=== PATIENT | male | born 1955 | race Caucasian/White ===

== ENCOUNTER 2021-07-16 11:02 | Outpatient (CLI) | payer OTHER, MEDICARE, SELFPAY ==
--- NOTE | 2021-10-12 08:50 | ONC FU_ITS ---
Dr. Canseco follow up note Patient: Junior Gloria Unit #: [id number]: 1955 Dicatated By: Soren Canseco M.D.Date of Visit:Jul 16, 2021 Onc Med Follow-up/Prog Note History of Present Illness: Mr. 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, renal sinus vessels, perinephric adipose tissue, Gerota's fascia, and a single perinephric lymph node replaced by tumor and pathology stage was pT4, pN1, subsequently patient underwent follow-up and during follow-up CT scan of abdomen pelvis done on January 24, 2020 showed multiple enhancing soft tissue nodule on the left, adjacent to the spleen, left para-aortic., and abutting the hemidiaphragm and posterior abdominal wall., Patient underwent CT-guided biopsy of intra-abdominal lesion which confirmed recurrence of disease and systemic therapy with Opdivo/Yervoy was recommended and given every 3 weeks x 4 starting February 2020, completed on April 27, 2020,, follow-up CT scan of abdomen showed slight increase in size of several nodules but was considered and confirmed all possible pseudoprogression by immunotherapy subsequently started on biweekly Opdivo On May 18, 2020, Tolerating well except off and on hypokalemia treated with supplements.Patient received all those treatment at midnight [facility] in [place], [place] Patient denies any history of wheezing, denies any history of skin rash, denies any history of jaundice or uncontrolled diarrhea. Denies any intolerance to cold or warm weather. Patient denies any hemoptysis or hematemesis denies any hematuria denies any abdominal pain denies any jaundice denies any lower extremity edema denies any shortness of breath or palpitation denies any weight loss Medications: Ezetimibe 1 Tablet (of 10 mg) Oral daily, Losartan Potassium 1 Tablet (of 50 mg) Oral daily, Potassium 1 Tablet (of 99 mg) Oral daily, Sertraline HCl 1 Tablet (of 50 mg) Oral daily Allergies: No Known Allergies. Review of Systems: Review of Systems is not available for this patient. Vital Signs: Performed on Jul 16, 2021 13:14 Height - 69 in Weight - 238.8 lbs (HIGH) BSA - 2.23 sq.m BMI - 35.26 (HIGH) Temperature - 99.0 F (HIGH) Pulse - 50 /min (LOW) Respiration - 18 /min BP - 174/94 mm(hg) (HIGH) O2 Sat - 96 % Pain - 0 Fatigue - 0 Performance Status: 0 - Fully active, able to carry on all predisease activities without restrictions. (ECOG) Physical Examination: ENMT - No mouth sores, no thrush, no jaundice, Respiratory - Lungs are clear to auscultation, Cardiovascular - Regular rate and rhythm of heart, Abdomen - Soft, bowel sounds present, Extremities - No visible edema. Lab/Imaging: Most recent lab results are not available for this patient. 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 And soft tissue metastasis abutting spleen. Largest implant on the left hemidiaphragm previously measured 2.5 x 2 cm now 3.7 x 2.5 cm. There is an adjacent implant that has increased in size. And implant slightly more lateral to the spleen however is slightly less bulky. Left adrenal metastasis is also slightly smaller. Overall small left periaortic node at the level of adrenal gland has increased from 8 mm to 12 mm. Right kidney normal appearance. Plan: Discussed with patient regarding his disease status and treatment options, patient has no new signs symptom suggestive of disease progression, at this point, will consider baseline CBC, CMP, TSH and cortisol level. And also resume biweekly Opdivo 240 mg intravenously. All the side effect possible benefits were discussed again, patient is aware of long-term and short-term side effects with immunotherapy, as per patient he was alerted about hypokalemia associated with immunotherapy. [place] he is ready to resume his single agent Opdivo here in [place]. We will obtain approval from his insurance and restart him on Opdivo 240 mg intravenously every 2 weeks. And will consider follow-up CT scan of chest abdomen pelvis in a month. Once we have approval from his insurance, patient will return to clinic for his Opdivo infusion and return to clinic 2 weeks after his Opdivo infusion, with CBC CMP. Signed By: Soren Canseco M.D. <<Signature on File>>
== END 2021-07-16 11:03 | disposition home or self-care (01) ==
PROVIDERS: Visit Provider Internal Medicine Hematology & Oncology
DX: C64.2 Malignant neoplasm of left kidney, except renal pelvis (principal); C77.8 Secondary and unspecified malignant neoplasm of lymph nodes of multiple regions; C78.89 Secondary malignant neoplasm of other digestive organs; C79.72 Secondary malignant neoplasm of left adrenal gland; I10 Essential (primary) hypertension; E78.5 Hyperlipidemia, unspecified; F32.9 Major depressive disorder, single episode, unspecified; Z79.899 Other long term (current) drug therapy; Z92.25 Personal history of immunosuppression therapy; Z90.5 Acquired absence of kidney
CPT/HCPCS: 99205

== ENCOUNTER 2021-08-13 10:58 | Outpatient (CLI) | payer OTHER, MEDICARE, SELFPAY ==
[2021-08-13 11:37] LABS: Basophils % 0.7 %; Eosinophils # 0.1 10^3/uL (0.0-0.8); Eosinophils % 2.2 %; Hematocrit 46.7 % (42.0-52.0); Hemoglobin 15.3 g/dL (11.7-16.6); Lymphocytes # 1.9 10^3/uL (0.8-4.8); Lymphocytes % 33.4 %; Mean Corpuscular HGB Conc 32.8 g/dL (30.0-36.0); Mean Corpuscular Hemoglobin 29.1 pg (28.0-34.0); Mean Corpuscular Volume 88.8 fl (80-94); Mean Platelet Volume 9.8 fL (7.4-10.4); Monocytes # 0.7 10^3/uL (0.2-0.9); Monocytes % 11.5 %; Neutrophils # 3.02 10^3/uL (1.8-7.7); Nucleated Red Blood Cells % 0 %; Platelet Count 225 10^3/cmm (130-400); Red Blood Count 5.26 10^6/uL (4.1-5.3); Red Cell Distribution Width 12.2 % (12.1-15.1); White Blood Count 5.8 10^3/uL (4.0-10.0)
[2021-08-13 12:17] LABS: Alanine Aminotransferase 19 U/L (0-41); Albumin Level 4.1 g/dL (3.5-5.2); Alkaline Phosphatase 74 IU/L (40-130); Anion Gap 16.7 (5-19); Aspartate Amino Transferase 17 U/L (0-40); Blood Urea Nitrogen 18 mg/dL (8-23); Calcium 9.4 mg/dL (8.5-10.5); Carbon Dioxide 27 mmol/L (22-29); Chloride 101 mmol/L (98-107); Globulin 2.9 g/dL (1.3-4.6); Glucose 94 mg/dL (65-115); Osmolality Calculated 292 mOsm/kg (285-295); Potassium 4.7 mmol/L (3.5-5.1); Sodium 140 mmol/L (136-145); Thyroid Stimulating Hormone 1.37 uIU/mL (0.27-4.20); Total Bilirubin 0.6 mg/dL (0.15-1.2)
[2021-08-13 12:25] LABS: Cortisol Random 9.06 ug/dL (2.47-19.5)
== END 2021-08-13 10:59 | disposition home or self-care (01) ==
LOC: ONCMED 11:00
PROVIDERS: Visit Provider Internal Medicine Hematology & Oncology
DX: C64.2 Malignant neoplasm of left kidney, except renal pelvis (principal)
CPT/HCPCS: 36415; 80053; 82533; 84443; 85025

== ENCOUNTER 2021-08-22 09:55 | Outpatient (CLI) | payer MEDICARE, OTHER, SELFPAY ==
--- NOTE | 2021-08-22 10:07 | CT_ITS ---
WS: [id number] CT CHEST, ABDOMEN AND PELVIS WITH CONTRAST. HISTORY: MALIGNANT NEOPLASM OF LEFT KIDNEY TECHNIQUE: Contiguous 5 mm axial imaging performed through the chest, abdomen and pelvis with IV cont rast, oral contrast has been provided. Coronal and sagittal reformats chest. Coronal and sagittal ref ormats through the abdomen and pelvis. All CT scans at [facility] use at least one of these d ose optimization techniques: automated exposure control; mA and/or kV adjustment per patient size (in cludes targeted exams where dose is matched to clinical indication); or iterative reconstruction. CONTRAST: Omnipaque 300; 95 mL IV. DLP: 2520.43 mGycm COMPARISON: None available. Chest CT: No pulmonary nodule or mass. Area of irregular opacification at the medial LEFT lower lobe may be an area of atelectasis. No pleural effusion. No mediastinal or hilar adenopathy. Mild enlargem ent the LEFT heart chambers. No pericardial effusion. Normal variant LEFT vertebral artery arises fro m the aorta. Pulmonary artery is enlarged at 3.7 cm in diameter. Small hiatal hernia. Abdomen CT: Mild hepatic steatosis. 2. Small to characterize hypodense area measures 2 mm in the RIGHT lobe. Normal portal vein. Normal g allbladder. Normal pancreas. 11 mm nodule adjacent to the tail of the pancreas enhances similar to th e spleen. This is probably a splenule. Size of the spleen is normal. RIGHT kidney is normally enhanci ng. Normal RIGHT adrenal gland. Mild atherosclerosis aorta. Status post LEFT nephrectomy as per history. Abnormal appearance of the LEFT renal bed. There are mul tiple lobulated soft tissue masses beginning posterior to the spleen and along the LEFT diaphragmatic crura. Suspect this soft tissue implant is extending into the spleen. There is thickening of the LEF T diaphragmatic crura with multiple small nodules invading the crura extending posterior to the splee n and along the diaphragmatic surface. Soft tissue nodules and fatty infiltration extending into the LEFT para-aortic region. There is thickening of the LEFT psoas muscle at the level of the renal bed. Diaphragmatic crura largest mass measures 3.1 x 2.4 cm and has a necrotic appearing center. There are several soft tissue nodular densities which extend toward the expected location of the LEFT adrenal gland. Largest LEFT retroperitoneal nodule measures 3.1 x 3.1 cm. Additional cluster of soft tissue i mplants just lateral to the LEFT splenic flexure measures 3.7 x 2.5 cm. Multiple omental implants ant eriorly within the LEFT abdomen with the largest measuring 2.0 x [address]: No free fluid in the pelvis. No adenopathy. Slightly prominent heterogeneous prostate glan d with mild wall thickening of the urinary bladder. No osteoblastic or osteolytic bone disease. Subchondral lytic area involving the RIGHT femoral head. CT/CT chest abd pel w con* IMPRESSION: 1. Status post LEFT nephrectomy. 2. Findings consistent with recurrent LEFT renal metastatic disease. Numerous soft tissue implants are noted within the LEFT renal bed which extend into the diaphragmatic crura and LEFT psoas muscle. There are additional metastatic impl ants invading the posterior spleen and the adrenal gland. Omental implants clau g the anterior and LEFT lateral abdomen/omentum. Small implant versus splenule at the pancreatic tail. 3. Nonspecific lytic lesion in the RIGHT femoral head. Cannot exclude early me tastatic bone disease. 4. Irregular opacification medial LEFT lower lobe may be an area of atelectasi s. No pulmonary nodule or mass. 5. Mild pulmonary hypertension.
[2021-08-22] MEDS: iohexol 300 mg/mL 100 mL Btl IV (11:51)
== END 2021-08-22 09:56 | disposition home or self-care (01) ==
PROVIDERS: Visit Provider Internal Medicine Hematology & Oncology
DX: C64.2 Malignant neoplasm of left kidney, except renal pelvis (principal); Z90.5 Acquired absence of kidney; I27.20 Pulmonary hypertension, unspecified
CPT/HCPCS: 71260; 74177; Q9967

== ENCOUNTER 2021-08-27 13:30 | Outpatient (CLI) | payer MEDICARE, OTHER, SELFPAY ==
[2021-08-27 14:32] LABS: Basophils % 0.5 %; Eosinophils # 0.2 10^3/uL (0.0-0.8); Eosinophils % 2.6 %; Hematocrit 43.3 % (42.0-52.0); Hemoglobin 14.4 g/dL (11.7-16.6); Lymphocytes # 1.9 10^3/uL (0.8-4.8); Lymphocytes % 28.8 %; Mean Corpuscular HGB Conc 33.3 g/dL (30.0-36.0); Mean Corpuscular Hemoglobin 29.5 pg (28.0-34.0); Mean Corpuscular Volume 88.7 fl (80-94); Mean Platelet Volume 9.8 fL (7.4-10.4); Monocytes # 0.7 10^3/uL (0.2-0.9); Monocytes % 9.9 %; Neutrophils % 57.9 %; Nucleated Red Blood Cells % 0 %; Platelet Count 218 10^3/cmm (130-400); Red Blood Count 4.88 10^6/uL (4.1-5.3); Red Cell Distribution Width 12.4 % (12.1-15.1); White Blood Count 6.6 10^3/uL (4.0-10.0)
[2021-08-27 15:12] LABS: Albumin Level 4.1 g/dL (3.5-5.2); Alkaline Phosphatase 69 IU/L (40-130); Blood Urea Nitrogen 19 mg/dL (8-23); Calcium 8.7 mg/dL (8.5-10.5); Carbon Dioxide 29 mmol/L (22-29); Chloride 102 mmol/L (98-107); Cortisol Random 6.84 ug/dL (2.47-19.5); Globulin 2.4 g/dL (1.3-4.6); Glomerular Filtration Rate 60.6 mL/min (90-130); Glucose 119 mg/dL (65-115); Osmolality Calculated 293 mOsm/kg (285-295); Sodium 140 mmol/L (136-145); Thyroid Stimulating Hormone 1.56 uIU/mL (0.27-4.20); Total Bilirubin 0.3 mg/dL (0.15-1.2); Total Protein 6.5 g/dL (6.6-8.7)
[2021-08-27 15:15] LABS: Alanine Aminotransferase 18 U/L (0-41); Anion Gap 13.7 (5-19); Potassium 4.7 mmol/L (3.5-5.1)
[2021-08-27 15:20] LABS: Aspartate Amino Transferase 5 U/L (0-40)
== END 2021-08-27 13:31 | disposition home or self-care (01) ==
PROVIDERS: Visit Provider Internal Medicine Hematology & Oncology
DX: C64.2 Malignant neoplasm of left kidney, except renal pelvis (principal); Z79.899 Other long term (current) drug therapy
CPT/HCPCS: 36415; 80053; 82533; 84443; 85025

== ENCOUNTER 2021-09-10 08:47 | Outpatient (CLI) | payer MEDICARE, OTHER, SELFPAY ==
[2021-09-10 09:50] LABS: Basophils % 0.5 %; Eosinophils # 0.2 10^3/uL (0.0-0.8); Hematocrit 45.2 % (42.0-52.0); Hemoglobin 14.8 g/dL (11.7-16.6); Lymphocytes # 1.6 10^3/uL (0.8-4.8); Lymphocytes % 26.4 %; Mean Corpuscular HGB Conc 32.7 g/dL (30.0-36.0); Mean Corpuscular Hemoglobin 29.2 pg (28.0-34.0); Mean Corpuscular Volume 89.3 fl (80-94); Mean Platelet Volume 9.7 fL (7.4-10.4); Monocytes # 0.7 10^3/uL (0.2-0.9); Monocytes % 10.7 %; Neutrophils # 3.51 10^3/uL (1.8-7.7); Neutrophils % 58.1 %; Nucleated Red Blood Cells % 0 %; Platelet Count 224 10^3/cmm (130-400); Red Blood Count 5.06 10^6/uL (4.1-5.3); Red Cell Distribution Width 12.7 % (12.1-15.1); White Blood Count 6.1 10^3/uL (4.0-10.0)
[2021-09-10 09:59] LABS: Alanine Aminotransferase 17 U/L (0-41); Albumin Level 4.1 g/dL (3.5-5.2); Alkaline Phosphatase 73 IU/L (40-130); Blood Urea Nitrogen 18 mg/dL (8-23); Calcium 8.7 mg/dL (8.5-10.5); Carbon Dioxide 23 mmol/L (22-29); Chloride 103 mmol/L (98-107); Cortisol Random 9.22 ug/dL (2.47-19.5); Globulin 2.5 g/dL (1.3-4.6); Glomerular Filtration Rate 74.8 mL/min (90-130); Glucose 101 mg/dL (65-115); Osmolality Calculated 288 mOsm/kg (285-295); Sodium 138 mmol/L (136-145); Thyroid Stimulating Hormone 1.57 uIU/mL (0.27-4.20); Total Bilirubin 0.5 mg/dL (0.15-1.2); Total Protein 6.6 g/dL (6.6-8.7)
[2021-09-10 10:04] LABS: Anion Gap 16.7 (5-19); Aspartate Amino Transferase 19 U/L (0-40); Potassium 4.7 mmol/L (3.5-5.1)
== END 2021-09-10 08:48 | disposition home or self-care (01) ==
PROVIDERS: Visit Provider Internal Medicine Hematology & Oncology
DX: Z51.12 Encounter for antineoplastic immunotherapy (principal); C64.2 Malignant neoplasm of left kidney, except renal pelvis; K44.9 Diaphragmatic hernia without obstruction or gangrene; I70.0 Atherosclerosis of aorta; J98.11 Atelectasis; I27.20 Pulmonary hypertension, unspecified; Z79.899 Other long term (current) drug therapy
CPT/HCPCS: 80053; 82533; 84443; 85025; 99215; J7050; J9299

== ENCOUNTER 2021-09-24 14:29 | Outpatient (CLI) | payer MEDICARE, OTHER, SELFPAY ==
[2021-09-24 14:57] LABS: Basophils # 0.1 10^3/uL (0.0-0.1); Basophils % 0.7 %; Eosinophils # 0.2 10^3/uL (0.0-0.8); Eosinophils % 2.8 %; Hematocrit 45.4 % (42.0-52.0); Hemoglobin 15.1 g/dL (11.7-16.6); Lymphocytes # 2.1 10^3/uL (0.8-4.8); Lymphocytes % 30.1 %; Mean Corpuscular HGB Conc 33.3 g/dL (30.0-36.0); Mean Corpuscular Hemoglobin 29.3 pg (28.0-34.0); Mean Corpuscular Volume 88.2 fl (80-94); Mean Platelet Volume 9.8 fL (7.4-10.4); Monocytes # 0.7 10^3/uL (0.2-0.9); Neutrophils # 3.99 10^3/uL (1.8-7.7); Nucleated Red Blood Cells % 0 %; Platelet Count 230 10^3/cmm (130-400); Red Blood Count 5.15 10^6/uL (4.1-5.3); Red Cell Distribution Width 12.4 % (12.1-15.1); White Blood Count 7.1 10^3/uL (4.0-10.0)
[2021-09-24 15:29] LABS: Alanine Aminotransferase 18 U/L (0-41); Albumin Level 4.3 g/dL (3.5-5.2); Alkaline Phosphatase 80 IU/L (40-130); Anion Gap 17.3 (5-19); Aspartate Amino Transferase 17 U/L (0-40); Blood Urea Nitrogen 17 mg/dL (8-23); Calcium 8.9 mg/dL (8.5-10.5); Carbon Dioxide 24 mmol/L (22-29); Chloride 100 mmol/L (98-107); Cortisol Random 7.63 ug/dL (2.47-19.5); Glomerular Filtration Rate 74.8 mL/min (90-130); Glucose 84 mg/dL (65-115); Osmolality Calculated 285 mOsm/kg (285-295); Potassium 4.3 mmol/L (3.5-5.1); Sodium 137 mmol/L (136-145); Thyroid Stimulating Hormone 1.65 uIU/mL (0.27-4.20); Total Bilirubin 0.4 mg/dL (0.15-1.2); Total Protein 7.3 g/dL (6.6-8.7)
== END 2021-09-24 14:30 | disposition home or self-care (01) ==
LOC: ONCMED 14:36
PROVIDERS: Visit Provider Nurse Practitioner Family
DX: C64.2 Malignant neoplasm of left kidney, except renal pelvis (principal); C77.2 Secondary and unspecified malignant neoplasm of intra-abdominal lymph nodes; C78.89 Secondary malignant neoplasm of other digestive organs; C79.72 Secondary malignant neoplasm of left adrenal gland; E78.5 Hyperlipidemia, unspecified; I10 Essential (primary) hypertension; F41.0 Panic disorder [episodic paroxysmal anxiety]; Z79.899 Other long term (current) drug therapy
CPT/HCPCS: 80053; 82533; 84443; 85025; 96413; 99215; J7050; J9299

== ENCOUNTER 2021-10-08 09:10 | Outpatient (CLI) | payer MEDICARE, OTHER, SELFPAY ==
[2021-10-08 09:51] LABS: Basophils % 0.6 %; Eosinophils # 0.2 10^3/uL (0.0-0.8); Eosinophils % 2.8 %; Hematocrit 43.9 % (42.0-52.0); Hemoglobin 14.5 g/dL (11.7-16.6); Lymphocytes # 1.6 10^3/uL (0.8-4.8); Lymphocytes % 25.2 %; Mean Corpuscular Volume 87.8 fl (80-94); Mean Platelet Volume 9.9 fL (7.4-10.4); Monocytes # 0.7 10^3/uL (0.2-0.9); Monocytes % 10.2 %; Neutrophils # 3.91 10^3/uL (1.8-7.7); Nucleated Red Blood Cells % 0 %; Platelet Count 226 10^3/cmm (130-400); Red Cell Distribution Width 12.3 % (12.1-15.1); White Blood Count 6.4 10^3/uL (4.0-10.0)
[2021-10-08 10:15] LABS: Alanine Aminotransferase 19 U/L (0-41); Albumin Level 4.2 g/dL (3.5-5.2); Alkaline Phosphatase 79 IU/L (40-130); Anion Gap 15.6 (5-19); Aspartate Amino Transferase 18 U/L (0-40); Blood Urea Nitrogen 17 mg/dL (8-23); Calcium 8.6 mg/dL (8.5-10.5); Carbon Dioxide 23 mmol/L (22-29); Chloride 103 mmol/L (98-107); Globulin 2.7 g/dL (1.3-4.6); Glucose 106 mg/dL (65-115); Osmolality Calculated 286 mOsm/kg (285-295); Potassium 4.6 mmol/L (3.5-5.1); Sodium 137 mmol/L (136-145); Thyroid Stimulating Hormone 1.77 uIU/mL (0.27-4.20); Total Bilirubin 0.5 mg/dL (0.15-1.2); Total Protein 6.9 g/dL (6.6-8.7)
[2021-10-08 11:00] LABS: Cortisol Random 12.01 ug/dL (2.47-19.5)
[2021-10-08] MEDS: sodium chloride 0.9% 250 ML 500 ML IV (12:15)
--- NOTE | 2021-10-08 16:24 | ONC FU_ITS ---
Dr. Canseco follow up note Patient: Junior Garcia Unit #: [id number]: 1955 Dicatated By: Soren Canseco M.D.Date of Visit:Oct 08, 2021 Onc Med Follow-up/Prog Note History of Present Illness: Mr. 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, renal sinus vessels, perinephric adipose tissue, Gerota's fascia, and a single perinephric lymph node replaced by tumor and pathology stage was pT4, pN1, subsequently patient underwent follow-up and during follow-up CT scan of abdomen pelvis done on January 24, 2020 showed multiple enhancing soft tissue nodule on the left, adjacent to the spleen, left para-aortic., and abutting the hemidiaphragm and posterior abdominal wall., Patient underwent CT-guided biopsy of intra-abdominal lesion which confirmed recurrence of disease and systemic therapy with Opdivo/Yervoy was recommended and given every 3 weeks x 4 starting February 2020, completed on April 27, 2020,, follow-up CT scan of abdomen showed slight increase in size of several nodules but was considered and confirmed all possible pseudoprogression by immunotherapy subsequently started on biweekly Opdivo On May 18, 2020, Tolerating well except off and on hypokalemia treated with supplements.Patient received all those treatment at midnight [facility] oncology in [place], [place] Follow-up CT scan done on August 22, 2021 shows status post left nephrectomy, findings consistent with recurrent left renal metastatic disease. Numerous soft tissue implants are noted within left renal bed which extends into diaphragmatic crura and left psoas muscle. Additional metastatic implants invading the posterior spleen and adrenal gland. Omental implants along the anterior and left lateral abdominal/omental. Implant versus splenule at pancreatic tail. Nonspecific lytic lesion in the right femoral head. Irregular opacification medial left lower lobe may be an area of atelectasis. Mild pulmonary hypertension., Came for follow-up, denies any specific complaint except cough with whitish phlegm which is chronic in nature, patient denies smoking but patient moved from [place] to [facility] in the recent past. Denies any wheezing or shortness of breath, denies any fever chills denies any abdominal pain denies any diarrhea denies any jaundice, Tolerating nivolumab well otherwise Medications: Ezetimibe 1 Tablet (of 10 mg) Oral daily, Losartan Potassium 1 Tablet (of 50 mg) Oral daily, Potassium 1 Tablet (of 99 mg) Oral daily, Sertraline HCl 1 Tablet (of 50 mg) Oral daily Allergies: No Known Allergies. Review of Systems: Review of Systems is not available for this patient. Vital Signs: Performed on Oct 08, 2021 11:00 Height - 69.00 in Weight - 237.4 lbs (HIGH) BSA - 2.22 sq.m BMI - 35.06 (HIGH) Temperature - 97.6 F (LOW) Pulse - 53 /min (LOW) Respiration - 18 /min BP - 152/90 mm(hg) (HIGH) O2 Sat - 97 % Pain - 0 Fatigue - 0 Performance Status: 0 - Fully active, able to carry on all predisease activities without restrictions. (ECOG) Physical Examination: ENMT - No mouth sores, no thrush, no jaundice, Respiratory - Lungs are clear to auscultation, Cardiovascular - Regular rate and rhythm of heart, Abdomen - Soft, bowel sounds present, Extremities - No visible edema. Lab/Imaging: Test performed on Sep 24, 2021 15:59 TSH 1.65 uU/mL Cortisol (AM) 7.63 mcg/dL Glucose 84 mg/dL BUN 17 mg/dL Creatinine 1.0 mg/dL Cr Clearance (Est) 110.49 mL/min Sodium 137 mmol/L Potassium 4.3 mmol/L Chloride 100 mmol/L CO2 24 mmol/L Calcium 8.9 mg/dL Protein, Total 7.3 g/dL Albumin 4.3 g/dL Globulin 3.0 g/dL Bilirubin, Total 0.4 mg/dL Alkaline Phosphatase 80 International Units/L AST (SGOT) 17 International Units/L ALT (SGPT) 18 International Units/L WBC 7.1 10^9/L RBC 5.15 10^12/L HGB 15.1 g/dL HCT 45.4 % MCV 88.2 fl MCH 29.3 pg MCHC 33.3 g/dL RDW 12.4 % Platelet Count 230 10^9/L MPV 9.8 fL Neutrophils (Gran) 3.99 10^9/L Lymphocytes 2.1 10^9/L Monocytes 0.7 10^9/L Eosinophils 0.2 10^9/L Basophils 0.1 10^9/L Manual Lymphocytes 30.1 % Manual Monocytes 10.0 % Manual Eosinophils 2.8 % Manual Basophils 0.7 % NRBCs 0 /100 WBC Impression: 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 And soft tissue metastasis abutting spleen. Largest implant on the left hemidiaphragm previously measured 2.5 x 2 cm now 3.7 x 2.5 cm. There is an adjacent implant that has increased in size. And implant slightly more lateral to the spleen however is slightly less bulky. Left adrenal metastasis is also slightly smaller. Overall small left periaortic node at the level of adrenal gland has increased from 8 mm to 12 mm. Right kidney normal appearance. Plan: Discussed with patient regarding his labs white blood count 6.4 hemoglobin 14.5 hematocrit 43.9 platelets 226,000 CMP within normal limits TSH 1.77 Clinically, patient doing well with no new signs symptom suggestive of disease progression except chronic productive cough, which could be multifactorial including postnasal drip due to seasonal allergies as patient has moved from [place] to [facility]. Patient was advised to try [id number] Zyrtec or Claritin, steam inhalation and saline gargles., If there is no improvement, will consider chest x-ray, in the meantime, we will continue his biweekly nivolumab, will proceed with next dose today then return to clinic in 2 weeks with CBC CMP. Signed By: Soren Canseco M.D. <<Signature on File>>
== END 2021-10-08 09:11 | disposition home or self-care (01) ==
LOC: ONCMED 09:13
PROVIDERS: Visit Provider Internal Medicine Hematology & Oncology
DX: Z51.12 Encounter for antineoplastic immunotherapy (principal); C64.2 Malignant neoplasm of left kidney, except renal pelvis; C78.01 Secondary malignant neoplasm of right lung; C78.02 Secondary malignant neoplasm of left lung; C78.89 Secondary malignant neoplasm of other digestive organs; C79.72 Secondary malignant neoplasm of left adrenal gland; Z79.899 Other long term (current) drug therapy
CPT/HCPCS: 80053; 82533; 84443; 85025; 96413; 99215; J7050; J9299

== ENCOUNTER 2021-10-22 11:03 | Outpatient (CLI) | payer MEDICARE, OTHER, SELFPAY ==
[2021-10-22 11:51] LABS: Basophils % 0.7 %; Eosinophils # 0.2 10^3/uL (0.0-0.8); Eosinophils % 2.6 %; Hematocrit 44.3 % (42.0-52.0); Hemoglobin 14.6 g/dL (11.7-16.6); Lymphocytes # 1.6 10^3/uL (0.8-4.8); Lymphocytes % 25.9 %; Mean Corpuscular Hemoglobin 29.9 pg (28.0-34.0); Mean Corpuscular Volume 90.6 fl (80-94); Mean Platelet Volume 9.8 fL (7.4-10.4); Monocytes # 0.7 10^3/uL (0.2-0.9); Monocytes % 10.8 %; Neutrophils # 3.65 10^3/uL (1.8-7.7); Neutrophils % 59.7 %; Nucleated Red Blood Cells % 0 %; Platelet Count 232 10^3/cmm (130-400); Red Blood Count 4.89 10^6/uL (4.1-5.3); Red Cell Distribution Width 12.2 % (12.1-15.1); White Blood Count 6.1 10^3/uL (4.0-10.0)
[2021-10-22 12:23] LABS: Cortisol Random 9.12 ug/dL (2.47-19.5)
[2021-10-22 12:54] LABS: Anion Gap 16.9 (5-19); Blood Urea Nitrogen 19 mg/dL (8-23); Carbon Dioxide 26 mmol/L (22-29); Chloride 99 mmol/L (98-107); Glomerular Filtration Rate 74.8 mL/min (90-130); Glucose 122 mg/dL (65-115); Osmolality Calculated 288 mOsm/kg (285-295); Potassium 4.9 mmol/L (3.5-5.1); Sodium 137 mmol/L (136-145)
[2021-10-22 12:55] LABS: Alanine Aminotransferase 20 U/L (0-41); Albumin Level 4.2 g/dL (3.5-5.2); Alkaline Phosphatase 78 IU/L (40-130); Aspartate Amino Transferase 17 U/L (0-40); Globulin 2.5 g/dL (1.3-4.6); Thyroid Stimulating Hormone 1.83 uIU/mL (0.27-4.20); Total Bilirubin 0.3 mg/dL (0.15-1.2); Total Protein 6.7 g/dL (6.6-8.7)
== END 2021-10-22 11:04 | disposition home or self-care (01) ==
LOC: ONCMED 11:12
PROVIDERS: PCP Internal Medicine; Visit Provider Nurse Practitioner Family
DX: Z51.12 Encounter for antineoplastic immunotherapy (principal); C64.2 Malignant neoplasm of left kidney, except renal pelvis; C79.89 Secondary malignant neoplasm of other specified sites; E78.5 Hyperlipidemia, unspecified; I10 Essential (primary) hypertension
CPT/HCPCS: 80053; 82533; 84443; 85025; 96413; 99215; J7050; J9299

== ENCOUNTER 2021-11-05 13:02 | Outpatient (CLI) | payer MEDICARE, OTHER, SELFPAY ==
[2021-11-05 13:50] LABS: Basophils % 0.5 %; Eosinophils # 0.2 10^3/uL (0.0-0.8); Eosinophils % 2.3 %; Hematocrit 46.1 % (42.0-52.0); Lymphocytes % 27.6 %; Mean Corpuscular HGB Conc 32.5 g/dL (30.0-36.0); Mean Corpuscular Hemoglobin 29.3 pg (28.0-34.0); Mean Platelet Volume 9.9 fL (7.4-10.4); Monocytes # 0.7 10^3/uL (0.2-0.9); Monocytes % 9.3 %; Neutrophils # 4.36 10^3/uL (1.8-7.7); Neutrophils % 59.8 %; Nucleated Red Blood Cells % 0 %; Platelet Count 247 10^3/cmm (130-400); Red Blood Count 5.12 10^6/uL (4.1-5.3); Red Cell Distribution Width 12.5 % (12.1-15.1); White Blood Count 7.3 10^3/uL (4.0-10.0)
[2021-11-05] MEDS: sodium chloride 0.9% 250 ML 300 ML IV (14:23)
[2021-11-05 14:27] LABS: Alanine Aminotransferase 19 U/L (0-41); Albumin Level 4.3 g/dL (3.5-5.2); Alkaline Phosphatase 84 IU/L (40-130); Anion Gap 16.4 (5-19); Aspartate Amino Transferase 20 U/L (0-40); Blood Urea Nitrogen 16 mg/dL (8-23); Calcium 9.9 mg/dL (8.5-10.5); Carbon Dioxide 22 mmol/L (22-29); Chloride 103 mmol/L (98-107); Cortisol Random 9.95 ug/dL (2.47-19.5); Globulin 2.9 g/dL (1.3-4.6); Glucose 90 mg/dL (65-115); Osmolality Calculated 285 mOsm/kg (285-295); Potassium 4.4 mmol/L (3.5-5.1); Sodium 137 mmol/L (136-145); Thyroid Stimulating Hormone 1.25 uIU/mL (0.27-4.20); Total Bilirubin 0.4 mg/dL (0.15-1.2); Total Protein 7.2 g/dL (6.6-8.7)
== END 2021-11-05 13:03 | disposition home or self-care (01) ==
LOC: ONCMED 13:07
PROVIDERS: PCP Internal Medicine; Visit Provider Internal Medicine Hematology & Oncology
DX: Z51.12 Encounter for antineoplastic immunotherapy (principal); C64.2 Malignant neoplasm of left kidney, except renal pelvis; C78.01 Secondary malignant neoplasm of right lung; C78.02 Secondary malignant neoplasm of left lung; C78.89 Secondary malignant neoplasm of other digestive organs; C79.72 Secondary malignant neoplasm of left adrenal gland; E03.9 Hypothyroidism, unspecified; Z79.899 Other long term (current) drug therapy
CPT/HCPCS: 80053; 82533; 84443; 85025; 96413; J7050; J9299

== ENCOUNTER 2021-11-26 07:58 | Outpatient (CLI) | payer MEDICARE, OTHER, SELFPAY ==
[2021-11-26 08:47] LABS: Basophils # 0.1 10^3/uL (0.0-0.1); Basophils % 0.6 %; Eosinophils # 0.2 10^3/uL (0.0-0.8); Eosinophils % 2.3 %; Hemoglobin 14.6 g/dL (11.7-16.6); Lymphocytes # 1.8 10^3/uL (0.8-4.8); Lymphocytes % 23.4 %; Mean Corpuscular HGB Conc 32.4 g/dL (30.0-36.0); Mean Corpuscular Hemoglobin 28.8 pg (28.0-34.0); Mean Corpuscular Volume 88.8 fl (80-94); Monocytes # 0.9 10^3/uL (0.2-0.9); Monocytes % 11.8 %; Neutrophils % 61.5 %; Nucleated Red Blood Cells % 0 %; Platelet Count 297 10^3/cmm (130-400); Red Blood Count 5.07 10^6/uL (4.1-5.3); Red Cell Distribution Width 12.8 % (12.1-15.1); White Blood Count 7.8 10^3/uL (4.0-10.0)
[2021-11-26 10:10] LABS: Alanine Aminotransferase 20 U/L (0-41); Albumin Level 4.3 g/dL (3.5-5.2); Alkaline Phosphatase 94 IU/L (40-130); Anion Gap 14.5 (5-19); Aspartate Amino Transferase 19 U/L (0-40); Blood Urea Nitrogen 17 mg/dL (8-23); Calcium 9.4 mg/dL (8.5-10.5); Carbon Dioxide 26 mmol/L (22-29); Chloride 103 mmol/L (98-107); Globulin 3.3 g/dL (1.3-4.6); Glomerular Filtration Rate 84.4 mL/min (90-130); Glucose 117 mg/dL (65-115); Osmolality Calculated 289 mOsm/kg (285-295); Potassium 5.5 mmol/L (3.5-5.1); Sodium 138 mmol/L (136-145); Total Bilirubin 0.6 mg/dL (0.15-1.2); Total Protein 7.6 g/dL (6.6-8.7)
[2021-11-26 10:20] LABS: Cortisol Random 8.99 ug/dL (2.47-19.5)
[2021-11-26 10:59] LABS: Thyroid Stimulating Hormone 1.32 uIU/mL (0.27-4.20)
--- NOTE | 2021-11-28 15:21 | ONC FU_ITS ---
Denae Lema Progress Note Patient: Junior Garcia Unit #: [id number]: 1955 Dicatated By: Denae Lema N.P.Date of Visit:Nov 26, 2021 Onc MED Follow-up/Prog Note Chief Complaint: Metastatic renal cell carcinoma History of Present Illness: Mr. 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, renal sinus vessels, perinephric adipose tissue, Gerota's fascia, and a single perinephric lymph node replaced by tumor and pathology stage was pT4, pN1, subsequently patient underwent follow-up and during follow-up CT scan of abdomen pelvis done on January 24, 2020 showed multiple enhancing soft tissue nodule on the left, adjacent to the spleen, left para-aortic., and abutting the hemidiaphragm and posterior abdominal wall., Patient underwent CT-guided biopsy of intra-abdominal lesion which confirmed recurrence of disease and systemic therapy with Opdivo/Yervoy was recommended and given every 3 weeks x 4 starting February 2020, completed on April 27, 2020,, follow-up CT scan of abdomen showed slight increase in size of several nodules but was considered and confirmed all possible pseudoprogression by immunotherapy subsequently started on biweekly Opdivo On May 18, 2020, Tolerating well except off and on hypokalemia treated with supplements.Patient received all those treatment at midnight [facility] in [place], [place] Follow-up CT scan done on August 22, 2021 shows status post left nephrectomy, findings consistent with recurrent left renal metastatic disease. Numerous soft tissue implants are noted within left renal bed which extends into diaphragmatic crura and left psoas muscle. Additional metastatic implants invading the posterior spleen and adrenal gland. Omental implants along the anterior and left lateral abdominal/omental. Implant versus splenule at pancreatic tail. Nonspecific lytic lesion in the right femoral head. Irregular opacification medial left lower lobe may be an area of atelectasis. Mild pulmonary hypertension., Presents today for follow-up. Denies any problems. No shortness of breath, no chest pain, no nausea or vomiting, no diarrhea or constipation. He does have a chronic cough with clear sputum. He does not experience any abnormal fatigue. His appetite is good. Review Of Symptoms:See above Past Medical History: Hyperlipidemia Hypertension Panic disorder Covid 19 in 2020 Past Surgical History: Covid 19 vaccine-Pfizer Hernia repair Left nephrectomy Vasectomy Allergies: No Known Allergies. Medications: Ezetimibe 1 Tablet (of 10 mg) Oral daily Losartan Potassium 1 Tablet (of 100 mg) Oral daily Potassium 1 Tablet (of 99 mg) Oral daily Sertraline HCl 1 Tablet (of 50 mg) Oral daily ZyrTEC Allergy 1 Tablet (of 10 mg) Oral daily Family History: There is no documented family history. Social History: Mr. Garcia is . Mr. Garcia has never smoked. He has no history of drinking. Physical Examination: Performed on Nov 26, 2021 10:26: Height - 69.00 in, Weight - 241.4 lbs (LOW), BSA - 2.24 sq.m, BMI - 35.65 (HIGH), Temperature - 98.4 F, Pulse - 48 /min (LOW), Respiration - 16 /min, BP - 174/89 mm(hg) (HIGH), O2 Sat - 96 %, Pain - 0, and Fatigue - 0. Performance Status: 0 - Fully active, able to carry on all predisease activities without restrictions. (ECOG) Constitutional Alert, cooperative, oriented. Mood and affect appropriate. Appears close to chronological age. Well nourished. Well developed. Head Normocephalic; no scars. Eyes Conjunctivae and sclerae are clear and without icterus. Pupils are reactive and equal. Respiratory Lungs are clear to auscultation without rhonchi or wheezing. Cardiovascular Regular rate and rhythm of heart without murmurs, gallops or rubs. Abdomen Non-tender, non-distended, no masses, ascites or hepatosplenomegaly. Good bowel sounds. No guarding or rebound tenderness. Extremities No visible deformities, no cyanosis, clubbing or edema. Pulses 3+ and equal bilaterally. Musculoskeletal No tenderness or swelling, normal range of motion without obvious weakness. Psychiatric Alert and oriented times three. Coherent speech. Verbalizes understanding of our discussions today. Laboratory: Test performed on Nov 26, 2021 09:20 Sodium 138 mmol/L TSH 1.32 uIU/mL Potassium 5.5 mmol/L Chloride 103 mmol/L CO2 26 mmol/L Anion Gap 14.5 BUN 17 mg/dL Creatinine 0.9 mg/dL Cr Clearance (Est) 125.05 mL/min eGFR 84.4 mL/min Glucose 117 mg/dL Osmolality - Calculated 289 mOsm/kg Calcium 9.4 mg/dL Protein, Total 7.6 g/dL Albumin 4.3 g/dL Globulin 3.3 g/dL Bilirubin, Total 0.6 mg/dL ALT (SGPT) 20 U/L AST (SGOT) 19 U/L Alkaline Phosphatase 94 IU/L Test performed on Nov 26, 2021 08:38 WBC 7.8 10 3/uL RBC 5.07 10 6/uL HGB 14.6 g/dL HCT 45.0 % MCV 88.8 fl MCH 28.8 pg MCHC 32.4 g/dL RDW 12.8 % Platelet Count 297 10 3/cmm MPV 11.0 fL Neutrophils 4.80 10 3/uL Lymphocytes 1.8 10 3/uL Monocytes 0.9 10 3/uL Eosinophils 0.2 10 3/uL Basophils 0.1 10 3/uL Neutrophil % 61.5 % Lymphocyte % 23.4 % Monocyte % 11.8 % Eosinophil % 2.3 % Basophils % 0.6 % NRBC % 0 % Test performed on Oct 22, 2021 13:17 Cortisol 9.12 mcg/dL Test performed on Sep 24, 2021 15:59 Cortisol (AM) 7.63 mcg/dL Manual Lymphocytes 30.1 % Manual Monocytes 10.0 % Manual Eosinophils 2.8 % Manual Basophils 0.7 % NRBCs 0 /100 WBC Impression: 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 And soft tissue metastasis abutting spleen. Largest implant on the left hemidiaphragm previously measured 2.5 x 2 cm now 3.7 x 2.5 cm. There is an adjacent implant that has increased in size. And implant slightly more lateral to the spleen however is slightly less bulky. Left adrenal metastasis is also slightly smaller. Overall small left periaortic node at the level of adrenal gland has increased from 8 mm to 12 mm. Right kidney normal appearance. Plan: Labs were reviewed with patient CBC 7.8, hemoglobin 14.6, hematocrit 45.0, platelets 297,000. His potassium is slightly elevated at 5.5 we will recheck him in 2 weeks. Other labs are within normal limits. His cortisol is 8.99 and his TSH is 1.32. Clinically patient is doing well with no signs or symptoms of disease progression. We will continue his biweekly nivolumab, will proceed with next dose today then return to clinic in 2 weeks with CBC CMP. Signed By: Denae Lema N.P. <<Signature on File>>
== END 2021-11-26 07:59 | disposition home or self-care (01) ==
PROVIDERS: PCP Internal Medicine; Visit Provider Nurse Practitioner Family
DX: Z51.12 Encounter for antineoplastic immunotherapy (principal); C64.9 Malignant neoplasm of unspecified kidney, except renal pelvis; C79.89 Secondary malignant neoplasm of other specified sites; E78.5 Hyperlipidemia, unspecified; I10 Essential (primary) hypertension; Z86.16 Personal history of COVID-19
CPT/HCPCS: 80053; 82533; 84443; 85025; 96413; 99215; J7050; J9299

== ENCOUNTER 2021-12-10 10:56 | Outpatient (CLI) | payer MEDICARE, OTHER, SELFPAY ==
--- NOTE | 2021-12-10 13:54 | ONC FU_ITS ---
Denae Lema Progress Note Patient: Junior Garcia Unit #: [id number]: 1955 Dicatated By: Denae Lema N.P.Date of Visit:Dec 10, 2021 Onc MED Follow-up/Prog Note Chief Complaint: Metastatic renal cell carcinoma History of Present Illness: Mr. 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, renal sinus vessels, perinephric adipose tissue, Gerota's fascia, and a single perinephric lymph node replaced by tumor and pathology stage was pT4, pN1, subsequently patient underwent follow-up and during follow-up CT scan of abdomen pelvis done on January 24, 2020 showed multiple enhancing soft tissue nodule on the left, adjacent to the spleen, left para-aortic., and abutting the hemidiaphragm and posterior abdominal wall., Patient underwent CT-guided biopsy of intra-abdominal lesion which confirmed recurrence of disease and systemic therapy with Opdivo/Yervoy was recommended and given every 3 weeks x 4 starting February 2020, completed on April 27, 2020,, follow-up CT scan of abdomen showed slight increase in size of several nodules but was considered and confirmed all possible pseudoprogression by immunotherapy subsequently started on biweekly Opdivo On May 18, 2020, Tolerating well except off and on hypokalemia treated with supplements.Patient received all those treatment at midnight [facility] oncology in [place], [place] Follow-up CT scan done on August 22, 2021 shows status post left nephrectomy, findings consistent with recurrent left renal metastatic disease. Numerous soft tissue implants are noted within left renal bed which extends into diaphragmatic crura and left psoas muscle. Additional metastatic implants invading the posterior spleen and adrenal gland. Omental implants along the anterior and left lateral abdominal/omental. Implant versus splenule at pancreatic tail. Nonspecific lytic lesion in the right femoral head. Irregular opacification medial left lower lobe may be an area of atelectasis. Mild pulmonary hypertension., Patient presents today for follow-up. He states he has been feeling well with no fatigue. No fever, chills, night sweats. His appetite has been good. No problems with GI or . No headaches or dizziness. He denies joint pain or muscle pain. He is continuing to have the chronic cough that started when he started Opdivo. It does seem to be getting worse and it is productive with a clear mucus. At times he loses his breath due to coughing. He thought it may have to do with his allergies but allergy medication does not seem to make a difference. Review Of Symptoms: See above. Past Medical History: Hyperlipidemia Hypertension Panic disorder Covid 19 in 2020 Past Surgical History: Covid 19 vaccine-Pfizer Hernia repair Left nephrectomy Vasectomy Allergies: No Known Allergies. Medications: Ezetimibe 1 Tablet (of 10 mg) Oral daily Losartan Potassium 1 Tablet (of 100 mg) Oral daily Potassium 1 Tablet (of 99 mg) Oral daily Sertraline HCl 1 Tablet (of 50 mg) Oral daily ZyrTEC Allergy 1 Tablet (of 10 mg) Oral daily Family History: There is no documented family history. Social History: Mr. Garcia is . Mr. Garcia has never smoked. He has no history of drinking. Physical Examination: Performed on Dec 10, 2021 11:26: Height - 69.00 in, BP - 165/69 mm(hg) (HIGH), Performed on Dec 10, 2021 11:25: Height - 69.00 in, Weight - 250.0 lbs (HIGH), BSA - 2.27 sq.m, BMI - 36.92 (HIGH), Temperature - 98.0 F (LOW), Pulse - 58 /min (LOW), Respiration - 20 /min, BP - 173/94 mm(hg) (HIGH), O2 Sat - 97 %, Pain - 0, and Fatigue - 8. Performance Status: 0 - Fully active, able to carry on all predisease activities without restrictions. (ECOG) Constitutional Alert, cooperative, oriented. Mood and affect appropriate. Appears close to chronological age. Well nourished. Well developed. Head Normocephalic; no scars. Eyes Conjunctivae and sclerae are clear and without icterus. Pupils are reactive and equal. Hematologic/Lymphatic No petechiae or purpura. No tender or palpable lymph nodes in the cervical, supraclavicular, axillary or inguinal area. Respiratory Lungs are clear to auscultation without rhonchi or wheezing. Cardiovascular Regular rate and rhythm of heart without murmurs, gallops or rubs. Abdomen Non-tender, non-distended, no masses, ascites or hepatosplenomegaly. Good bowel sounds. No guarding or rebound tenderness. Musculoskeletal No tenderness or swelling, normal range of motion without obvious weakness. Psychiatric Alert and oriented times three. Coherent speech. Verbalizes understanding of our discussions today. Laboratory: Test performed on Nov 26, 2021 09:20 Sodium 138 mmol/L TSH 1.32 uIU/mL Potassium 5.5 mmol/L Chloride 103 mmol/L CO2 26 mmol/L Anion Gap 14.5 BUN 17 mg/dL Creatinine 0.9 mg/dL Cr Clearance (Est) 125.05 mL/min eGFR 84.4 mL/min Glucose 117 mg/dL Osmolality - Calculated 289 mOsm/kg Calcium 9.4 mg/dL Protein, Total 7.6 g/dL Albumin 4.3 g/dL Globulin 3.3 g/dL Bilirubin, Total 0.6 mg/dL ALT (SGPT) 20 U/L AST (SGOT) 19 U/L Alkaline Phosphatase 94 IU/L Test performed on Nov 26, 2021 08:38 WBC 7.8 10 3/uL RBC 5.07 10 6/uL HGB 14.6 g/dL HCT 45.0 % MCV 88.8 fl MCH 28.8 pg MCHC 32.4 g/dL RDW 12.8 % Platelet Count 297 10 3/cmm MPV 11.0 fL Neutrophils 4.80 10 3/uL Lymphocytes 1.8 10 3/uL Monocytes 0.9 10 3/uL Eosinophils 0.2 10 3/uL Basophils 0.1 10 3/uL Neutrophil % 61.5 % Lymphocyte % 23.4 % Monocyte % 11.8 % Eosinophil % 2.3 % Basophils % 0.6 % NRBC % 0 % Test performed on Oct 22, 2021 13:17 Cortisol 9.12 mcg/dL Test performed on Sep 24, 2021 15:59 Cortisol (AM) 7.63 mcg/dL Manual Lymphocytes 30.1 % Manual Monocytes 10.0 % Manual Eosinophils 2.8 % Manual Basophils 0.7 % NRBCs 0 /100 WBC Impression: 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 And soft tissue metastasis abutting spleen. Largest implant on the left hemidiaphragm previously measured 2.5 x 2 cm now 3.7 x 2.5 cm. There is an adjacent implant that has increased in size. And implant slightly more lateral to the spleen however is slightly less bulky. Left adrenal metastasis is also slightly smaller. Overall small left periaortic node at the level of adrenal gland has increased from 8 mm to 12 mm. Right kidney normal appearance. Plan: We discussed Opdivo and common side effects including pneumonitis which may be contributing to the cough. We will hold treatment today and refer to pulmonology for further evaluation. We will plan for follow-up in 2 weeks with CBC and CMP and possibly resume Opdivo at that time. Signed By: Denae Lema, N.P. <<Signature on File>>
== END 2021-12-10 10:57 | disposition home or self-care (01) ==
PROVIDERS: PCP Internal Medicine; Visit Provider Nurse Practitioner Family
DX: C64.2 Malignant neoplasm of left kidney, except renal pelvis (principal); C79.89 Secondary malignant neoplasm of other specified sites; C78.89 Secondary malignant neoplasm of other digestive organs; C79.72 Secondary malignant neoplasm of left adrenal gland; E78.5 Hyperlipidemia, unspecified; I10 Essential (primary) hypertension; F41.0 Panic disorder [episodic paroxysmal anxiety]; Z79.899 Other long term (current) drug therapy; Z86.16 Personal history of COVID-19
CPT/HCPCS: 99214

== ENCOUNTER 2021-12-24 09:21 | Outpatient (CLI) | payer MEDICARE, OTHER, SELFPAY ==
[2021-12-24 10:16] LABS: Basophils % 0.7 %; Eosinophils # 0.2 10^3/uL (0.0-0.8); Eosinophils % 2.5 %; Hematocrit 46.6 % (42.0-52.0); Hemoglobin 15.2 g/dL (11.7-16.6); Lymphocytes # 1.7 10^3/uL (0.8-4.8); Lymphocytes % 27.7 %; Mean Corpuscular HGB Conc 32.6 g/dL (30.0-36.0); Mean Corpuscular Volume 88.9 fl (80-94); Mean Platelet Volume 9.7 fL (7.4-10.4); Monocytes # 0.6 10^3/uL (0.2-0.9); Monocytes % 9.9 %; Neutrophils % 58.9 %; Nucleated Red Blood Cells % 0 %; Platelet Count 236 10^3/cmm (130-400); Red Blood Count 5.24 10^6/uL (4.1-5.3); Red Cell Distribution Width 12.7 % (12.1-15.1)
[2021-12-24 10:40] LABS: Alanine Aminotransferase 18 U/L (0-41); Albumin Level 4.4 g/dL (3.5-5.2); Alkaline Phosphatase 88 IU/L (40-130); Aspartate Amino Transferase 19 U/L (0-40); Blood Urea Nitrogen 20 mg/dL (8-23); Calcium 9.7 mg/dL (8.5-10.5); Carbon Dioxide 24 mmol/L (22-29); Chloride 102 mmol/L (98-107); Globulin 3.3 g/dL (1.3-4.6); Glomerular Filtration Rate 74.8 mL/min (90-130); Glucose 131 mg/dL (65-115); Osmolality Calculated 288 mOsm/kg (285-295); Sodium 137 mmol/L (136-145); Total Bilirubin 0.5 mg/dL (0.15-1.2); Total Protein 7.7 g/dL (6.6-8.7)
[2021-12-24 10:41] LABS: Anion Gap 15.4 (5-19); Potassium 4.4 mmol/L (3.5-5.1)
[2021-12-24] MEDS: sodium chloride 0.9% 250 ML 600 ML IV (11:40)
--- NOTE | 2021-12-24 11:44 | ONC FU_ITS ---
Denae Lema Progress Note Patient: Junior Garcia Unit #: [id number]: 1955 Dicatated By: Denae Lema N.P.Date of Visit:Dec 24, 2021 Onc MED Follow-up/Prog Note Chief Complaint: Metastatic renal cell carcinoma History of Present Illness: Mr. 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, renal sinus vessels, perinephric adipose tissue, Gerota's fascia, and a single perinephric lymph node replaced by tumor and pathology stage was pT4, pN1, subsequently patient underwent follow-up and during follow-up CT scan of abdomen pelvis done on January 24, 2020 showed multiple enhancing soft tissue nodule on the left, adjacent to the spleen, left para-aortic., and abutting the hemidiaphragm and posterior abdominal wall., Patient underwent CT-guided biopsy of intra-abdominal lesion which confirmed recurrence of disease and systemic therapy with Opdivo/Yervoy was recommended and given every 3 weeks x 4 starting February 2020, completed on April 27, 2020,, follow-up CT scan of abdomen showed slight increase in size of several nodules but was considered and confirmed all possible pseudoprogression by immunotherapy subsequently started on biweekly Opdivo On May 18, 2020, Tolerating well except off and on hypokalemia treated with supplements.Patient received all those treatment at midnight [facility] oncology in [place], [place] Follow-up CT scan done on August 22, 2021 shows status post left nephrectomy, findings consistent with recurrent left renal metastatic disease. Numerous soft tissue implants are noted within left renal bed which extends into diaphragmatic crura and left psoas muscle. Additional metastatic implants invading the posterior spleen and adrenal gland. Omental implants along the anterior and left lateral abdominal/omental. Implant versus splenule at pancreatic tail. Nonspecific lytic lesion in the right femoral head. Irregular opacification medial left lower lobe may be an area of atelectasis. Mild pulmonary hypertension., Patient presents today for follow-up. He states he is feeling fine. No fatigue. His appetite is good. No fever, chills, night sweats. No sinus drainage or sore throat. No shortness of breath or wheezing. He does experience a cough with clear mucus that has been going on for several years especially since starting Opdivo he does have a referral into pulmonology and we are still awaiting appointment for that. He has been taking [id number] medications which do not seem to be making a difference. We held last dose of Opdivo but he did not see any change in symptoms. He denies GI or problems. No joint pain. No headaches or dizziness. Review Of Symptoms: See above. Past Medical History: Hyperlipidemia Hypertension Panic disorder Covid 19 in 2020 Past Surgical History: Covid 19 vaccine-Pfizer Hernia repair Left nephrectomy Vasectomy Allergies: No Known Allergies. Medications: Aspirin 1 Tablet (of 81 mg) Capsule Oral daily [place] Tablet Oral daily Echinacea Tablet Oral daily Ezetimibe 1 Tablet (of 10 mg) Oral daily Glucosamine Tablet Oral daily Losartan Potassium 1 Tablet (of 100 mg) Oral daily Potassium 1 Tablet (of 99 mg) Oral daily Sertraline HCl 1 Tablet (of 50 mg) Oral daily ZyrTEC Allergy 1 Tablet (of 10 mg) Oral daily Family History: There is no documented family history. Social History: Mr. Garcia is . Mr. Garcia has never smoked. He has no history of drinking. Physical Examination: Performed on Dec 24, 2021 10:52: Height - 69.00 in, Weight - 240.4 lbs (LOW), BSA - 2.23 sq.m, BMI - 35.50 (HIGH), Temperature - 98.0 F (LOW), Pulse - 43 /min (LOW), Respiration - 16 /min, BP - 167/76 mm(hg) (HIGH), O2 Sat - 93 % (LOW), Pain - 0, and Fatigue - 2. Performance Status: Perf. Status is not available for this patient. Constitutional Alert, cooperative, oriented. Mood and affect appropriate. Appears close to chronological age. Well nourished. Well developed. Head Normocephalic; no scars. Respiratory Lungs are clear to auscultation without rhonchi or wheezing. Cardiovascular Regular rate and rhythm of heart without murmurs, gallops or rubs. Abdomen Non-tender, non-distended, no masses, ascites or hepatosplenomegaly. Good bowel sounds. No guarding or rebound tenderness. Extremities no edema Psychiatric Alert and oriented times three. Coherent speech. Verbalizes understanding of our discussions today. Laboratory: Test performed on Dec 24, 2021 09:54 Sodium 137 mmol/L Potassium 4.4 mmol/L Chloride 102 mmol/L CO2 24 mmol/L Anion Gap 15.4 BUN 20 mg/dL Creatinine 1.0 mg/dL Cr Clearance (Est) 112.07 mL/min eGFR 74.8 mL/min Glucose 131 mg/dL Osmolality - Calculated 288 mOsm/kg Calcium 9.7 mg/dL Protein, Total 7.7 g/dL Albumin 4.4 g/dL Globulin 3.3 g/dL Bilirubin, Total 0.5 mg/dL ALT (SGPT) 18 U/L AST (SGOT) 19 U/L Alkaline Phosphatase 88 IU/L WBC 6.0 10 3/uL RBC 5.24 10 6/uL HGB 15.2 g/dL HCT 46.6 % MCV 88.9 fl MCH 29.0 pg MCHC 32.6 g/dL RDW 12.7 % Platelet Count 236 10 3/cmm MPV 9.7 fL Neutrophils 3.50 10 3/uL Lymphocytes 1.7 10 3/uL Monocytes 0.6 10 3/uL Eosinophils 0.2 10 3/uL Basophils 0.0 10 3/uL Neutrophil % 58.9 % Lymphocyte % 27.7 % Monocyte % 9.9 % Eosinophil % 2.5 % Basophils % 0.7 % NRBC % 0 % Test performed on Nov 26, 2021 09:20 TSH 1.32 uIU/mL Test performed on Oct 22, 2021 13:17 Cortisol 9.12 mcg/dL Test performed on Sep 24, 2021 15:59 Cortisol (AM) 7.63 mcg/dL Manual Lymphocytes 30.1 % Manual Monocytes 10.0 % Manual Eosinophils 2.8 % Manual Basophils 0.7 % NRBCs 0 /100 WBC Impression: 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 And soft tissue metastasis abutting spleen. Largest implant on the left hemidiaphragm previously measured 2.5 x 2 cm now 3.7 x 2.5 cm. There is an adjacent implant that has increased in size. And implant slightly more lateral to the spleen however is slightly less bulky. Left adrenal metastasis is also slightly smaller. Overall small left periaortic node at the level of adrenal gland has increased from 8 mm to 12 mm. Right kidney normal appearance. Plan: Labs were discussed with patient. CBC is within normal limits other than glucose being 131 CMP is within normal limits also. Opdivo was held last week due to an ongoing cough with clear mucus production that started when treatment with Opdivo started. Patient had stated that it seem to be getting worse and allergy medications did not seem to help relieve symptoms. Patient did not see a difference in symptoms with holding Opdivo so we will continue Opdivo this week. We will keep referral for pulmonology for further evaluation. Patient will return to the clinic in 2 weeks with CBC and CMP Signed By: Denae Lema N.Hannah. <<Signature on File>>
== END 2021-12-24 09:22 | disposition home or self-care (01) ==
PROVIDERS: PCP Internal Medicine; Visit Provider Nurse Practitioner Family
DX: Z51.12 Encounter for antineoplastic immunotherapy (principal); C64.9 Malignant neoplasm of unspecified kidney, except renal pelvis; C78.89 Secondary malignant neoplasm of other digestive organs; C79.72 Secondary malignant neoplasm of left adrenal gland; I10 Essential (primary) hypertension; F41.0 Panic disorder [episodic paroxysmal anxiety]; E78.5 Hyperlipidemia, unspecified; Z79.899 Other long term (current) drug therapy
CPT/HCPCS: 80053; 85025; 96413; 99215; J7050; J9299

== ENCOUNTER 2022-01-07 09:01 | Outpatient (CLI) | payer MEDICARE, OTHER, SELFPAY ==
[2022-01-07 09:54] LABS: Basophils % 0.7 %; Eosinophils # 0.2 10^3/uL (0.0-0.8); Eosinophils % 2.6 %; Hemoglobin 14.6 g/dL (11.7-16.6); Lymphocytes # 1.5 10^3/uL (0.8-4.8); Lymphocytes % 23.9 %; Mean Corpuscular HGB Conc 31.7 g/dL (30.0-36.0); Mean Corpuscular Hemoglobin 28.6 pg (28.0-34.0); Mean Platelet Volume 9.7 fL (7.4-10.4); Monocytes # 0.6 10^3/uL (0.2-0.9); Neutrophils % 62.3 %; Nucleated Red Blood Cells % 0 %; Platelet Count 227 10^3/cmm (130-400); Red Blood Count 5.11 10^6/uL (4.1-5.3); Red Cell Distribution Width 12.6 % (12.1-15.1); White Blood Count 6.1 10^3/uL (4.0-10.0)
[2022-01-07 10:21] LABS: Alanine Aminotransferase 20 U/L (0-41); Albumin Level 4.1 g/dL (3.5-5.2); Alkaline Phosphatase 85 IU/L (40-130); Anion Gap 14.2 (5-19); Aspartate Amino Transferase 17 U/L (0-40); Blood Urea Nitrogen 20 mg/dL (8-23); Calcium 9.2 mg/dL (8.5-10.5); Carbon Dioxide 23 mmol/L (22-29); Chloride 106 mmol/L (98-107); Globulin 2.3 g/dL (1.3-4.6); Glucose 117 mg/dL (65-115); Osmolality Calculated 292 mOsm/kg (285-295); Potassium 4.2 mmol/L (3.5-5.1); Sodium 139 mmol/L (136-145); Total Bilirubin 0.5 mg/dL (0.15-1.2); Total Protein 6.4 g/dL (6.6-8.7)
--- NOTE | 2022-01-11 09:03 | ONC FU_ITS ---
Dr. Canseco follow up note Patient: Junior Garcia Unit #: [id number]: 1955 Dicatated By: Soren Canseco M.D.Date of Visit:Jan 07, 2022 Onc Med Follow-up/Prog Note History of Present Illness: Mr. 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, renal sinus vessels, perinephric adipose tissue, Gerota's fascia, and a single perinephric lymph node replaced by tumor and pathology stage was pT4, pN1, subsequently patient underwent follow-up and during follow-up CT scan of abdomen pelvis done on January 24, 2020 showed multiple enhancing soft tissue nodule on the left, adjacent to the spleen, left para-aortic., and abutting the hemidiaphragm and posterior abdominal wall., Patient underwent CT-guided biopsy of intra-abdominal lesion which confirmed recurrence of disease and systemic therapy with Opdivo/Yervoy was recommended and given every 3 weeks x 4 starting February 2020, completed on April 27, 2020,, follow-up CT scan of abdomen showed slight increase in size of several nodules but was considered and confirmed all possible pseudoprogression by immunotherapy subsequently started on biweekly Opdivo On May 18, 2020, Tolerating well except off and on hypokalemia treated with supplements.Patient received all those treatment at midnight [facility] oncology in [place], [place] Follow-up CT scan done on August 22, 2021 shows status post left nephrectomy, findings consistent with recurrent left renal metastatic disease. Numerous soft tissue implants are noted within left renal bed which extends into diaphragmatic crura and left psoas muscle. Additional metastatic implants invading the posterior spleen and adrenal gland. Omental implants along the anterior and left lateral abdominal/omental. Implant versus splenule at pancreatic tail. Nonspecific lytic lesion in the right femoral head. Irregular opacification medial left lower lobe may be an area of atelectasis. Mild pulmonary hypertension., Came for follow-up, denies any specific complaint except progressive dyspnea on exertion, as per patient he has chronic problem but recently is progressive and even mild exertion will give him shortness of breath and now scheduled see Dr. Bruno on December 23, 2021. Denies any skin rash, denies any diarrhea or hematochezia, denies any jaundice denies any chest pain or palpitation. Patient has history of anxiety and stress disorder, as per patient in the past he tried low-dose Zoloft with some help and also taking Xanax for anxiety. Patient has history of sleep apnea but not using CPAP because of claustrophobia. Otherwise tolerating nivolumab well Medications: Aspirin 1 Tablet (of 81 mg) Capsule Oral daily, [place] Tablet Oral daily, Echinacea Tablet Oral daily, Ezetimibe 1 Tablet (of 10 mg) Oral daily, Glucosamine Tablet Oral daily, Losartan Potassium 1 Tablet (of 100 mg) Oral daily, Potassium 1 Tablet (of 99 mg) Oral daily, Sertraline HCl 1 Tablet (of 50 mg) Oral daily, ZyrTEC Allergy 1 Tablet (of 10 mg) Oral daily Allergies: No Known Allergies. Review of Systems: Review of Systems is not available for this patient. Vital Signs: Performed on Jan 07, 2022 11:02 Height - 69.00 in Weight - 244.0 lbs (HIGH) BSA - 2.25 sq.m BMI - 36.03 (HIGH) Temperature - 98.6 F Pulse - 49 /min (LOW) Respiration - 15 /min BP - 144/83 mm(hg) (HIGH) O2 Sat - 95 % (LOW) Pain - 0 Fatigue - 8 Performance Status: 0 - Fully active, able to carry on all predisease activities without restrictions. (ECOG) Physical Examination: ENMT - No mouth sores, no thrush, no jaundice, Respiratory - Poor air entry otherwise clear, Cardiovascular - Regular rate and rhythm of heart, Abdomen - Soft, bowel sounds present, Extremities - No visible edema or rash. Lab/Imaging: Test performed on Dec 24, 2021 09:54 Sodium 137 mmol/L Potassium 4.4 mmol/L Chloride 102 mmol/L CO2 24 mmol/L Anion Gap 15.4 BUN 20 mg/dL Creatinine 1.0 mg/dL Cr Clearance (Est) 112.07 mL/min eGFR 74.8 mL/min Glucose 131 mg/dL Osmolality - Calculated 288 mOsm/kg Calcium 9.7 mg/dL Protein, Total 7.7 g/dL Albumin 4.4 g/dL Globulin 3.3 g/dL Bilirubin, Total 0.5 mg/dL ALT (SGPT) 18 U/L AST (SGOT) 19 U/L Alkaline Phosphatase 88 IU/L WBC 6.0 10 3/uL RBC 5.24 10 6/uL HGB 15.2 g/dL HCT 46.6 % MCV 88.9 fl MCH 29.0 pg MCHC 32.6 g/dL RDW 12.7 % Platelet Count 236 10 3/cmm MPV 9.7 fL Neutrophils 3.50 10 3/uL Lymphocytes 1.7 10 3/uL Monocytes 0.6 10 3/uL Eosinophils 0.2 10 3/uL Basophils 0.0 10 3/uL Neutrophil % 58.9 % Lymphocyte % 27.7 % Monocyte % 9.9 % Eosinophil % 2.5 % Basophils % 0.7 % NRBC % 0 % Test performed on Nov 26, 2021 09:20 TSH 1.32 uIU/mL Test performed on Oct 22, 2021 13:17 Cortisol 9.12 mcg/dL Test performed on Sep 24, 2021 15:59 Cortisol (AM) 7.63 mcg/dL Manual Lymphocytes 30.1 % Manual Monocytes 10.0 % Manual Eosinophils 2.8 % Manual Basophils 0.7 % NRBCs 0 /100 WBC Impression: 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 And soft tissue metastasis abutting spleen. Largest implant on the left hemidiaphragm previously measured 2.5 x 2 cm now 3.7 x 2.5 cm. There is an adjacent implant that has increased in size. And implant slightly more lateral to the spleen however is slightly less bulky. Left adrenal metastasis is also slightly smaller. Overall small left periaortic node at the level of adrenal gland has increased from 8 mm to 12 mm. Right kidney normal appearance. Plan: Discussed with patient regarding his labs white blood count 6.1 hemoglobin 14.6 hematocrit 46 platelets 227,000 CMP within normal limits Clinically, patient doing reasonably well with no new signs symptom except progressive dyspnea on exertion, etiology is unclear could be underlying pulmonary disorder like COPD or emphysema or other possibility could be cardiac or immunotherapy induced pneumonitis but less likely. At this point, we will hold his immunotherapy until pulmonary evaluation is done, if immunotherapy induced pneumonitis is ruled out then will resume his treatment patient will return to clinic in 3 weeks with CBC CMP, hopefully by that time he will have seen pulmonology. Signed By: Soren Canseco M.D. <<Signature on File>>
== END 2022-01-07 09:02 | disposition home or self-care (01) ==
PROVIDERS: PCP Internal Medicine; Visit Provider Internal Medicine Hematology & Oncology
DX: C64.2 Malignant neoplasm of left kidney, except renal pelvis (principal); C77.8 Secondary and unspecified malignant neoplasm of lymph nodes of multiple regions; C79.72 Secondary malignant neoplasm of left adrenal gland; C79.89 Secondary malignant neoplasm of other specified sites; R06.00 Dyspnea, unspecified; Z79.899 Other long term (current) drug therapy
CPT/HCPCS: 36415; 80053; 85025; 99215

== ENCOUNTER → 2022-01-23 12:44 | Outpatient (BNVA) | payer MEDICARE, OTHER, SELFPAY | PROVIDERS: PCP Internal Medicine; Visit Provider Internal Medicine Critical Care Medicine | DX: R05.3 Chronic cough (principal); C64.9 Malignant neoplasm of unspecified kidney, except renal pelvis; R06.02 Shortness of breath | CPT/HCPCS: 71046; 99204 ==

== ENCOUNTER 2022-01-28 08:49 | Outpatient (CLI) | payer MEDICARE, OTHER, SELFPAY ==
[2022-01-28 09:16] LABS: Basophils % 0.5 %; Eosinophils # 0.1 10^3/uL (0.0-0.8); Eosinophils % 2.1 %; Hemoglobin 14.6 g/dL (11.7-16.6); Lymphocytes # 1.4 10^3/uL (0.8-4.8); Lymphocytes % 25.2 %; Mean Corpuscular HGB Conc 31.7 g/dL (30.0-36.0); Mean Corpuscular Hemoglobin 28.5 pg (28.0-34.0); Mean Corpuscular Volume 89.8 fl (80-94); Mean Platelet Volume 9.7 fL (7.4-10.4); Monocytes # 0.5 10^3/uL (0.2-0.9); Neutrophils # 3.58 10^3/uL (1.8-7.7); Neutrophils % 63.7 %; Nucleated Red Blood Cells % 0 %; Platelet Count 217 10^3/cmm (130-400); Red Blood Count 5.12 10^6/uL (4.1-5.3); Red Cell Distribution Width 12.3 % (12.1-15.1); White Blood Count 5.6 10^3/uL (4.0-10.0)
[2022-01-28 09:38] LABS: Alanine Aminotransferase 26 U/L (0-41); Albumin Level 4.2 g/dL (3.5-5.2); Alkaline Phosphatase 88 IU/L (40-130); Blood Urea Nitrogen 18 mg/dL (8-23); Calcium 8.8 mg/dL (8.5-10.5); Carbon Dioxide 25 mmol/L (22-29); Chloride 97 mmol/L (98-107); Globulin 3.4 g/dL (1.3-4.6); Glomerular Filtration Rate 74.8 mL/min (90-130); Glucose 184 mg/dL (65-115); Osmolality Calculated 285 mOsm/kg (285-295); Sodium 134 mmol/L (136-145); Total Bilirubin 0.7 mg/dL (0.15-1.2); Total Protein 7.6 g/dL (6.6-8.7)
[2022-01-28 09:42] LABS: Anion Gap 16.8 (5-19); Aspartate Amino Transferase 25 U/L (0-40); Potassium 4.8 mmol/L (3.5-5.1)
--- NOTE | 2022-01-30 10:45 | ONC FU_ITS ---
Dr. Canseco follow up note Patient: Junior Garcia Unit #: [id number]: [id number] Dicatated By: Soren Canseco M.D.Date of Visit:Jan 28, 2022 Onc Med Follow-up/Prog Note History of Present Illness: Mr. 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, renal sinus vessels, perinephric adipose tissue, Gerota's fascia, and a single perinephric lymph node replaced by tumor and pathology stage was pT4, pN1, subsequently patient underwent follow-up and during follow-up CT scan of abdomen pelvis done on January 24, 2020 showed multiple enhancing soft tissue nodule on the left, adjacent to the spleen, left para-aortic., and abutting the hemidiaphragm and posterior abdominal wall., Patient underwent CT-guided biopsy of intra-abdominal lesion which confirmed recurrence of disease and systemic therapy with Opdivo/Yervoy was recommended and given every 3 weeks x 4 starting February 2020, completed on April 27, 2020,, follow-up CT scan of abdomen showed slight increase in size of several nodules but was considered and confirmed all possible pseudoprogression by immunotherapy subsequently started on biweekly Opdivo On May 18, 2020, Tolerating well except off and on hypokalemia treated with supplements.Patient received all those treatment at midnight [facility] oncology in [place], [place] Follow-up CT scan done on August 22, 2021 shows status post left nephrectomy, findings consistent with recurrent left renal metastatic disease. Numerous soft tissue implants are noted within left renal bed which extends into diaphragmatic crura and left psoas muscle. Additional metastatic implants invading the posterior spleen and adrenal gland. Omental implants along the anterior and left lateral abdominal/omental. Implant versus splenule at pancreatic tail. Nonspecific lytic lesion in the right femoral head. Irregular opacification medial left lower lobe may be an area of atelectasis. Mild pulmonary hypertension.,. 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 Bruno on January 31, 2022, chest x-ray was done on same date which shows lungs are fully inflated and clear heart is slightly enlarged no pleural effusion, no bony abnormality. Further work-up including PFTs and possible CT scan of chest is pending Came for follow-up, denies any specific complaints, no fever chills, no nausea or vomiting, no diarrhea or constipation, no skin rash or jaundice, no diarrhea or constipation, no hemoptysis hematemesis but dyspnea exertion which is improving, patient is pleased with pulmonology evaluation, patient said he is awaiting Flonase nasal spray arrival in the mail. And also trying to lose weight by watching diet and being more active physically. Medications: Aspirin 1 Tablet (of 81 mg) Capsule Oral daily, [place] Tablet Oral daily, Echinacea Tablet Oral daily, Ezetimibe 1 Tablet (of 10 mg) Oral daily, Glucosamine Tablet Oral daily, Losartan Potassium 1 Tablet (of 100 mg) Oral daily, Potassium 1 Tablet (of 99 mg) Oral daily, Sertraline HCl 1 Tablet (of 50 mg) Oral daily, ZyrTEC Allergy 1 Tablet (of 10 mg) Oral daily Allergies: No Known Allergies. Review of Systems: Review of Systems is not available for this patient. Vital Signs: Performed on Jan 28, 2022 11:06 Height - 69.00 in Weight - 244.8 lbs (HIGH) BSA - 2.25 sq.m BMI - 36.15 (HIGH) Temperature - 97.7 F (LOW) Pulse - 72 /min Respiration - 18 /min BP - 138/89 mm(hg) O2 Sat - 95 % (LOW) Pain - 0 Fatigue - 7 Performance Status: 0 - Fully active, able to carry on all predisease activities without restrictions. (ECOG) Physical Examination: ENMT - No mouth sores, no thrush, no jaundice, Respiratory - Poor air entry, mild wheezing, Cardiovascular - Regular rate and rhythm of heart, Abdomen - Soft, bowel sounds present, Extremities - No visible edema. Lab/Imaging: Test performed on Dec 24, 2021 09:54 Sodium 137 mmol/L Potassium 4.4 mmol/L Chloride 102 mmol/L CO2 24 mmol/L Anion Gap 15.4 BUN 20 mg/dL Creatinine 1.0 mg/dL Cr Clearance (Est) 112.07 mL/min eGFR 74.8 mL/min Glucose 131 mg/dL Osmolality - Calculated 288 mOsm/kg Calcium 9.7 mg/dL Protein, Total 7.7 g/dL Albumin 4.4 g/dL Globulin 3.3 g/dL Bilirubin, Total 0.5 mg/dL ALT (SGPT) 18 U/L AST (SGOT) 19 U/L Alkaline Phosphatase 88 IU/L WBC 6.0 10 3/uL RBC 5.24 10 6/uL HGB 15.2 g/dL HCT 46.6 % MCV 88.9 fl MCH 29.0 pg MCHC 32.6 g/dL RDW 12.7 % Platelet Count 236 10 3/cmm MPV 9.7 fL Neutrophils 3.50 10 3/uL Lymphocytes 1.7 10 3/uL Monocytes 0.6 10 3/uL Eosinophils 0.2 10 3/uL Basophils 0.0 10 3/uL Neutrophil % 58.9 % Lymphocyte % 27.7 % Monocyte % 9.9 % Eosinophil % 2.5 % Basophils % 0.7 % NRBC % 0 % Test performed on Nov 26, 2021 09:20 TSH 1.32 uIU/mL Test performed on Oct 22, 2021 13:17 Cortisol 9.12 mcg/dL Test performed on Sep 24, 2021 15:59 Cortisol (AM) 7.63 mcg/dL Manual Lymphocytes 30.1 % Manual Monocytes 10.0 % Manual Eosinophils 2.8 % Manual Basophils 0.7 % NRBCs 0 /100 WBC Impression: 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 And soft tissue metastasis abutting spleen. Largest implant on the left hemidiaphragm previously measured 2.5 x 2 cm now 3.7 x 2.5 cm. There is an adjacent implant that has increased in size. And implant slightly more lateral to the spleen however is slightly less bulky. Left adrenal metastasis is also slightly smaller. Overall small left periaortic node at the level of adrenal gland has increased from 8 mm to 12 mm. Right kidney normal appearance. Plan: Discussed with patient regarding his labs white blood count 5.6 hemoglobin of 14.6 hematocrit 46 platelets 217,000 CMP within normal limit except sodium 134 Clinically, patient doing well with no new signs symptoms suggestive of recurrence of disease, his immunotherapy is on hold since December 24, 2021 because of progressive dyspnea on exertion and chronic cough and concerned about immunotherapy related pneumonitis for which she was referred to pulmonology and he was seen on January 23, 2022, patient underwent chest x-ray same day which showed no acute pulmonary findings, case was discussed with Dr. Bruno, flight communications operator, this morning, and he said he is awaiting for PFTs and then CT scan of chest to rule out pneumonitis and also suggested to continue to hold immunotherapy until work-up for pneumonitis is completed. So we will continue to hold his immunotherapy and patient will return to 2 weeks, hopefully by that time he will have his PFT and CT scan chest done and evaluation for pneumonitis will be completed. Signed By: Soren Canseco M.D. <<Signature on File>>
== END 2022-01-28 08:50 | disposition home or self-care (01) ==
PROVIDERS: PCP Internal Medicine; Visit Provider Internal Medicine Hematology & Oncology
DX: C64.2 Malignant neoplasm of left kidney, except renal pelvis (principal); R06.09 Other forms of dyspnea; R05.3 Chronic cough
CPT/HCPCS: 36415; 80053; 85025; 99215

== ENCOUNTER 2022-02-26 08:00 | Oncology outpatient (recurring) (ONCR) | payer MEDICARE, OTHER, SELFPAY ==
[2022-02-12 11:25] LABS: Basophils % 0.6 %; Eosinophils # 0.1 10^3/uL (0.0-0.8); Eosinophils % 2.5 %; Hematocrit 48.2 % (42.0-52.0); Hemoglobin 15.4 g/dL (11.7-16.6); Lymphocytes # 1.5 10^3/uL (0.8-4.8); Lymphocytes % 29.4 %; Mean Corpuscular Hemoglobin 28.6 pg (28.0-34.0); Mean Corpuscular Volume 89.6 fl (80-94); Mean Platelet Volume 9.5 fL (7.4-10.4); Monocytes # 0.5 10^3/uL (0.2-0.9); Monocytes % 9.7 %; Neutrophils # 3.02 10^3/uL (1.8-7.7); Neutrophils % 57.6 %; Nucleated Red Blood Cells % 0 %; Platelet Count 212 10^3/cmm (130-400); Red Blood Count 5.38 10^6/uL (4.1-5.3); Red Cell Distribution Width 13.1 % (12.1-15.1); White Blood Count 5.2 10^3/uL (4.0-10.0)
[2022-02-12 15:18] VITALS: BMI 35.4
[2022-02-12] MEDS: sodium chloride 0.9% 250 ML 75 ML IV (15:52)
[2022-02-12] MEDS: nivolumab 240 MG in sodium chloride 0.9% 250 ML 548 MG IV (15:53)
[2022-02-12 16:40] VITALS: BP 136/72; PULSE 50; RESP 18; TEMP 36.4; O2SAT 99
[2022-02-26] MEDS: sodium chloride 0.9% 250 ML 75 ML IV (10:19)
[2022-02-26] MEDS: nivolumab 240 MG in sodium chloride 0.9% 250 ML 548 MG IV (10:21)
[2022-02-26 11:16] VITALS: BP 123/82; PULSE 58; TEMP 37; O2SAT 98
--- NOTE | 2022-02-26 11:19 | PC.NURSE ---
22g IV catheter placed to pts R AC
== END 2022-03-05 23:59 | disposition home or self-care (01) ==
PROVIDERS: PCP Internal Medicine; Visit Provider Internal Medicine Hematology & Oncology
DX: C64.2 Malignant neoplasm of left kidney, except renal pelvis (principal); C79.89 Secondary malignant neoplasm of other specified sites; I10 Essential (primary) hypertension; Z87.891 Personal history of nicotine dependence
CPT/HCPCS: 36415; 80053; 84443; 85025; 96413; 99214; 99999; J7050; J9299

== ENCOUNTER → 2022-03-06 09:57 | Outpatient (BNVA) | payer MEDICARE, OTHER, SELFPAY | PROVIDERS: PCP Internal Medicine; Visit Provider Internal Medicine Critical Care Medicine | DX: R05.3 Chronic cough (principal); R06.02 Shortness of breath; C64.9 Malignant neoplasm of unspecified kidney, except renal pelvis | CPT/HCPCS: 94010; 94726; 94729; 99214 ==

== ENCOUNTER 2022-03-06 10:55 | Outpatient (CLI) | payer MEDICARE, OTHER, SELFPAY ==
--- NOTE | 2022-03-06 12:39 | PFTS_ITS ---
Date of Study:03/06/22 Date of Dictation: 03/08/2022 MECHANICS: Prebronchodilator forced vital capacity (FVC) is reduced. Prebronchodilator forced expiratory volume in one second (FEV1) is reduced. FEV1/FVC is normal. There is no postbronchodilator study FLOW VOLUME LOOP: Normal LUNG VOLUMES: Total lung capacity (TLC) is mildly reduced. Residual volume (RV) is normal. DIFFUSING CAPACITY FOR CARBON MONOXIDE: Normal . INTERPRETATION: The spirometry shows restrictive pattern. Postbronchodilator study not performed. Flow volume loop is normal. Lung volumes suggestive of mild restriction. Gas transfer is normal. Clinical correlation recommended. MTDD
== END 2022-03-06 10:56 | disposition home or self-care (01) ==
LOC: RT 10:57
PROVIDERS: PCP Internal Medicine; Visit Provider Internal Medicine Critical Care Medicine
DX: R06.02 Shortness of breath (principal)
CPT/HCPCS: 94010; 94726; 94729

== ENCOUNTER 2022-03-28 08:00 | Oncology outpatient (recurring) (ONCR) | payer MEDICARE, OTHER, SELFPAY ==
--- NOTE | 2022-03-11 08:35 | CT_ITS ---
WS: [id number] CT CHEST AND ABDOMEN TECHNIQUE: Contrast-enhanced CT of the chest and abdomen with coronal and sagittal reformatted images . CLINICAL INFORMATION: MALGINANT NEOPLASM OF L KIDNEY,EXCEPT RENAL PELVIS COMPARISON: CT 03/11/2022 and 08/22/2021 DLP: 1378.[address] scans at [facility] use at least one of these dose optimization techniques: automated e xposure control; mA and/or kV adjustment per patient size (includes targeted exams where dose is matc hed to clinical indication); or iterative reconstruction. CT CHEST: Both lungs are well aerated. No focal consolidation pleural fluid. Small hazy subpleural opacities in the RIGHT lower lobe are new from previous measuring 8 mm and 7.5 mm respectively nonspecific but mariee spicious for metastatic disease. Recommend [address] follow-up. Normal caliber thoracic aorta. Proximal main pulmonary arteries are normal. No mediastinal or hilar l ymphadenopathy. No axillary lymphadenopathy. Normal GE junction. CT ABDOMEN: Prior postoperative LEFT nephrectomy. Again seen are multiple enhancing soft tissue nodules involving the LEFT renal nephrectomy bed and LEFT adrenal gland slightly progressed compared to previous with increased soft tissue prominence in this area No other evidence of progressed disease in the abdomen. Remainder of the previously described areas h ave improved. Metastatic disease along the LEFT psoas with nodularity have improved. In addition, nod ular soft tissue components involve the LEFT diaphragmatic pleura with nodular soft tissue thickening have improved. This extends laterally about the spleen with involvement of the lateral aspect of the spleen extending into the parenchyma has improved. Additional punctate metastatic nodules involving the anterior omentum and lateral splenic omentum has improved. CT/CT chest abdomen w con* IMPRESSION: 1. 2 new small hazy subpleural opacities in RIGHT lower lobe measuring 7-8 mm are new from previous. These are nonspecific and metastatic disease not exclude d. Recommend [address] follow-up. 2. Prior postoperative LEFT nephrectomy. 3. Local recurrence involving the LEFT nephrectomy bed and LEFT adrenal gland appears slightly progressed compared to previous with increased soft tissue in this area. 4. Remainder of the metastatic nodularity involving the LEFT diaphragmatic fis sure, lateral spleen, and omentum appears improved compared to previous. 5. Previously described lytic lesion in the RIGHT femoral head neck junction n ot included on this examination.
[2022-03-11] MEDS: iohexol 300 mg/mL 100 mL Btl IV (10:16)
[2022-03-12 09:36] LABS: Basophils % 0.4 %; Eosinophils # 0.1 10^3/uL (0.0-0.8); Eosinophils % 1.5 %; Hematocrit 47.7 % (42.0-52.0); Hemoglobin 15.3 g/dL (11.7-16.6); Lymphocytes # 1.9 10^3/uL (0.8-4.8); Lymphocytes % 25.9 %; Mean Corpuscular HGB Conc 32.1 g/dL (30.0-36.0); Mean Corpuscular Hemoglobin 28.8 pg (28.0-34.0); Mean Corpuscular Volume 89.8 fl (80-94); Mean Platelet Volume 9.7 fL (7.4-10.4); Monocytes # 0.8 10^3/uL (0.2-0.9); Monocytes % 11.1 %; Neutrophils # 4.33 10^3/uL (1.8-7.7); Neutrophils % 60.8 %; Nucleated Red Blood Cells % 0 %; Platelet Count 221 10^3/cmm (130-400); Red Blood Count 5.31 10^6/uL (4.1-5.3); Red Cell Distribution Width 13.2 % (12.1-15.1); White Blood Count 7.1 10^3/uL (4.0-10.0)
[2022-03-12 10:14] LABS: Alanine Aminotransferase 23 U/L (0-41); Albumin Level 4.2 g/dL (3.5-5.2); Alkaline Phosphatase 80 IU/L (40-130); Anion Gap 12.7 (5-19); Aspartate Amino Transferase 16 U/L (0-40); Blood Urea Nitrogen 18 mg/dL (8-23); Calcium 9.3 mg/dL (8.5-10.5); Carbon Dioxide 27 mmol/L (22-29); Chloride 103 mmol/L (98-107); Globulin 2.7 g/dL (1.3-4.6); Glomerular Filtration Rate 84.4 mL/min (90-130); Glucose 90 mg/dL (65-115); Osmolality Calculated 287 mOsm/kg (285-295); Potassium 4.7 mmol/L (3.5-5.1); Sodium 138 mmol/L (136-145); Thyroid Stimulating Hormone 1.49 uIU/mL (0.27-4.20); Total Bilirubin 0.4 mg/dL (0.15-1.2); Total Protein 6.9 g/dL (6.6-8.7)
[2022-03-12] MEDS: nivolumab 240 MG in sodium chloride 0.9% 250 ML 548 MG IV (11:32)
[2022-03-28 08:38] LABS: Basophils % 0.7 %; Eosinophils # 0.1 10^3/uL (0.0-0.8); Eosinophils % 2.4 %; Hematocrit 45.7 % (42.0-52.0); Lymphocytes # 1.6 10^3/uL (0.8-4.8); Lymphocytes % 26.8 %; Mean Corpuscular HGB Conc 32.8 g/dL (30.0-36.0); Mean Corpuscular Hemoglobin 28.1 pg (28.0-34.0); Mean Corpuscular Volume 85.7 fl (80-94); Monocytes # 0.5 10^3/uL (0.2-0.9); Monocytes % 9.2 %; Neutrophils # 3.57 10^3/uL (1.8-7.7); Neutrophils % 60.6 %; Nucleated Red Blood Cells % 0 %; Platelet Count 218 10^3/cmm (130-400); Red Blood Count 5.33 10^6/uL (4.1-5.3); Red Cell Distribution Width 13.1 % (12.1-15.1); White Blood Count 5.9 10^3/uL (4.0-10.0)
[2022-03-28 08:56] LABS: Alanine Aminotransferase 22 U/L (0-41); Albumin Level 4.3 g/dL (3.5-5.2); Alkaline Phosphatase 69 IU/L (40-130); Anion Gap 15.7 (5-19); Aspartate Amino Transferase 19 U/L (0-40); Blood Urea Nitrogen 14 mg/dL (8-23); Calcium 9.3 mg/dL (8.5-10.5); Carbon Dioxide 25 mmol/L (22-29); Chloride 99 mmol/L (98-107); Globulin 2.8 g/dL (1.3-4.6); Glomerular Filtration Rate 74.8 mL/min (90-130); Glucose 155 mg/dL (65-115); Osmolality Calculated 284 mOsm/kg (285-295); Potassium 4.7 mmol/L (3.5-5.1); Sodium 135 mmol/L (136-145); Total Bilirubin 0.6 mg/dL (0.15-1.2); Total Protein 7.1 g/dL (6.6-8.7)
[2022-03-28] MEDS: nivolumab 240 MG in sodium chloride 0.9% 250 ML 548 MG IV (10:19)
[2022-03-28] MEDS: sodium chloride 0.9% 250 ML 75 ML IV (10:22)
== END 2022-04-04 23:59 | disposition home or self-care (01) ==
PROVIDERS: PCP Internal Medicine; Visit Provider Internal Medicine Hematology & Oncology
DX: Z51.11 Encounter for antineoplastic chemotherapy (principal); C64.2 Malignant neoplasm of left kidney, except renal pelvis; C79.89 Secondary malignant neoplasm of other specified sites; I10 Essential (primary) hypertension; Z87.891 Personal history of nicotine dependence
CPT/HCPCS: 71260; 74160; 80053; 84443; 85025; 96413; 99214; J7050; J9299

== ENCOUNTER 2022-04-25 08:00 | Oncology outpatient (recurring) (ONCR) | payer MEDICARE, OTHER, SELFPAY ==
[2022-04-11 09:10] LABS: Basophils % 0.7 %; Eosinophils # 0.1 10^3/uL (0.0-0.8); Hematocrit 46.2 % (42.0-52.0); Hemoglobin 15.1 g/dL (11.7-16.6); Lymphocytes # 1.6 10^3/uL (0.8-4.8); Lymphocytes % 28.3 %; Mean Corpuscular HGB Conc 32.7 g/dL (30.0-36.0); Mean Corpuscular Hemoglobin 28.9 pg (28.0-34.0); Mean Corpuscular Volume 88.5 fl (80-94); Mean Platelet Volume 9.9 fL (7.4-10.4); Monocytes # 0.7 10^3/uL (0.2-0.9); Monocytes % 11.9 %; Neutrophils # 3.14 10^3/uL (1.8-7.7); Neutrophils % 56.7 %; Nucleated Red Blood Cells % 0 %; Platelet Count 202 10^3/cmm (130-400); Red Blood Count 5.22 10^6/uL (4.1-5.3); Red Cell Distribution Width 13.1 % (12.1-15.1); White Blood Count 5.5 10^3/uL (4.0-10.0)
[2022-04-11 09:28] VITALS: BMI 35.3
[2022-04-11 09:38] LABS: Alanine Aminotransferase 18 U/L (0-41); Albumin Level 4.2 g/dL (3.5-5.2); Alkaline Phosphatase 65 IU/L (40-130); Anion Gap 15.8 (5-19); Aspartate Amino Transferase 17 U/L (0-40); Blood Urea Nitrogen 18 mg/dL (8-23); Calcium 9.3 mg/dL (8.5-10.5); Carbon Dioxide 24 mmol/L (22-29); Chloride 103 mmol/L (98-107); Globulin 2.6 g/dL (1.3-4.6); Glomerular Filtration Rate 74.8 mL/min (90-130); Glucose 128 mg/dL (65-115); Osmolality Calculated 290 mOsm/kg (285-295); Potassium 4.8 mmol/L (3.5-5.1); Sodium 138 mmol/L (136-145); Thyroid Stimulating Hormone 1.44 uIU/mL (0.27-4.20); Total Bilirubin 0.4 mg/dL (0.15-1.2); Total Protein 6.8 g/dL (6.6-8.7)
[2022-04-11 13:03] VITALS: BP 134/77; PULSE 77; RESP 18; TEMP 36.5; O2SAT 99
[2022-04-25 08:37] LABS: Basophils % 0.3 %; Eosinophils # 0.1 10^3/uL (0.0-0.8); Eosinophils % 1.9 %; Hematocrit 46.4 % (42.0-52.0); Hemoglobin 14.9 g/dL (11.7-16.6); Lymphocytes # 1.6 10^3/uL (0.8-4.8); Lymphocytes % 26.4 %; Mean Corpuscular HGB Conc 32.1 g/dL (30.0-36.0); Mean Corpuscular Hemoglobin 28.3 pg (28.0-34.0); Mean Platelet Volume 10.2 fL (7.4-10.4); Monocytes # 0.6 10^3/uL (0.2-0.9); Monocytes % 9.3 %; Neutrophils # 3.83 10^3/uL (1.8-7.7); Neutrophils % 61.8 %; Nucleated Red Blood Cells % 0 %; Platelet Count 208 10^3/cmm (130-400); Red Blood Count 5.27 10^6/uL (4.1-5.3); Red Cell Distribution Width 13.1 % (12.1-15.1); White Blood Count 6.2 10^3/uL (4.0-10.0)
[2022-04-25] MEDS: sodium chloride 0.9% 250 ML 100 ML IV (09:39)
[2022-04-25 10:54] VITALS: BP 152/93; PULSE 59; TEMP 36.8; O2SAT 97
== END 2022-05-05 23:59 | disposition home or self-care (01) ==
PROVIDERS: PCP Internal Medicine; Visit Provider Internal Medicine Hematology & Oncology
DX: Z51.12 Encounter for antineoplastic immunotherapy; C64.2 Malignant neoplasm of left kidney, except renal pelvis; C79.89 Secondary malignant neoplasm of other specified sites; Z90.5 Acquired absence of kidney; I10 Essential (primary) hypertension; Z87.891 Personal history of nicotine dependence
CPT/HCPCS: 80053; 84443; 85025; 96413; 99214; 99215; J7050; J9299

== ENCOUNTER 2022-05-23 08:30 | Oncology outpatient (recurring) (ONCR) | payer MEDICARE, OTHER, SELFPAY ==
[2022-05-09 08:32] LABS: Basophils % 0.7 %; Eosinophils # 0.1 10^3/uL (0.0-0.8); Eosinophils % 2.4 %; Hematocrit 44.9 % (42.0-52.0); Hemoglobin 14.4 g/dL (11.7-16.6); Lymphocytes # 1.6 10^3/uL (0.8-4.8); Lymphocytes % 29.9 %; Mean Corpuscular HGB Conc 32.1 g/dL (30.0-36.0); Mean Corpuscular Hemoglobin 28.6 pg (28.0-34.0); Mean Corpuscular Volume 89.3 fl (80-94); Mean Platelet Volume 10.2 fL (7.4-10.4); Monocytes # 0.5 10^3/uL (0.2-0.9); Monocytes % 9.3 %; Neutrophils # 3.09 10^3/uL (1.8-7.7); Neutrophils % 57.5 %; Nucleated Red Blood Cells % 0 %; Platelet Count 177 10^3/cmm (130-400); Red Blood Count 5.03 10^6/uL (4.1-5.3); Red Cell Distribution Width 13.2 % (12.1-15.1); White Blood Count 5.4 10^3/uL (4.0-10.0)
[2022-05-09 09:06] LABS: Alanine Aminotransferase 21 U/L (0-41); Albumin Level 3.8 g/dL (3.5-5.2); Alkaline Phosphatase 65 IU/L (40-130); Blood Urea Nitrogen 22 mg/dL (8-23); Calcium 9.1 mg/dL (8.5-10.5); Carbon Dioxide 28 mmol/L (22-29); Chloride 104 mmol/L (98-107); Globulin 2.7 g/dL (1.3-4.6); Glomerular Filtration Rate 66.8 mL/min (90-130); Glucose 114 mg/dL (65-115); Osmolality Calculated 296 mOsm/kg (285-295); Sodium 141 mmol/L (136-145); Thyroid Stimulating Hormone 1.83 uIU/mL (0.27-4.20); Total Bilirubin 0.3 mg/dL (0.15-1.2); Total Protein 6.5 g/dL (6.6-8.7)
[2022-05-09 09:12] LABS: Anion Gap 13.8 (5-19); Aspartate Amino Transferase 21 U/L (0-40); Potassium 4.8 mmol/L (3.5-5.1)
[2022-05-09] MEDS: sodium chloride 0.9% 250 ML 100 ML IV (10:49)
[2022-05-09] MEDS: nivolumab 240 MG in sodium chloride 0.9% 250 ML 548 MG IV (11:02)
[2022-05-09 11:57] VITALS: BP 148/92; PULSE 40; TEMP 36.7; O2SAT 94
[2022-05-17 12:00] VITALS: BP 112/78; PULSE 66; RESP 18; TEMP 36.3
[2022-05-23 09:02] LABS: Basophils % 0.7 %; Eosinophils # 0.1 10^3/uL (0.0-0.8); Hematocrit 47.3 % (42.0-52.0); Hemoglobin 15.2 g/dL (11.7-16.6); Lymphocytes # 1.7 10^3/uL (0.8-4.8); Lymphocytes % 28.8 %; Mean Corpuscular HGB Conc 32.1 g/dL (30.0-36.0); Mean Corpuscular Hemoglobin 28.7 pg (28.0-34.0); Mean Corpuscular Volume 89.4 fl (80-94); Mean Platelet Volume 9.7 fL (7.4-10.4); Monocytes # 0.7 10^3/uL (0.2-0.9); Monocytes % 11.2 %; Neutrophils # 3.37 10^3/uL (1.8-7.7); Neutrophils % 57.1 %; Nucleated Red Blood Cells % 0 %; Platelet Count 205 10^3/cmm (130-400); Red Blood Count 5.29 10^6/uL (4.1-5.3); Red Cell Distribution Width 13.3 % (12.1-15.1); White Blood Count 5.9 10^3/uL (4.0-10.0)
[2022-05-23 09:04] VITALS: BMI 35.3
[2022-05-23 09:57] LABS: Alanine Aminotransferase 21 U/L (0-41); Albumin Level 4.1 g/dL (3.5-5.2); Alkaline Phosphatase 70 U/L (40-130); Aspartate Amino Transferase 19 U/L (0-40); Blood Urea Nitrogen 16 mg/dL (8-23); Calcium 9.5 mg/dL (8.5-10.5); Carbon Dioxide 25 mmol/L (22-29); Chloride 104 mmol/L (98-107); Globulin 2.9 g/dL (1.3-4.6); Glomerular Filtration Rate 60.4 mL/min (90-130); Glucose 112 mg/dL (65-115); Osmolality Calculated 292 mOsm/kg (285-295); Sodium 140 mmol/L (136-145); Total Bilirubin 0.4 mg/dL (0.15-1.2)
[2022-05-23 09:58] LABS: Anion Gap 15.6 (5-19); Potassium 4.6 mmol/L (3.5-5.1)
[2022-05-23] MEDS: nivolumab 240 MG in sodium chloride 0.9% 250 ML 548 MG IV (11:11)
== END 2022-06-05 23:59 | disposition home or self-care (01) ==
PROVIDERS: Nurse Practitioner Family; PCP Internal Medicine; Visit Provider Internal Medicine Hematology & Oncology
DX: Z51.12 Encounter for antineoplastic immunotherapy (principal); C64.2 Malignant neoplasm of left kidney, except renal pelvis; C78.01 Secondary malignant neoplasm of right lung; C78.02 Secondary malignant neoplasm of left lung; C78.89 Secondary malignant neoplasm of other digestive organs; C79.72 Secondary malignant neoplasm of left adrenal gland; Z90.5 Acquired absence of kidney; I10 Essential (primary) hypertension; Z79.899 Other long term (current) drug therapy; Z87.891 Personal history of nicotine dependence
CPT/HCPCS: 80053; 84443; 85025; 96413; 99214; 99215; J7050; J9299

== ENCOUNTER 2022-06-20 11:30 | Oncology outpatient (recurring) (ONCR) | payer MEDICARE, OTHER, SELFPAY ==
[2022-06-06 08:58] LABS: Basophils % 0.4 %; Eosinophils # 0.1 10^3/uL (0.0-0.8); Eosinophils % 1.8 %; Hematocrit 46.6 % (42.0-52.0); Hemoglobin 15.5 g/dL (11.7-16.6); Lymphocytes # 1.6 10^3/uL (0.8-4.8); Lymphocytes % 28.5 %; Mean Corpuscular HGB Conc 33.3 g/dL (30.0-36.0); Mean Corpuscular Hemoglobin 29.1 pg (28.0-34.0); Mean Corpuscular Volume 87.6 fl (80-94); Monocytes # 0.5 10^3/uL (0.2-0.9); Monocytes % 9.1 %; Neutrophils % 59.8 %; Nucleated Red Blood Cells % 0 %; Platelet Count 209 10^3/cmm (130-400); Red Blood Count 5.32 10^6/uL (4.1-5.3); Red Cell Distribution Width 12.9 % (12.1-15.1); White Blood Count 5.5 10^3/uL (4.0-10.0)
[2022-06-06 09:28] LABS: Alanine Aminotransferase 21 U/L (0-41); Albumin Level 4.5 g/dL (3.5-5.2); Alkaline Phosphatase 71 U/L (40-130); Anion Gap 13.6 (5-19); Aspartate Amino Transferase 20 U/L (0-40); Blood Urea Nitrogen 19 mg/dL (8-23); Calcium 8.9 mg/dL (8.5-10.5); Carbon Dioxide 24 mmol/L (22-29); Chloride 104 mmol/L (98-107); Globulin 2.7 g/dL (1.3-4.6); Glomerular Filtration Rate 74.5 mL/min (90-130); Glucose 105 mg/dL (65-115); Osmolality Calculated 287 mOsm/kg (285-295); Potassium 4.6 mmol/L (3.5-5.1); Sodium 137 mmol/L (136-145); Thyroid Stimulating Hormone 1.53 uIU/mL (0.27-4.20); Total Bilirubin 0.7 mg/dL (0.15-1.2); Total Protein 7.2 g/dL (6.6-8.7)
[2022-06-06] MEDS: sodium chloride 0.9% 250 ML 100 ML IV (11:24)
[2022-06-06] MEDS: nivolumab 240 MG in sodium chloride 0.9% 250 ML 548 MG IV (12:10)
[2022-06-20 11:28] LABS: Basophils % 0.4 %; Eosinophils # 0.1 10^3/uL (0.0-0.8); Eosinophils % 1.8 %; Hematocrit 44.8 % (42.0-52.0); Hemoglobin 14.7 g/dL (11.7-16.6); Lymphocytes # 1.4 10^3/uL (0.8-4.8); Lymphocytes % 27.6 %; Mean Corpuscular HGB Conc 32.8 g/dL (30.0-36.0); Mean Corpuscular Hemoglobin 29.2 pg (28.0-34.0); Mean Corpuscular Volume 88.9 fl (80-94); Mean Platelet Volume 9.8 fL (7.4-10.4); Monocytes # 0.3 10^3/uL (0.2-0.9); Monocytes % 5.2 %; Neutrophils # 3.25 10^3/uL (1.8-7.7); Neutrophils % 64.6 %; Nucleated Red Blood Cells % 0 %; Platelet Count 182 10^3/cmm (130-400); Red Blood Count 5.04 10^6/uL (4.1-5.3); Red Cell Distribution Width 12.9 % (12.1-15.1)
[2022-06-20 12:13] LABS: Alanine Aminotransferase 19 U/L (0-41); Albumin Level 4.1 g/dL (3.5-5.2); Alkaline Phosphatase 65 U/L (40-130); Anion Gap 14.5 (5-19); Aspartate Amino Transferase 17 U/L (0-40); Blood Urea Nitrogen 17 mg/dL (8-23); Calcium 9.3 mg/dL (8.5-10.5); Carbon Dioxide 26 mmol/L (22-29); Chloride 102 mmol/L (98-107); Globulin 2.6 g/dL (1.3-4.6); Glomerular Filtration Rate 60.4 mL/min (90-130); Glucose 168 mg/dL (65-115); Osmolality Calculated 291 mOsm/kg (285-295); Potassium 4.5 mmol/L (3.5-5.1); Sodium 138 mmol/L (136-145); Thyroid Stimulating Hormone 1.65 uIU/mL (0.27-4.20); Total Bilirubin 0.5 mg/dL (0.15-1.2); Total Protein 6.7 g/dL (6.6-8.7)
[2022-06-20] MEDS: sodium chloride 0.9% 250 ML 75 ML IV (14:24)
[2022-06-20] MEDS: nivolumab 240 MG in sodium chloride 0.9% 250 ML 548 MG IV (14:28)
[2022-06-20 15:13] VITALS: BP 139/83; PULSE 54; RESP 18; TEMP 36.2; O2SAT 99
== END 2022-06-21 08:30 | disposition home or self-care (01) ==
PROVIDERS: Nurse Practitioner Family; PCP Internal Medicine; Visit Provider Internal Medicine Hematology & Oncology
DX: Z51.12 Encounter for antineoplastic immunotherapy (principal); C64.2 Malignant neoplasm of left kidney, except renal pelvis; C78.89 Secondary malignant neoplasm of other digestive organs; C78.6 Secondary malignant neoplasm of retroperitoneum and peritoneum; C79.72 Secondary malignant neoplasm of left adrenal gland; Z87.891 Personal history of nicotine dependence; Z90.5 Acquired absence of kidney; I10 Essential (primary) hypertension; Z79.899 Other long term (current) drug therapy
CPT/HCPCS: 80053; 84443; 85025; 96413; 99024; 99214; 99215; J7050; J9299

== ENCOUNTER → 2022-07-10 10:56 | Outpatient (BNVA) | payer MEDICARE, OTHER, SELFPAY | PROVIDERS: PCP Internal Medicine; Visit Provider Internal Medicine Critical Care Medicine | DX: R06.02 Shortness of breath (principal); C64.9 Malignant neoplasm of unspecified kidney, except renal pelvis; R05.3 Chronic cough; Z87.891 Personal history of nicotine dependence; E66.9 Obesity, unspecified; Z68.36 Body mass index [BMI] 36.0-36.9, adult | CPT/HCPCS: 99213 ==

== ENCOUNTER 2022-07-25 10:00 | Oncology outpatient (recurring) (ONCR) | payer MEDICARE, OTHER, SELFPAY ==
[2022-07-11 10:42] LABS: Basophils % 0.7 %; Eosinophils # 0.1 10^3/uL (0.0-0.8); Eosinophils % 2.4 %; Hematocrit 43.3 % (42.0-52.0); Lymphocytes # 1.4 10^3/uL (0.8-4.8); Lymphocytes % 25.7 %; Mean Corpuscular HGB Conc 32.3 g/dL (30.0-36.0); Mean Corpuscular Hemoglobin 29.4 pg (28.0-34.0); Mean Corpuscular Volume 90.8 fl (80-94); Mean Platelet Volume 9.9 fL (7.4-10.4); Monocytes # 0.5 10^3/uL (0.2-0.9); Monocytes % 9.1 %; Neutrophils # 3.31 10^3/uL (1.8-7.7); Neutrophils % 61.7 %; Nucleated Red Blood Cells % 0 %; Platelet Count 195 10^3/cmm (130-400); Red Blood Count 4.77 10^6/uL (4.1-5.3); Red Cell Distribution Width 13.2 % (12.1-15.1); White Blood Count 5.4 10^3/uL (4.0-10.0)
[2022-07-11 10:58] LABS: Alanine Aminotransferase 31 U/L (0-41); Albumin Level 3.8 g/dL (3.5-5.2); Alkaline Phosphatase 59 U/L (40-130); Blood Urea Nitrogen 19 mg/dL (8-23); Calcium 9.1 mg/dL (8.5-10.5); Carbon Dioxide 26 mmol/L (22-29); Chloride 102 mmol/L (98-107); Globulin 2.6 g/dL (1.3-4.6); Glomerular Filtration Rate 74.5 mL/min (90-130); Glucose 109 mg/dL (65-115); Osmolality Calculated 289 mOsm/kg (285-295); Sodium 138 mmol/L (136-145); Thyroid Stimulating Hormone 1.27 uIU/mL (0.27-4.20); Total Bilirubin 0.5 mg/dL (0.15-1.2); Total Protein 6.4 g/dL (6.6-8.7)
[2022-07-11 10:59] LABS: Anion Gap 14.9 (5-19); Aspartate Amino Transferase 24 U/L (0-40); Potassium 4.9 mmol/L (3.5-5.1)
[2022-07-11] MEDS: nivolumab 240 MG in sodium chloride 0.9% 250 ML 548 MG IV (12:42)
[2022-07-11 13:31] VITALS: PULSE 56; RESP 16; TEMP 36.9; O2SAT 99
[2022-07-25 10:00] LABS: Basophils % 0.5 %; Eosinophils # 0.1 10^3/uL (0.0-0.8); Eosinophils % 2.4 %; Hematocrit 46.5 % (42.0-52.0); Lymphocytes # 1.6 10^3/uL (0.8-4.8); Lymphocytes % 27.1 %; Mean Corpuscular HGB Conc 32.3 g/dL (30.0-36.0); Mean Corpuscular Hemoglobin 29.3 pg (28.0-34.0); Mean Corpuscular Volume 90.8 fl (80-94); Mean Platelet Volume 9.8 fL (7.4-10.4); Monocytes # 0.6 10^3/uL (0.2-0.9); Monocytes % 9.7 %; Neutrophils # 3.55 10^3/uL (1.8-7.7); Neutrophils % 60.1 %; Nucleated Red Blood Cells % 0 %; Platelet Count 193 10^3/cmm (130-400); Red Blood Count 5.12 10^6/uL (4.1-5.3); White Blood Count 5.9 10^3/uL (4.0-10.0)
[2022-07-25 10:24] LABS: Alanine Aminotransferase 22 U/L (0-41); Albumin Level 4.3 g/dL (3.5-5.2); Alkaline Phosphatase 69 U/L (40-130); Anion Gap 14.6 (5-19); Aspartate Amino Transferase 17 U/L (0-40); Blood Urea Nitrogen 14 mg/dL (8-23); Calcium 9.4 mg/dL (8.5-10.5); Carbon Dioxide 27 mmol/L (22-29); Chloride 101 mmol/L (98-107); Glomerular Filtration Rate 74.5 mL/min (90-130); Glucose 103 mg/dL (65-115); Osmolality Calculated 287 mOsm/kg (285-295); Potassium 4.6 mmol/L (3.5-5.1); Sodium 138 mmol/L (136-145); Total Bilirubin 0.6 mg/dL (0.15-1.2); Total Protein 7.3 g/dL (6.6-8.7)
[2022-07-25] MEDS: sodium chloride 0.9% 250 ML 100 ML IV (12:16)
[2022-07-25] MEDS: nivolumab 240 MG in sodium chloride 0.9% 250 ML 548 MG IV (12:34)
== END 2022-08-05 23:59 | disposition home or self-care (01) ==
PROVIDERS: PCP Internal Medicine; Visit Provider Internal Medicine Hematology & Oncology
DX: Z51.12 Encounter for antineoplastic immunotherapy (principal); C79.89 Secondary malignant neoplasm of other specified sites; C64.2 Malignant neoplasm of left kidney, except renal pelvis
CPT/HCPCS: 80053; 84443; 85025; 96413; 99214; J7050; J9299

== ENCOUNTER 2022-08-22 09:30 | Oncology outpatient (recurring) (ONCR) | payer MEDICARE, OTHER, SELFPAY ==
[2022-08-08 09:50] VITALS: BMI 35.6
[2022-08-08 09:58] LABS: Basophils % 0.5 %; Eosinophils # 0.2 10^3/uL (0.0-0.8); Eosinophils % 2.5 %; Hematocrit 46.8 % (42.0-52.0); Hemoglobin 15.2 g/dL (11.7-16.6); Lymphocytes # 1.6 10^3/uL (0.8-4.8); Lymphocytes % 26.8 %; Mean Corpuscular HGB Conc 32.5 g/dL (30.0-36.0); Mean Corpuscular Volume 89.3 fl (80-94); Mean Platelet Volume 9.7 fL (7.4-10.4); Monocytes # 0.5 10^3/uL (0.2-0.9); Monocytes % 9.2 %; Neutrophils # 3.58 10^3/uL (1.8-7.7); Neutrophils % 60.8 %; Nucleated Red Blood Cells % 0 %; Platelet Count 204 10^3/cmm (130-400); Red Blood Count 5.24 10^6/uL (4.1-5.3); Red Cell Distribution Width 12.6 % (12.1-15.1); White Blood Count 5.9 10^3/uL (4.0-10.0)
[2022-08-08 10:25] LABS: Alanine Aminotransferase 22 U/L (0-41); Albumin Level 4.5 g/dL (3.5-5.2); Alkaline Phosphatase 69 U/L (40-130); Anion Gap 13.3 (5-19); Aspartate Amino Transferase 20 U/L (0-40); Blood Urea Nitrogen 18 mg/dL (8-23); Calcium 9.6 mg/dL (8.5-10.5); Carbon Dioxide 27 mmol/L (22-29); Chloride 102 mmol/L (98-107); Globulin 2.7 g/dL (1.3-4.6); Glomerular Filtration Rate 74.5 mL/min (90-130); Glucose 121 mg/dL (65-115); Osmolality Calculated 289 mOsm/kg (285-295); Potassium 4.3 mmol/L (3.5-5.1); Sodium 138 mmol/L (136-145); Thyroid Stimulating Hormone 1.39 uIU/mL (0.27-4.20); Total Bilirubin 0.5 mg/dL (0.15-1.2); Total Protein 7.2 g/dL (6.6-8.7)
[2022-08-08] MEDS: sodium chloride 0.9% 250 ML 75 ML IV (11:51)
[2022-08-08] MEDS: nivolumab 240 MG in sodium chloride 0.9% 250 ML 548 MG IV (12:02)
[2022-08-08 12:58] VITALS: BP 154/92; PULSE 51; RESP 16; TEMP 36.8; O2SAT 96
[2022-08-22 09:30] VITALS: BMI 35.9
[2022-08-22 09:41] LABS: Basophils % 0.5 %; Eosinophils # 0.1 10^3/uL (0.0-0.8); Eosinophils % 2.4 %; Hematocrit 46.2 % (42.0-52.0); Hemoglobin 15.2 g/dL (11.7-16.6); Lymphocytes # 1.9 10^3/uL (0.8-4.8); Lymphocytes % 33.6 %; Mean Corpuscular HGB Conc 32.9 g/dL (30.0-36.0); Mean Corpuscular Hemoglobin 29.2 pg (28.0-34.0); Mean Corpuscular Volume 88.7 fl (80-94); Mean Platelet Volume 9.7 fL (7.4-10.4); Monocytes # 0.6 10^3/uL (0.2-0.9); Monocytes % 10.5 %; Neutrophils # 2.91 10^3/uL (1.8-7.7); Neutrophils % 52.8 %; Nucleated Red Blood Cells % 0 %; Platelet Count 196 10^3/cmm (130-400); Red Blood Count 5.21 10^6/uL (4.1-5.3); Red Cell Distribution Width 12.6 % (12.1-15.1); White Blood Count 5.5 10^3/uL (4.0-10.0)
[2022-08-22 10:18] LABS: Alanine Aminotransferase 23 U/L (0-41); Albumin Level 4.1 g/dL (3.5-5.2); Alkaline Phosphatase 65 U/L (40-130); Blood Urea Nitrogen 17 mg/dL (8-23); Calcium 9.3 mg/dL (8.5-10.5); Carbon Dioxide 26 mmol/L (22-29); Chloride 100 mmol/L (98-107); Globulin 2.8 g/dL (1.3-4.6); Glomerular Filtration Rate 84.2 mL/min (90-130); Glucose 130 mg/dL (65-115); Osmolality Calculated 285 mOsm/kg (285-295); Sodium 136 mmol/L (136-145); Thyroid Stimulating Hormone 0.96 uIU/mL (0.27-4.20); Total Bilirubin 0.6 mg/dL (0.15-1.2); Total Protein 6.9 g/dL (6.6-8.7)
[2022-08-22 10:20] LABS: Aspartate Amino Transferase 23 U/L (0-40)
[2022-08-22] MEDS: sodium chloride 0.9% 250 ML 100 ML IV (11:19)
[2022-08-22] MEDS: nivolumab 240 MG in sodium chloride 0.9% 250 ML 548 MG IV (11:26)
[2022-08-22 12:10] VITALS: BP 141/92; PULSE 67; RESP 16; TEMP 36.6; O2SAT 97
== END 2022-08-23 09:11 | disposition home or self-care (01) ==
PROVIDERS: PCP Internal Medicine; Visit Provider Internal Medicine Hematology & Oncology
DX: Z51.12 Encounter for antineoplastic immunotherapy (principal); C64.2 Malignant neoplasm of left kidney, except renal pelvis; C79.72 Secondary malignant neoplasm of left adrenal gland; C79.89 Secondary malignant neoplasm of other specified sites; Z90.5 Acquired absence of kidney; Z79.899 Other long term (current) drug therapy; Z87.891 Personal history of nicotine dependence
CPT/HCPCS: 80053; 84443; 85025; 96413; 99214; J7050; J9299

== ENCOUNTER 2022-10-03 08:35 | Oncology outpatient (recurring) (ONCR) | payer MEDICARE, OTHER, SELFPAY ==
[2022-09-05 10:02] LABS: Basophils % 0.7 %; Eosinophils # 0.1 10^3/uL (0.0-0.8); Eosinophils % 2.4 %; Hematocrit 45.4 % (42.0-52.0); Hemoglobin 14.9 g/dL (11.7-16.6); Lymphocytes # 1.7 10^3/uL (0.8-4.8); Lymphocytes % 31.9 %; Mean Corpuscular HGB Conc 32.8 g/dL (30.0-36.0); Mean Corpuscular Hemoglobin 29.3 pg (28.0-34.0); Mean Corpuscular Volume 89.2 fl (80-94); Mean Platelet Volume 9.7 fL (7.4-10.4); Monocytes # 0.6 10^3/uL (0.2-0.9); Monocytes % 10.9 %; Neutrophils # 2.92 10^3/uL (1.8-7.7); Neutrophils % 53.7 %; Nucleated Red Blood Cells % 0 %; Platelet Count 192 10^3/cmm (130-400); Red Blood Count 5.09 10^6/uL (4.1-5.3); Red Cell Distribution Width 12.7 % (12.1-15.1); White Blood Count 5.4 10^3/uL (4.0-10.0)
[2022-09-05 10:40] LABS: Alanine Aminotransferase 22 U/L (0-41); Albumin Level 4.1 g/dL (3.5-5.2); Alkaline Phosphatase 64 U/L (40-130); Anion Gap 12.2 (5-19); Aspartate Amino Transferase 18 U/L (0-40); Blood Urea Nitrogen 17 mg/dL (8-23); Calcium 9.5 mg/dL (8.5-10.5); Carbon Dioxide 27 mmol/L (22-29); Chloride 104 mmol/L (98-107); Globulin 2.8 g/dL (1.3-4.6); Glomerular Filtration Rate 74.5 mL/min (90-130); Glucose 103 mg/dL (65-115); Osmolality Calculated 290 mOsm/kg (285-295); Potassium 4.2 mmol/L (3.5-5.1); Sodium 139 mmol/L (136-145); Thyroid Stimulating Hormone 1.27 uIU/mL (0.27-4.20); Total Bilirubin 0.5 mg/dL (0.15-1.2); Total Protein 6.9 g/dL (6.6-8.7)
[2022-09-05] MEDS: nivolumab 240 MG in sodium chloride 0.9% 250 ML 548 MG IV (11:49)
[2022-09-05 12:45] VITALS: BP 112/74; PULSE 66; RESP 16; TEMP 36.7; O2SAT 98
[2022-09-19 08:40] VITALS: BMI 35.8
[2022-09-19 08:44] LABS: Basophils % 0.6 %; Eosinophils # 0.1 10^3/uL (0.0-0.8); Eosinophils % 2.2 %; Hematocrit 46.4 % (42.0-52.0); Hemoglobin 15.3 g/dL (11.7-16.6); Lymphocytes # 1.8 10^3/uL (0.8-4.8); Lymphocytes % 27.4 %; Mean Corpuscular Hemoglobin 29.3 pg (28.0-34.0); Mean Corpuscular Volume 88.7 fl (80-94); Mean Platelet Volume 9.3 fL (7.4-10.4); Monocytes # 0.7 10^3/uL (0.2-0.9); Monocytes % 11.3 %; Neutrophils # 3.71 10^3/uL (1.8-7.7); Neutrophils % 58.2 %; Nucleated Red Blood Cells % 0 %; Platelet Count 206 10^3/cmm (130-400); Red Blood Count 5.23 10^6/uL (4.1-5.3); Red Cell Distribution Width 12.7 % (12.1-15.1); White Blood Count 6.4 10^3/uL (4.0-10.0)
[2022-09-19 09:18] LABS: Alanine Aminotransferase 22 U/L (0-41); Albumin Level 4.3 g/dL (3.5-5.2); Alkaline Phosphatase 67 U/L (40-130); Anion Gap 13.7 (5-19); Aspartate Amino Transferase 21 U/L (0-40); Blood Urea Nitrogen 22 mg/dL (8-23); Calcium 9.5 mg/dL (8.5-10.5); Carbon Dioxide 26 mmol/L (22-29); Chloride 103 mmol/L (98-107); Globulin 2.7 g/dL (1.3-4.6); Glomerular Filtration Rate 74.5 mL/min (90-130); Glucose 111 mg/dL (65-115); Osmolality Calculated 290 mOsm/kg (285-295); Potassium 4.7 mmol/L (3.5-5.1); Sodium 138 mmol/L (136-145); Thyroid Stimulating Hormone 2.01 uIU/mL (0.27-4.20); Total Bilirubin 0.5 mg/dL (0.15-1.2)
[2022-09-19] MEDS: sodium chloride 0.9% 250 ML 75 ML IV (10:30)
[2022-09-19] MEDS: nivolumab 240 MG in sodium chloride 0.9% 250 ML 548 MG IV (10:40)
[2022-09-19 11:25] VITALS: BP 163/103; PULSE 52; RESP 16; TEMP 36.1; O2SAT 96
[2022-10-03 09:05] LABS: Basophils % 0.9 %; Eosinophils # 0.1 10^3/uL (0.0-0.8); Eosinophils % 2.8 %; Hematocrit 46.3 % (42.0-52.0); Hemoglobin 15.5 g/dL (11.7-16.6); Lymphocytes # 1.6 10^3/uL (0.8-4.8); Lymphocytes % 34.1 %; Mean Corpuscular HGB Conc 33.5 g/dL (30.0-36.0); Mean Corpuscular Hemoglobin 29.5 pg (28.0-34.0); Mean Platelet Volume 9.7 fL (7.4-10.4); Monocytes # 0.6 10^3/uL (0.2-0.9); Monocytes % 11.8 %; Neutrophils # 2.34 10^3/uL (1.8-7.7); Neutrophils % 50.2 %; Nucleated Red Blood Cells % 0 %; Platelet Count 199 10^3/cmm (130-400); Red Blood Count 5.26 10^6/uL (4.1-5.3); Red Cell Distribution Width 12.6 % (12.1-15.1); White Blood Count 4.7 10^3/uL (4.0-10.0)
[2022-10-03 09:33] LABS: Alanine Aminotransferase 21 U/L (0-41); Albumin Level 4.2 g/dL (3.5-5.2); Alkaline Phosphatase 74 U/L (40-130); Anion Gap 12.7 (5-19); Aspartate Amino Transferase 21 U/L (0-40); Blood Urea Nitrogen 15 mg/dL (8-23); Calcium 9.9 mg/dL (8.5-10.5); Carbon Dioxide 27 mmol/L (22-29); Chloride 102 mmol/L (98-107); Globulin 3.2 g/dL (1.3-4.6); Glomerular Filtration Rate 74.5 mL/min (90-130); Glucose 97 mg/dL (65-115); Osmolality Calculated 285 mOsm/kg (285-295); Potassium 4.7 mmol/L (3.5-5.1); Sodium 137 mmol/L (136-145); Thyroid Stimulating Hormone 1.49 uIU/mL (0.27-4.20); Total Bilirubin 0.5 mg/dL (0.15-1.2); Total Protein 7.4 g/dL (6.6-8.7)
[2022-10-03] MEDS: nivolumab 240 MG in sodium chloride 0.9% 250 ML 548 MG IV (11:09)
[2022-10-03 11:53] VITALS: BP 153/93; PULSE 51; TEMP 36.9; O2SAT 96
== END 2022-10-05 23:59 | disposition home or self-care (01) ==
PROVIDERS: PCP Internal Medicine; Visit Provider Internal Medicine Hematology & Oncology
DX: C64.2 Malignant neoplasm of left kidney, except renal pelvis; Z51.12 Encounter for antineoplastic immunotherapy; Z79.899 Other long term (current) drug therapy
CPT/HCPCS: 80053; 84443; 85025; 96413; 99214; J7050; J9299

== ENCOUNTER 2022-10-31 08:00 | Oncology outpatient (recurring) (ONCR) | payer MEDICARE, OTHER, SELFPAY ==
[2022-10-17 09:22] LABS: Basophils % 0.8 %; Eosinophils # 0.1 10^3/uL (0.0-0.8); Eosinophils % 2.4 %; Hematocrit 46.1 % (42.0-52.0); Lymphocytes # 1.5 10^3/uL (0.8-4.8); Mean Corpuscular HGB Conc 32.5 g/dL (30.0-36.0); Mean Corpuscular Hemoglobin 29.1 pg (28.0-34.0); Mean Corpuscular Volume 89.3 fl (80-94); Mean Platelet Volume 9.8 fL (7.4-10.4); Monocytes # 0.5 10^3/uL (0.2-0.9); Monocytes % 10.2 %; Neutrophils # 3.05 10^3/uL (1.8-7.7); Neutrophils % 57.4 %; Nucleated Red Blood Cells % 0 %; Platelet Count 199 10^3/cmm (130-400); Red Blood Count 5.16 10^6/uL (4.1-5.3); Red Cell Distribution Width 12.6 % (12.1-15.1); White Blood Count 5.3 10^3/uL (4.0-10.0)
[2022-10-17 09:51] LABS: Alanine Aminotransferase 22 U/L (0-41); Albumin Level 4.2 g/dL (3.5-5.2); Alkaline Phosphatase 64 U/L (40-130); Anion Gap 13.6 (5-19); Aspartate Amino Transferase 19 U/L (0-40); Blood Urea Nitrogen 15 mg/dL (8-23); Carbon Dioxide 26 mmol/L (22-29); Chloride 103 mmol/L (98-107); Globulin 2.7 g/dL (1.3-4.6); Glomerular Filtration Rate 84.2 mL/min (90-130); Glucose 117 mg/dL (65-115); Osmolality Calculated 288 mOsm/kg (285-295); Potassium 4.6 mmol/L (3.5-5.1); Sodium 138 mmol/L (136-145); Thyroid Stimulating Hormone 1.46 uIU/mL (0.27-4.20); Total Bilirubin 0.6 mg/dL (0.15-1.2); Total Protein 6.9 g/dL (6.6-8.7)
[2022-10-17] MEDS: nivolumab 240 MG in sodium chloride 0.9% 250 ML 548 MG IV (11:14)
[2022-10-17 11:51] VITALS: BP 165/94; PULSE 57; RESP 16; TEMP 36.4; O2SAT 97
[2022-10-31 08:20] LABS: Basophils % 0.8 %; Eosinophils # 0.2 10^3/uL (0.0-0.8); Eosinophils % 3.1 %; Hematocrit 45.9 % (42.0-52.0); Hemoglobin 15.1 g/dL (11.7-16.6); Lymphocytes # 1.5 10^3/uL (0.8-4.8); Lymphocytes % 28.4 %; Mean Corpuscular HGB Conc 32.9 g/dL (30.0-36.0); Mean Corpuscular Hemoglobin 29.3 pg (28.0-34.0); Mean Platelet Volume 9.4 fL (7.4-10.4); Monocytes # 0.6 10^3/uL (0.2-0.9); Monocytes % 11.1 %; Neutrophils # 2.96 10^3/uL (1.8-7.7); Neutrophils % 56.4 %; Nucleated Red Blood Cells % 0 %; Platelet Count 183 10^3/cmm (130-400); Red Blood Count 5.16 10^6/uL (4.1-5.3); Red Cell Distribution Width 12.6 % (12.1-15.1); White Blood Count 5.2 10^3/uL (4.0-10.0)
[2022-10-31 08:53] LABS: Alanine Aminotransferase 19 U/L (0-41); Albumin Level 4.3 g/dL (3.5-5.2); Alkaline Phosphatase 72 U/L (40-130); Anion Gap 13.6 (5-19); Aspartate Amino Transferase 18 U/L (0-40); Blood Urea Nitrogen 19 mg/dL (8-23); Calcium 9.3 mg/dL (8.5-10.5); Carbon Dioxide 26 mmol/L (22-29); Chloride 102 mmol/L (98-107); Globulin 2.8 g/dL (1.3-4.6); Glomerular Filtration Rate 84.2 mL/min (90-130); Glucose 104 mg/dL (65-115); Osmolality Calculated 287 mOsm/kg (285-295); Potassium 4.6 mmol/L (3.5-5.1); Sodium 137 mmol/L (136-145); Thyroid Stimulating Hormone 1.58 uIU/mL (0.27-4.20); Total Bilirubin 0.5 mg/dL (0.15-1.2); Total Protein 7.1 g/dL (6.6-8.7)
[2022-10-31] MEDS: sodium chloride 0.9% 250 ML 100 ML IV (09:53)
[2022-10-31 09:55] VITALS: BP 185/115; PULSE 62; TEMP 36.7; O2SAT 96
[2022-10-31] MEDS: nivolumab 240 MG in sodium chloride 0.9% 250 ML 548 MG IV (10:02)
[2022-10-31 10:10] VITALS: BP 194/94
[2022-10-31 11:09] VITALS: BP 196/104
[2022-10-31] MEDS: cloNIDine 0.1 mg Tablet PO (11:09)
[2022-10-31 12:51] VITALS: BP 174/82
--- NOTE | 2022-10-31 12:52 | PC.NURSE ---
Pt BP at start of tx was 185/115. Approved by Dr. Canseco to start tx and recheck BP in 15 minutes. Checked pt BP at 1010, BP 194/94. At end of tx at 1050, BP 194/104. Spoke with Dr. Canseco, states to give pt Clonidine 0.1mg and recheck BP in 30 minutes. At 1140, pt BP was 198/104 with automated cuff. Vince BP was 174/82. Spoke with Dr. Canseco regarding new BP, states to have pt continue checking BP at home, pt is okay to go home. Prescription sent in by Ruby VARGAS of Norvasc 5mg daily per verbal order from Dr. Canseco. Pt will filler picker prescription and continue monitoring BP. RENA
== END 2022-11-05 23:59 | disposition home or self-care (01) ==
PROVIDERS: PCP Internal Medicine; Visit Provider Internal Medicine Hematology & Oncology
DX: Z51.12 Encounter for antineoplastic immunotherapy (principal); C64.2 Malignant neoplasm of left kidney, except renal pelvis; Z79.899 Other long term (current) drug therapy; I10 Essential (primary) hypertension
CPT/HCPCS: 80053; 84443; 85025; 96413; 99214; 99215; J7050; J9299

== ENCOUNTER 2022-11-28 09:00 | Oncology outpatient (recurring) (ONCR) | payer MEDICARE, OTHER, SELFPAY ==
[2022-11-14 08:22] VITALS: BMI 35.6
[2022-11-14 08:26] LABS: Basophils # 0.1 10^3/uL (0.0-0.1); Basophils % 0.9 %; Eosinophils # 0.2 10^3/uL (0.0-0.8); Eosinophils % 3.5 %; Hematocrit 47.5 % (42.0-52.0); Hemoglobin 15.3 g/dL (11.7-16.6); Lymphocytes # 1.6 10^3/uL (0.8-4.8); Mean Corpuscular HGB Conc 32.2 g/dL (30.0-36.0); Mean Corpuscular Hemoglobin 28.9 pg (28.0-34.0); Mean Corpuscular Volume 89.6 fl (80-94); Monocytes # 0.6 10^3/uL (0.2-0.9); Monocytes % 11.8 %; Neutrophils # 2.87 10^3/uL (1.8-7.7); Neutrophils % 53.6 %; Nucleated Red Blood Cells % 0 %; Platelet Count 203 10^3/cmm (130-400); Red Cell Distribution Width 12.5 % (12.1-15.1); White Blood Count 5.4 10^3/uL (4.0-10.0)
[2022-11-14 09:00] LABS: Alanine Aminotransferase 23 U/L (0-41); Albumin Level 4.2 g/dL (3.5-5.2); Alkaline Phosphatase 81 U/L (40-130); Anion Gap 13.5 (5-19); Aspartate Amino Transferase 22 U/L (0-40); Blood Urea Nitrogen 18 mg/dL (8-23); Calcium 9.9 mg/dL (8.5-10.5); Carbon Dioxide 29 mmol/L (22-29); Chloride 101 mmol/L (98-107); Globulin 2.9 g/dL (1.3-4.6); Glomerular Filtration Rate 74.5 mL/min (90-130); Glucose 108 mg/dL (65-115); Osmolality Calculated 290 mOsm/kg (285-295); Potassium 4.5 mmol/L (3.5-5.1); Sodium 139 mmol/L (136-145); Thyroid Stimulating Hormone 1.88 uIU/mL (0.27-4.20); Total Bilirubin 0.7 mg/dL (0.15-1.2); Total Protein 7.1 g/dL (6.6-8.7)
[2022-11-14] MEDS: nivolumab 240 MG in sodium chloride 0.9% 250 ML 548 MG IV (10:05)
[2022-11-14 10:50] VITALS: BP 149/88; PULSE 50; RESP 16; TEMP 36.2; O2SAT 95
[2022-11-28 08:48] VITALS: BMI 35.9
[2022-11-28 09:22] LABS: Basophils % 0.6 %; Eosinophils # 0.2 10^3/uL (0.0-0.8); Eosinophils % 2.8 %; Hematocrit 45.3 % (42.0-52.0); Hemoglobin 14.9 g/dL (11.7-16.6); Lymphocytes # 1.5 10^3/uL (0.8-4.8); Lymphocytes % 28.7 %; Mean Corpuscular HGB Conc 32.9 g/dL (30.0-36.0); Mean Corpuscular Hemoglobin 29.4 pg (28.0-34.0); Mean Corpuscular Volume 89.3 fl (80-94); Mean Platelet Volume 9.4 fL (7.4-10.4); Monocytes # 0.6 10^3/uL (0.2-0.9); Monocytes % 10.4 %; Neutrophils # 3.06 10^3/uL (1.8-7.7); Neutrophils % 57.1 %; Nucleated Red Blood Cells % 0 %; Platelet Count 190 10^3/cmm (130-400); Red Blood Count 5.07 10^6/uL (4.1-5.3); Red Cell Distribution Width 12.7 % (12.1-15.1); White Blood Count 5.4 10^3/uL (4.0-10.0)
[2022-11-28 09:46] LABS: Alanine Aminotransferase 23 U/L (0-41); Albumin Level 4.1 g/dL (3.5-5.2); Alkaline Phosphatase 79 U/L (40-130); Anion Gap 14.4 (5-19); Aspartate Amino Transferase 21 U/L (0-40); Blood Urea Nitrogen 16 mg/dL (8-23); Calcium 9.1 mg/dL (8.5-10.5); Carbon Dioxide 27 mmol/L (22-29); Chloride 100 mmol/L (98-107); Globulin 3.1 g/dL (1.3-4.6); Glomerular Filtration Rate 66.8 mL/min (90-130); Glucose 110 mg/dL (65-115); Osmolality Calculated 286 mOsm/kg (285-295); Potassium 4.4 mmol/L (3.5-5.1); Sodium 137 mmol/L (136-145); Total Bilirubin 0.7 mg/dL (0.15-1.2); Total Protein 7.2 g/dL (6.6-8.7)
[2022-11-28] MEDS: nivolumab 240 MG in sodium chloride 0.9% 250 ML 548 MG IV (11:48)
[2022-11-28 12:33] VITALS: BP 152/91; PULSE 55; RESP 16; TEMP 36.2; O2SAT 97
== END 2022-12-03 23:59 | disposition home or self-care (01) ==
PROVIDERS: PCP Family Medicine; Visit Provider Internal Medicine Hematology & Oncology
DX: Z51.12 Encounter for antineoplastic immunotherapy (principal); C64.2 Malignant neoplasm of left kidney, except renal pelvis; Z79.899 Other long term (current) drug therapy; C79.72 Secondary malignant neoplasm of left adrenal gland; Z90.5 Acquired absence of kidney; Z87.891 Personal history of nicotine dependence
CPT/HCPCS: 80053; 84443; 85025; 96413; 99214; J7050; J9299

== ENCOUNTER 2023-01-01 11:30 | Oncology outpatient (recurring) (ONCR) | payer MEDICARE, OTHER, SELFPAY ==
[2022-12-12 10:07] LABS: Basophils % 0.5 %; Eosinophils # 0.2 10^3/uL (0.0-0.8); Hematocrit 45.1 % (42.0-52.0); Hemoglobin 14.6 g/dL (11.7-16.6); Lymphocytes # 1.7 10^3/uL (0.8-4.8); Lymphocytes % 26.1 %; Mean Corpuscular HGB Conc 32.4 g/dL (30.0-36.0); Mean Corpuscular Hemoglobin 28.9 pg (28.0-34.0); Mean Corpuscular Volume 89.3 fl (80-94); Mean Platelet Volume 9.6 fL (7.4-10.4); Monocytes # 0.6 10^3/uL (0.2-0.9); Monocytes % 8.9 %; Neutrophils # 3.91 10^3/uL (1.8-7.7); Neutrophils % 61.2 %; Nucleated Red Blood Cells % 0 %; Platelet Count 197 10^3/cmm (130-400); Red Blood Count 5.05 10^6/uL (4.1-5.3); Red Cell Distribution Width 12.5 % (12.1-15.1); White Blood Count 6.4 10^3/uL (4.0-10.0)
[2022-12-12 10:33] LABS: Alanine Aminotransferase 22 U/L (0-41); Albumin Level 4.2 g/dL (3.5-5.2); Alkaline Phosphatase 74 U/L (40-130); Anion Gap 12.5 (5-19); Aspartate Amino Transferase 21 U/L (0-40); Blood Urea Nitrogen 16 mg/dL (8-23); Calcium 9.1 mg/dL (8.5-10.5); Carbon Dioxide 28 mmol/L (22-29); Chloride 99 mmol/L (98-107); Globulin 3.1 g/dL (1.3-4.6); Glomerular Filtration Rate 84.2 mL/min (90-130); Glucose 95 mg/dL (65-115); Osmolality Calculated 281 mOsm/kg (285-295); Potassium 4.5 mmol/L (3.5-5.1); Sodium 135 mmol/L (136-145); Total Bilirubin 0.8 mg/dL (0.15-1.2); Total Protein 7.3 g/dL (6.6-8.7)
[2022-12-12] MEDS: nivolumab 240 MG in sodium chloride 0.9% 250 ML 548 MG IV (11:59)
[2022-12-12 12:37] VITALS: BP 154/95; PULSE 50; RESP 16; TEMP 36.6; O2SAT 95
[2022-12-12 19:40] LABS: Thyroid Stimulating Hormone 1.26 uIU/mL (0.27-4.20)
[2023-01-01 11:18] LABS: Basophils % 0.7 %; Eosinophils # 0.1 10^3/uL (0.0-0.8); Eosinophils % 2.1 %; Hematocrit 43.4 % (42.0-52.0); Hemoglobin 14.4 g/dL (11.7-16.6); Lymphocytes # 1.8 10^3/uL (0.8-4.8); Lymphocytes % 29.6 %; Mean Corpuscular HGB Conc 33.2 g/dL (30.0-36.0); Mean Corpuscular Hemoglobin 29.4 pg (28.0-34.0); Mean Corpuscular Volume 88.6 fl (80-94); Mean Platelet Volume 9.8 fL (7.4-10.4); Monocytes # 0.7 10^3/uL (0.2-0.9); Monocytes % 11.2 %; Neutrophils # 3.41 10^3/uL (1.8-7.7); Neutrophils % 56.1 %; Nucleated Red Blood Cells % 0 %; Platelet Count 203 10^3/cmm (130-400); Red Cell Distribution Width 12.7 % (12.1-15.1); White Blood Count 6.1 10^3/uL (4.0-10.0)
[2023-01-01 11:56] LABS: Alanine Aminotransferase 23 U/L (0-41); Albumin Level 4.3 g/dL (3.5-5.2); Alkaline Phosphatase 72 U/L (40-130); Blood Urea Nitrogen 22 mg/dL (8-23); Calcium 8.9 mg/dL (8.5-10.5); Carbon Dioxide 25 mmol/L (22-29); Chloride 99 mmol/L (98-107); Globulin 2.7 g/dL (1.3-4.6); Glomerular Filtration Rate 84.2 mL/min (90-130); Glucose 102 mg/dL (65-115); Osmolality Calculated 288 mOsm/kg (285-295); Sodium 137 mmol/L (136-145); Thyroid Stimulating Hormone 1.36 uIU/mL (0.27-4.20); Total Bilirubin 0.6 mg/dL (0.15-1.2)
[2023-01-01 11:57] LABS: Anion Gap 17.5 (5-19); Aspartate Amino Transferase 24 U/L (0-40); Potassium 4.5 mmol/L (3.5-5.1)
[2023-01-01] MEDS: nivolumab 240 MG in sodium chloride 0.9% 250 ML 548 MG IV (14:49)
[2023-01-01 15:36] VITALS: BP 134/78; PULSE 56; TEMP 36.8; O2SAT 99
== END 2023-01-03 23:59 | disposition home or self-care (01) ==
PROVIDERS: Nurse Practitioner Family; PCP Family Medicine; Visit Provider Internal Medicine Hematology & Oncology
DX: Z51.12 Encounter for antineoplastic immunotherapy (principal); C64.2 Malignant neoplasm of left kidney, except renal pelvis; C79.72 Secondary malignant neoplasm of left adrenal gland; C79.89 Secondary malignant neoplasm of other specified sites; Z79.899 Other long term (current) drug therapy
CPT/HCPCS: 80053; 84443; 85025; 96413; 99214; J7050; J9299

== ENCOUNTER 2023-01-29 09:00 | Oncology outpatient (recurring) (ONCR) | payer MEDICARE, OTHER, SELFPAY ==
[2023-01-15 09:18] VITALS: BP 146/93; PULSE 65; RESP 18; O2SAT 95
[2023-01-15 09:22] LABS: Basophils % 0.5 %; Eosinophils # 0.1 10^3/uL (0.0-0.8); Eosinophils % 2.4 %; Hematocrit 45.2 % (42.0-52.0); Hemoglobin 14.8 g/dL (11.7-16.6); Lymphocytes # 1.9 10^3/uL (0.8-4.8); Mean Corpuscular HGB Conc 32.7 g/dL (30.0-36.0); Mean Corpuscular Hemoglobin 28.6 pg (28.0-34.0); Mean Corpuscular Volume 87.3 fl (80-94); Mean Platelet Volume 9.7 fL (7.4-10.4); Monocytes # 0.5 10^3/uL (0.2-0.9); Monocytes % 9.1 %; Neutrophils # 3.24 10^3/uL (1.8-7.7); Neutrophils % 55.8 %; Nucleated Red Blood Cells % 0 %; Platelet Count 227 10^3/cmm (130-400); Red Blood Count 5.18 10^6/uL (4.1-5.3); Red Cell Distribution Width 12.7 % (12.1-15.1); White Blood Count 5.8 10^3/uL (4.0-10.0)
[2023-01-15 09:48] LABS: Alanine Aminotransferase 23 U/L (0-41); Albumin Level 4.1 g/dL (3.5-5.2); Alkaline Phosphatase 71 U/L (40-130); Aspartate Amino Transferase 21 U/L (0-40); Blood Urea Nitrogen 20 mg/dL (8-23); Calcium 9.4 mg/dL (8.5-10.5); Carbon Dioxide 25 mmol/L (22-29); Chloride 103 mmol/L (98-107); Globulin 3.1 g/dL (1.3-4.6); Glomerular Filtration Rate 74.5 mL/min (90-130); Glucose 120 mg/dL (65-115); Osmolality Calculated 288 mOsm/kg (285-295); Sodium 137 mmol/L (136-145); Thyroid Stimulating Hormone 1.41 uIU/mL (0.27-4.20); Total Bilirubin 0.6 mg/dL (0.15-1.2); Total Protein 7.2 g/dL (6.6-8.7)
[2023-01-15 10:00] LABS: Anion Gap 13.6 (5-19); Potassium 4.6 mmol/L (3.5-5.1)
[2023-01-15] MEDS: sodium chloride 0.9% 250 ML 75 ML IV (11:45)
[2023-01-15] MEDS: nivolumab 240 MG in sodium chloride 0.9% 250 ML 548 MG IV (11:53)
[2023-01-15 12:40] VITALS: BP 149/91; PULSE 50; RESP 18; TEMP 36.8; O2SAT 98
[2023-01-29 09:23] LABS: Basophils % 0.7 %; Eosinophils # 0.1 10^3/uL (0.0-0.8); Eosinophils % 2.3 %; Hematocrit 43.2 % (42.0-52.0); Hemoglobin 14.2 g/dL (11.7-16.6); Lymphocytes # 1.8 10^3/uL (0.8-4.8); Lymphocytes % 31.8 %; Mean Corpuscular HGB Conc 32.9 g/dL (30.0-36.0); Mean Corpuscular Volume 88.2 fl (80-94); Mean Platelet Volume 9.9 fL (7.4-10.4); Monocytes # 0.6 10^3/uL (0.2-0.9); Monocytes % 9.9 %; Neutrophils # 3.05 10^3/uL (1.8-7.7); Neutrophils % 54.9 %; Nucleated Red Blood Cells % 0 %; Platelet Count 198 10^3/cmm (130-400); Red Cell Distribution Width 13.1 % (12.1-15.1); White Blood Count 5.6 10^3/uL (4.0-10.0)
[2023-01-29 11:25] LABS: Alanine Aminotransferase 20 U/L (0-41); Alkaline Phosphatase 65 U/L (40-130); Anion Gap 13.1 (5-19); Aspartate Amino Transferase 17 U/L (0-40); Blood Urea Nitrogen 19 mg/dL (8-23); Calcium 8.5 mg/dL (8.5-10.5); Carbon Dioxide 25 mmol/L (22-29); Chloride 105 mmol/L (98-107); Globulin 2.4 g/dL (1.3-4.6); Glomerular Filtration Rate 96.4 mL/min (90-130); Glucose 109 mg/dL (65-115); Osmolality Calculated 291 mOsm/kg (285-295); Potassium 4.1 mmol/L (3.5-5.1); Sodium 139 mmol/L (136-145); Thyroid Stimulating Hormone 1.33 uIU/mL (0.27-4.20); Total Bilirubin 0.5 mg/dL (0.15-1.2); Total Protein 6.4 g/dL (6.6-8.7)
[2023-01-29] MEDS: nivolumab 240 MG in sodium chloride 0.9% 250 ML 548 MG IV (12:18)
[2023-01-29 12:54] VITALS: BP 131/81; PULSE 54; RESP 16; TEMP 36.7; O2SAT 96
== END 2023-01-29 23:59 | disposition home or self-care (01) ==
PROVIDERS: Nurse Practitioner Family; PCP Family Medicine; Visit Provider Internal Medicine Hematology & Oncology
DX: Z51.12 Encounter for antineoplastic immunotherapy (principal); C64.2 Malignant neoplasm of left kidney, except renal pelvis; C77.8 Secondary and unspecified malignant neoplasm of lymph nodes of multiple regions; Z79.899 Other long term (current) drug therapy; C79.72 Secondary malignant neoplasm of left adrenal gland; C79.89 Secondary malignant neoplasm of other specified sites
CPT/HCPCS: 80053; 84443; 85025; 96413; 99214; J7050; J9299

== ENCOUNTER 2023-02-26 10:00 | Oncology outpatient (recurring) (ONCR) | payer MEDICARE, OTHER, SELFPAY ==
[2023-02-12 09:52] LABS: Basophils % 0.5 %; Eosinophils # 0.2 10^3/uL (0.0-0.8); Eosinophils % 2.5 %; Hematocrit 44.1 % (42.0-52.0); Hemoglobin 14.4 g/dL (11.7-16.6); Lymphocytes # 1.7 10^3/uL (0.8-4.8); Lymphocytes % 29.3 %; Mean Corpuscular HGB Conc 32.7 g/dL (30.0-36.0); Mean Corpuscular Hemoglobin 29.1 pg (28.0-34.0); Mean Corpuscular Volume 89.1 fl (80-94); Mean Platelet Volume 9.8 fL (7.4-10.4); Monocytes # 0.5 10^3/uL (0.2-0.9); Monocytes % 8.3 %; Neutrophils % 59.1 %; Nucleated Red Blood Cells % 0 %; Platelet Count 205 10^3/cmm (130-400); Red Blood Count 4.95 10^6/uL (4.1-5.3); Red Cell Distribution Width 13.2 % (12.1-15.1); White Blood Count 5.9 10^3/uL (4.0-10.0)
[2023-02-12 09:58] VITALS: BMI 35.6
[2023-02-12 09:59] VITALS: BP 128/78; PULSE 67; RESP 18; TEMP 36.2; O2SAT 96
[2023-02-12 10:06] LABS: Alanine Aminotransferase 24 U/L (0-41); Albumin Level 4.2 g/dL (3.5-5.2); Alkaline Phosphatase 68 U/L (40-130); Aspartate Amino Transferase 25 U/L (0-40); Blood Urea Nitrogen 19 mg/dL (8-23); Calcium 9.3 mg/dL (8.5-10.5); Carbon Dioxide 26 mmol/L (22-29); Chloride 102 mmol/L (98-107); Globulin 2.8 g/dL (1.3-4.6); Glomerular Filtration Rate 74.5 mL/min (90-130); Glucose 132 mg/dL (65-115); Osmolality Calculated 290 mOsm/kg (285-295); Sodium 138 mmol/L (136-145); Total Bilirubin 0.6 mg/dL (0.15-1.2)
[2023-02-12 10:10] LABS: Anion Gap 14.3 (5-19); Potassium 4.3 mmol/L (3.5-5.1)
[2023-02-12] MEDS: nivolumab 240 MG in sodium chloride 0.9% 250 ML 548 MG IV (11:50)
[2023-02-12 12:36] VITALS: BP 138/77; PULSE 62; RESP 18; TEMP 35.9; O2SAT 96
[2023-02-26 10:18] VITALS: BMI 35.4
[2023-02-26 10:18] LABS: Basophils % 0.5 %; Eosinophils # 0.1 10^3/uL (0.0-0.8); Eosinophils % 2.1 %; Hematocrit 43.8 % (42.0-52.0); Hemoglobin 14.2 g/dL (11.7-16.6); Lymphocytes # 1.9 10^3/uL (0.8-4.8); Lymphocytes % 33.6 %; Mean Corpuscular HGB Conc 32.4 g/dL (30.0-36.0); Mean Corpuscular Hemoglobin 29.3 pg (28.0-34.0); Mean Corpuscular Volume 90.3 fl (80-94); Mean Platelet Volume 9.7 fL (7.4-10.4); Monocytes # 0.7 10^3/uL (0.2-0.9); Monocytes % 11.4 %; Neutrophils # 2.97 10^3/uL (1.8-7.7); Neutrophils % 52.2 %; Nucleated Red Blood Cells % 0 %; Platelet Count 211 10^3/cmm (130-400); Red Blood Count 4.85 10^6/uL (4.1-5.3); Red Cell Distribution Width 12.9 % (12.1-15.1); White Blood Count 5.7 10^3/uL (4.0-10.0)
[2023-02-26 10:24] VITALS: BP 126/73; PULSE 65; RESP 16; TEMP 36.7; O2SAT 95
[2023-02-26 10:43] LABS: Alanine Aminotransferase 20 U/L (0-41); Albumin Level 4.3 g/dL (3.5-5.2); Alkaline Phosphatase 76 U/L (40-130); Anion Gap 13.5 (5-19); Aspartate Amino Transferase 23 U/L (0-40); Blood Urea Nitrogen 14 mg/dL (8-23); Calcium 9.5 mg/dL (8.5-10.5); Carbon Dioxide 26 mmol/L (22-29); Chloride 100 mmol/L (98-107); Globulin 2.8 g/dL (1.3-4.6); Glomerular Filtration Rate 84.2 mL/min (90-130); Glucose 101 mg/dL (65-115); Osmolality Calculated 281 mOsm/kg (285-295); Potassium 4.5 mmol/L (3.5-5.1); Sodium 135 mmol/L (136-145); Thyroid Stimulating Hormone 1.35 uIU/mL (0.27-4.20); Total Bilirubin 0.6 mg/dL (0.15-1.2); Total Protein 7.1 g/dL (6.6-8.7)
[2023-02-26] MEDS: nivolumab 240 MG in sodium chloride 0.9% 250 ML 548 MG IV (12:58)
[2023-02-26 13:40] VITALS: BP 128/80; PULSE 57; RESP 18; TEMP 36; O2SAT 96
== END 2023-02-26 23:59 | disposition home or self-care (01) ==
PROVIDERS: Nurse Practitioner Family; PCP Family Medicine; Visit Provider Internal Medicine Hematology & Oncology
DX: Z51.12 Encounter for antineoplastic immunotherapy (principal); C64.2 Malignant neoplasm of left kidney, except renal pelvis; C79.72 Secondary malignant neoplasm of left adrenal gland; Z79.899 Other long term (current) drug therapy; C79.51 Secondary malignant neoplasm of bone; C79.89 Secondary malignant neoplasm of other specified sites; Z87.891 Personal history of nicotine dependence
CPT/HCPCS: 80053; 84443; 85025; 96413; 99214; J7050; J9299

== ENCOUNTER 2023-03-22 05:52 | Outpatient (CLI) | payer MEDICARE, OTHER, SELFPAY ==
--- NOTE | 2023-03-22 09:30 | PETR_ITS ---
PROCEDURE INFORMATION: Exam: PET/CT Skull Base to Mid-thigh Exam date and time: 03/22/2023 12:09 PM Age: 67 years old Clinical indication: Clear cell renal cell carcinoma in the left kidney. Left nephrectomy in 2019. Follow-up oncological assessment. LABS AND CLINICAL REPORTS: Glucose: 96 mg/dl Treatment strategy for malignancy (PET staging): Restaging (PS) TECHNIQUE: Imaging protocol: Following at least four-hour fasting and following the injection of radiopharmaceutical, low dose CT images were obtained. Then, PET images were obtained. Attenuation corrected images were constructed using the CT scan. Fused images of PET and CT were reviewed. The standardized uptake values (SUV) reported below are maximum values within a region of interest, expressed in gm/ml. Exam includes orbital meatal line to mid-thigh. Radiopharmaceutical: 14.91 mCi F-18 FDG (Fluorodeoxyglucose), IV. Time of imaging post radiopharmaceutical administration: 47.5 minutes. Injection site: Left antecubital vein. COMPARISON: PET/CT 07/13/2022. FINDINGS: Brain: Visualized brain has normal physiologic uptake. Pharynx: No abnormal uptake. Larynx: No abnormal uptake. Lungs, pleura and trachea: No abnormal uptake. Heart: Normal physiologic uptake. Mediastinal space: No abnormal uptake. Liver: No abnormal uptake. Gallbladder and bile ducts: No abnormal uptake. Pancreas: No abnormal uptake. Spleen: A metastasis in the central spleen is larger and more FDG avid. It is 5.0 x 3.1 by 4.8 cm (previously 3.6 x 2.8 x 3.9 cm by my measurements) Its SUVmax is 10.7 (previously 9.2). Adrenal glands: At the superior aspect of the left adrenal bed (probably adrenal), locally recurrent cancer is larger and more FDG avid. It is 3.4 x 2.7 x 3.2 cm (previously 2.2 x 3.5 x 4.0 cm). Its SUVmax is 6.7 (previously 5.3). Kidneys and ureters: At the inferior aspect of the left renal bed, contiguous locally recurrent cancer is larger and more FDG avid. It is 1.3 x 2.7 x 1.8 cm (previously 1.3 x 2.4 x 1.6 cm). Its SUVmax is 6.7 (previously 4.7). There is normal excretion from the right kidney. Stomach and bowel: Diffuse increased gastric uptake has an SUV max of 5.8 (previously 7.4). it is probably physiologic or inflammatory. Bowel activity is physiologic. Intraperitoneal and retroperitoneal spaces: Two small retroperitoneal metastasis, medial and superior to the spleen, are 4.2 and 0.8 cm (previously 0.9 and 0.5 cm) (axial images 79 and 82). They were not described in the previous PET/CT report because they were inconspicuous. They have SUVs max of 4.5 and 3.3 (previously 2.9 and 2.0). Vasculature: No abnormal uptake. Lymph nodes: No abnormal uptake. No lymphadenopathy in the head, neck, chest, abdomen, pelvis or extremities. Bones/joints: No metabolically active areas. Mild/moderate thoracic spinal degenerative changes. Soft tissues: No metabolically active areas. PET/PET [facility] SUBSEQ [id number] IMPRESSION: 1. At the superior aspect of the left renal bed (probably adrenal), locally recurrent cancer is larger and more FDG avid. Its SUVmax is 6.7 (previously 5.3). 2. At the inferior aspect of the left renal bed, contiguous locally recurrent cancer is larger and more FDG avid. Its SUVmax is 6.7 (previously 4.7). 3. A metastasis in the central spleen is larger and more FDG avid. Its SUVmax is 10.7 (previously 9.2). 4. Two small retroperitoneal metastasis medial and superior to the spleen are larger and more FDG avid. They have SUVs max of 4.5 and 3.3 (previously 2.9 and 2.0).
== END 2023-03-22 05:53 | disposition home or self-care (01) ==
LOC: RAD 03-24 05:52
PROVIDERS: PCP Family Medicine; Visit Provider Internal Medicine Hematology & Oncology
DX: C79.89 Secondary malignant neoplasm of other specified sites (principal)
CPT/HCPCS: 78815; A9552

== ENCOUNTER 2023-03-27 10:00 | Oncology outpatient (recurring) (ONCR) | payer MEDICARE, OTHER, SELFPAY ==
[2023-03-13 09:36] VITALS: BP 148/93; PULSE 42; RESP 16; TEMP 36.6; O2SAT 98; BMI 36.0
[2023-03-13 09:52] LABS: Basophils % 0.7 %; Eosinophils # 0.1 10^3/uL (0.0-0.8); Eosinophils % 2.6 %; Hematocrit 44.2 % (42.0-52.0); Lymphocytes # 1.6 10^3/uL (0.8-4.8); Lymphocytes % 29.9 %; Mean Corpuscular HGB Conc 31.7 g/dL (30.0-36.0); Mean Corpuscular Hemoglobin 28.8 pg (28.0-34.0); Mean Corpuscular Volume 90.9 fl (80-94); Mean Platelet Volume 9.6 fL (7.4-10.4); Monocytes # 0.6 10^3/uL (0.2-0.9); Monocytes % 11.4 %; Neutrophils # 2.94 10^3/uL (1.8-7.7); Nucleated Red Blood Cells % 0 %; Platelet Count 195 10^3/cmm (130-400); Red Blood Count 4.86 10^6/uL (4.1-5.3); Red Cell Distribution Width 12.8 % (12.1-15.1); White Blood Count 5.4 10^3/uL (4.0-10.0)
[2023-03-13 10:21] LABS: Alanine Aminotransferase 18 U/L (0-41); Alkaline Phosphatase 71 U/L (40-130); Aspartate Amino Transferase 17 U/L (0-40); Blood Urea Nitrogen 16 mg/dL (8-23); Calcium 9.3 mg/dL (8.5-10.5); Carbon Dioxide 28 mmol/L (22-29); Chloride 102 mmol/L (98-107); Globulin 2.8 g/dL (1.3-4.6); Glomerular Filtration Rate 66.8 mL/min (90-130); Glucose 134 mg/dL (65-115); Osmolality Calculated 291 mOsm/kg (285-295); Sodium 139 mmol/L (136-145); Thyroid Stimulating Hormone 1.52 uIU/mL (0.27-4.20); Total Bilirubin 0.3 mg/dL (0.15-1.2); Total Protein 6.8 g/dL (6.6-8.7)
[2023-03-13] MEDS: nivolumab 240 MG in sodium chloride 0.9% 250 ML 548 MG IV (11:43)
[2023-03-13 12:25] VITALS: BP 146/78; PULSE 52; RESP 16; TEMP 36.7; O2SAT 97
[2023-03-27 10:21] VITALS: BP 144/82; PULSE 50; RESP 18; TEMP 36.4; O2SAT 96
[2023-03-27 10:33] LABS: Basophils % 0.4 %; Eosinophils # 0.2 10^3/uL (0.0-0.8); Eosinophils % 2.6 %; Hematocrit 45.7 % (42.0-52.0); Hemoglobin 14.9 g/dL (11.7-16.6); Lymphocytes # 1.9 10^3/uL (0.8-4.8); Lymphocytes % 27.8 %; Mean Corpuscular HGB Conc 32.6 g/dL (30.0-36.0); Mean Corpuscular Hemoglobin 29.3 pg (28.0-34.0); Mean Platelet Volume 9.6 fL (7.4-10.4); Monocytes # 0.7 10^3/uL (0.2-0.9); Monocytes % 10.1 %; Neutrophils # 4.03 10^3/uL (1.8-7.7); Neutrophils % 58.8 %; Nucleated Red Blood Cells % 0 %; Platelet Count 193 10^3/cmm (130-400); Red Blood Count 5.08 10^6/uL (4.1-5.3); Red Cell Distribution Width 12.7 % (12.1-15.1); White Blood Count 6.9 10^3/uL (4.0-10.0)
[2023-03-27 10:55] LABS: Alanine Aminotransferase 20 U/L (0-41); Albumin Level 4.3 g/dL (3.5-5.2); Alkaline Phosphatase 72 U/L (40-130); Blood Urea Nitrogen 17 mg/dL (8-23); Calcium 9.4 mg/dL (8.5-10.5); Carbon Dioxide 26 mmol/L (22-29); Chloride 99 mmol/L (98-107); Globulin 2.9 g/dL (1.3-4.6); Glomerular Filtration Rate 84.2 mL/min (90-130); Glucose 95 mg/dL (65-115); Osmolality Calculated 279 mOsm/kg (285-295); Sodium 134 mmol/L (136-145); Total Bilirubin 0.6 mg/dL (0.15-1.2); Total Protein 7.2 g/dL (6.6-8.7)
[2023-03-27 10:57] LABS: Aspartate Amino Transferase 23 U/L (0-40)
[2023-03-27 11:19] LABS: Thyroid Stimulating Hormone 1.25 uIU/mL (0.27-4.20)
[2023-03-27] MEDS: nivolumab 240 MG in sodium chloride 0.9% 250 ML 548 MG IV (12:33)
[2023-03-27 13:25] VITALS: BP 139/78; PULSE 62; RESP 16; TEMP 36.4; O2SAT 97
== END 2023-03-27 23:59 | disposition home or self-care (01) ==
PROVIDERS: Nurse Practitioner Family; PCP Family Medicine; Visit Provider Internal Medicine Hematology & Oncology
DX: Z51.12 Encounter for antineoplastic immunotherapy (principal); C64.2 Malignant neoplasm of left kidney, except renal pelvis; C77.8 Secondary and unspecified malignant neoplasm of lymph nodes of multiple regions; C79.89 Secondary malignant neoplasm of other specified sites; Z90.5 Acquired absence of kidney; Z79.899 Other long term (current) drug therapy
CPT/HCPCS: 80053; 84443; 85025; 96413; 99214; J7050; J9299

== ENCOUNTER → 2023-04-22 10:01 | Outpatient (BNVA) | payer MEDICARE, OTHER, SELFPAY | PROVIDERS: PCP Family Medicine; Visit Provider Family Medicine | DX: I10 Essential (primary) hypertension (principal); E78.5 Hyperlipidemia, unspecified; E83.52 Hypercalcemia | CPT/HCPCS: 80061; 82306; 83036; 84443 ==

== ENCOUNTER 2023-05-01 10:00 | Oncology outpatient (recurring) (ONCR) | payer MEDICARE, OTHER, SELFPAY ==
[2023-04-17 10:01] VITALS: BP 157/86; PULSE 62; RESP 18; TEMP 36.6; O2SAT 98
[2023-04-17 10:43] LABS: Basophils % 0.6 %; Eosinophils # 0.1 10^3/uL (0.0-0.8); Eosinophils % 2.4 %; Hematocrit 46.3 % (42.0-52.0); Hemoglobin 14.7 g/dL (11.7-16.6); Lymphocytes # 1.6 10^3/uL (0.8-4.8); Lymphocytes % 29.4 %; Mean Corpuscular HGB Conc 31.7 g/dL (30.0-36.0); Mean Corpuscular Hemoglobin 28.9 pg (28.0-34.0); Mean Corpuscular Volume 91.1 fl (80-94); Mean Platelet Volume 10.5 fL (7.4-10.4); Monocytes # 0.5 10^3/uL (0.2-0.9); Neutrophils # 3.11 10^3/uL (1.8-7.7); Neutrophils % 58.2 %; Nucleated Red Blood Cells % 0 %; Platelet Count 188 10^3/cmm (130-400); Red Blood Count 5.08 10^6/uL (4.1-5.3); Red Cell Distribution Width 12.6 % (12.1-15.1); White Blood Count 5.3 10^3/uL (4.0-10.0)
[2023-04-17 11:16] LABS: Alanine Aminotransferase 23 U/L (0-41); Albumin Level 4.2 g/dL (3.5-5.2); Alkaline Phosphatase 69 U/L (40-130); Aspartate Amino Transferase 21 U/L (0-40); Blood Urea Nitrogen 17 mg/dL (8-23); Calcium 9.1 mg/dL (8.5-10.5); Carbon Dioxide 27 mmol/L (22-29); Chloride 99 mmol/L (98-107); Globulin 2.8 g/dL (1.3-4.6); Glomerular Filtration Rate 74.5 mL/min (90-130); Glucose 128 mg/dL (65-115); Osmolality Calculated 281 mOsm/kg (285-295); Sodium 134 mmol/L (136-145); Thyroid Stimulating Hormone 1.27 uIU/mL (0.27-4.20); Total Bilirubin 0.5 mg/dL (0.15-1.2)
[2023-04-17 11:17] LABS: Anion Gap 12.7 (5-19); Potassium 4.7 mmol/L (3.5-5.1)
[2023-04-17] MEDS: nivolumab 240 MG in sodium chloride 0.9% 250 ML 548 MG IV (13:06)
[2023-04-17 13:57] VITALS: BP 138/85; PULSE 56; RESP 18; TEMP 36.6; O2SAT 95
[2023-05-01 10:04] VITALS: BP 132/85; PULSE 73; RESP 18; TEMP 36.8; O2SAT 96; BMI 35.7
[2023-05-01 10:23] LABS: Basophils % 0.6 %; Eosinophils # 0.1 10^3/uL (0.0-0.8); Eosinophils % 2.1 %; Hematocrit 44.5 % (42.0-52.0); Hemoglobin 14.6 g/dL (11.7-16.6); Lymphocytes # 1.5 10^3/uL (0.8-4.8); Lymphocytes % 28.8 %; Mean Corpuscular HGB Conc 32.8 g/dL (30.0-36.0); Mean Corpuscular Hemoglobin 29.7 pg (28.0-34.0); Mean Corpuscular Volume 90.6 fl (80-94); Mean Platelet Volume 9.2 fL (7.4-10.4); Monocytes # 0.5 10^3/uL (0.2-0.9); Monocytes % 9.6 %; Neutrophils # 3.06 10^3/uL (1.8-7.7); Neutrophils % 58.7 %; Nucleated Red Blood Cells % 0 %; Platelet Count 192 10^3/cmm (130-400); Red Blood Count 4.91 10^6/uL (4.1-5.3); Red Cell Distribution Width 12.9 % (12.1-15.1); White Blood Count 5.2 10^3/uL (4.0-10.0)
[2023-05-01 10:50] LABS: Alanine Aminotransferase 20 U/L (0-41); Albumin Level 4.3 g/dL (3.5-5.2); Alkaline Phosphatase 68 U/L (40-130); Anion Gap 15.5 (5-19); Aspartate Amino Transferase 19 U/L (0-40); Blood Urea Nitrogen 20 mg/dL (8-23); Calcium 9.1 mg/dL (8.5-10.5); Carbon Dioxide 26 mmol/L (22-29); Chloride 103 mmol/L (98-107); Globulin 2.2 g/dL (1.3-4.6); Glomerular Filtration Rate 60.4 mL/min (90-130); Glucose 96 mg/dL (65-115); Osmolality Calculated 292 mOsm/kg (285-295); Potassium 4.5 mmol/L (3.5-5.1); Sodium 140 mmol/L (136-145); Total Bilirubin 0.6 mg/dL (0.15-1.2); Total Protein 6.5 g/dL (6.6-8.7)
[2023-05-01] MEDS: nivolumab 240 MG in sodium chloride 0.9% 250 ML 548 MG IV (12:19)
[2023-05-01] MEDS: sodium chloride 0.9% 250 ML 75 ML IV (13:10)
[2023-05-01 13:25] VITALS: BP 134/85; PULSE 82; RESP 16; TEMP 36.4; O2SAT 95
== END 2023-05-01 23:59 | disposition home or self-care (01) ==
PROVIDERS: Nurse Practitioner Family; PCP Family Medicine; Visit Provider Internal Medicine Hematology & Oncology
DX: Z51.12 Encounter for antineoplastic immunotherapy (principal); C64.2 Malignant neoplasm of left kidney, except renal pelvis; C79.89 Secondary malignant neoplasm of other specified sites; Z79.899 Other long term (current) drug therapy; Z87.891 Personal history of nicotine dependence
CPT/HCPCS: 80053; 84443; 85025; 96413; 99214; J7050; J9299

== ENCOUNTER 2023-05-29 09:15 | Oncology outpatient (recurring) (ONCR) | payer MEDICARE, OTHER, SELFPAY ==
[2023-05-15 09:01] VITALS: BP 163/92; PULSE 71; RESP 18; TEMP 36.9; O2SAT 96
[2023-05-15 09:03] VITALS: BMI 35.9
[2023-05-15 09:25] LABS: Basophils % 0.5 %; Eosinophils # 0.1 10^3/uL (0.0-0.8); Eosinophils % 1.9 %; Hematocrit 46.5 % (42.0-52.0); Hemoglobin 15.1 g/dL (11.7-16.6); Lymphocytes # 1.5 10^3/uL (0.8-4.8); Mean Corpuscular HGB Conc 32.5 g/dL (30.0-36.0); Mean Corpuscular Hemoglobin 29.4 pg (28.0-34.0); Mean Corpuscular Volume 90.6 fl (80-94); Mean Platelet Volume 9.8 fL (7.4-10.4); Monocytes # 0.6 10^3/uL (0.2-0.9); Monocytes % 10.2 %; Neutrophils # 3.55 10^3/uL (1.8-7.7); Neutrophils % 61.1 %; Nucleated Red Blood Cells % 0 %; Platelet Count 205 10^3/cmm (130-400); Red Blood Count 5.13 10^6/uL (4.1-5.3); Red Cell Distribution Width 12.7 % (12.1-15.1); White Blood Count 5.8 10^3/uL (4.0-10.0)
[2023-05-15 10:43] LABS: Alanine Aminotransferase 21 U/L (0-41); Albumin Level 4.3 g/dL (3.5-5.2); Alkaline Phosphatase 73 U/L (40-130); Anion Gap 14.7 (5-19); Aspartate Amino Transferase 19 U/L (0-40); Blood Urea Nitrogen 18 mg/dL (8-23); Calcium 9.2 mg/dL (8.5-10.5); Carbon Dioxide 27 mmol/L (22-29); Chloride 103 mmol/L (98-107); Globulin 2.7 g/dL (1.3-4.6); Glomerular Filtration Rate 66.6 mL/min (90-130); Glucose 97 mg/dL (65-115); Osmolality Calculated 292 mOsm/kg (285-295); Potassium 4.7 mmol/L (3.5-5.1); Sodium 140 mmol/L (136-145); Total Bilirubin 0.3 mg/dL (0.15-1.2)
[2023-05-15] MEDS: nivolumab 240 MG in sodium chloride 0.9% 250 ML 548 MG IV (11:55)
[2023-05-15 12:36] VITALS: BP 147/90; PULSE 66; RESP 16; TEMP 36.5; O2SAT 95
[2023-05-29 09:06] VITALS: BMI 36.1
[2023-05-29 10:08] LABS: Basophils % 0.6 %; Eosinophils # 0.1 10^3/uL (0.0-0.8); Lymphocytes # 1.4 10^3/uL (0.8-4.8); Lymphocytes % 27.8 %; Mean Corpuscular HGB Conc 32.5 g/dL (30-55); Mean Corpuscular Hemoglobin 29.2 pg (27-33); Mean Platelet Volume 9.5 fL (7.4-10.4); Monocytes # 0.5 10^3/uL (0.2-0.9); Monocytes % 8.8 %; Neutrophils # 3.09 10^3/uL (1.8-7.7); Neutrophils % 60.6 %; Nucleated Red Blood Cells % 0 %; Platelet Count 187 10^3/cmm (157-399); Red Blood Count 4.89 10^6/uL (3.85-5.65); Red Cell Distribution Width 12.8 % (12.1-15.1)
[2023-05-29 10:30] LABS: Alanine Aminotransferase 19 U/L (0-41); Albumin Level 4.4 g/dL (3.5-5.2); Alkaline Phosphatase 65 U/L (40-130); Anion Gap 13.3 (5-19); Aspartate Amino Transferase 17 U/L (0-40); Blood Urea Nitrogen 17 mg/dL (8-23); Carbon Dioxide 27 mmol/L (22-29); Chloride 102 mmol/L (98-107); Globulin 2.5 g/dL (1.3-4.6); Glomerular Filtration Rate 83.9 mL/min (90-130); Glucose 139 mg/dL (65-115); Osmolality Calculated 290 mOsm/kg (285-295); Potassium 4.3 mmol/L (3.5-5.1); Sodium 138 mmol/L (136-145); Thyroid Stimulating Hormone 1.33 uIU/mL (0.27-4.20); Total Bilirubin 0.4 mg/dL (0.15-1.2); Total Protein 6.9 g/dL (6.6-8.7)
[2023-05-29 10:37] VITALS: BP 120/81; PULSE 55; TEMP 36.9; O2SAT 93
[2023-05-29] MEDS: nivolumab 240 MG in sodium chloride 0.9% 250 ML 548 MG IV (11:53)
[2023-05-29 12:35] VITALS: BP 150/91; PULSE 48; TEMP 36.7; O2SAT 94
== END 2023-05-29 23:59 | disposition home or self-care (01) ==
PROVIDERS: Nurse Practitioner Family; PCP Family Medicine; Visit Provider Internal Medicine Medical Oncology
DX: Z51.12 Encounter for antineoplastic immunotherapy (principal); C64.2 Malignant neoplasm of left kidney, except renal pelvis; Z79.899 Other long term (current) drug therapy
CPT/HCPCS: 80053; 84443; 85025; 96413; 99214; J7050; J9299

== ENCOUNTER 2023-06-26 08:35 | Oncology outpatient (recurring) (ONCR) | payer MEDICARE, OTHER, SELFPAY ==
[2023-06-12 09:30] VITALS: BP 142/82; PULSE 68; RESP 18; TEMP 36.3; O2SAT 95; BMI 35.7
[2023-06-12 09:47] LABS: Basophils % 0.5 %; Eosinophils # 0.1 10^3/uL (0.0-0.8); Eosinophils % 1.9 %; Hematocrit 43.4 % (37-53); Lymphocytes # 1.5 10^3/uL (0.8-4.8); Lymphocytes % 25.5 %; Mean Corpuscular HGB Conc 32.9 g/dL (30-55); Mean Corpuscular Hemoglobin 29.5 pg (27-33); Mean Corpuscular Volume 89.5 fl (82-101); Mean Platelet Volume 9.5 fL (7.4-10.4); Monocytes # 0.5 10^3/uL (0.2-0.9); Neutrophils # 3.73 10^3/uL (1.8-7.7); Neutrophils % 62.9 %; Nucleated Red Blood Cells % 0 %; Platelet Count 195 10^3/cmm (157-399); Red Blood Count 4.85 10^6/uL (3.85-5.65); Red Cell Distribution Width 12.9 % (12.1-15.1); White Blood Count 5.92 10^3/uL (3.29-11.43)
[2023-06-12 10:01] LABS: Alanine Aminotransferase 20 U/L (0-41); Albumin Level 4.4 g/dL (3.5-5.2); Alkaline Phosphatase 67 U/L (40-130); Anion Gap 13.4 (5-19); Aspartate Amino Transferase 21 U/L (0-40); Blood Urea Nitrogen 22 mg/dL (8-23); Carbon Dioxide 26 mmol/L (22-29); Chloride 102 mmol/L (98-107); Globulin 2.5 g/dL (1.3-4.6); Glomerular Filtration Rate 74.3 mL/min (90-130); Glucose 133 mg/dL (65-115); Osmolality Calculated 289 mOsm/kg (285-295); Potassium 4.4 mmol/L (3.5-5.1); Sodium 137 mmol/L (136-145); Total Bilirubin 0.5 mg/dL (0.15-1.2); Total Protein 6.9 g/dL (6.6-8.7)
[2023-06-12] MEDS: nivolumab 240 MG in sodium chloride 0.9% 250 ML 548 MG IV (11:29)
[2023-06-12 12:35] VITALS: BP 140/82; PULSE 50; RESP 16; TEMP 36.4; O2SAT 96
[2023-06-26 09:18] LABS: Basophils % 0.4 %; Eosinophils # 0.1 10^3/uL (0.0-0.8); Eosinophils % 2.5 %; Hematocrit 43.7 % (37-53); Lymphocytes # 1.5 10^3/uL (0.8-4.8); Lymphocytes % 29.2 %; Mean Corpuscular HGB Conc 32.3 g/dL (30-55); Mean Corpuscular Hemoglobin 29.3 pg (27-33); Mean Corpuscular Volume 90.7 fl (82-101); Mean Platelet Volume 9.7 fL (7.4-10.4); Monocytes # 0.6 10^3/uL (0.2-0.9); Monocytes % 12.2 %; Neutrophils # 2.88 10^3/uL (1.8-7.7); Neutrophils % 55.5 %; Nucleated Red Blood Cells % 0 %; Platelet Count 187 10^3/cmm (157-399); Red Blood Count 4.82 10^6/uL (3.85-5.65); White Blood Count 5.18 10^3/uL (3.29-11.43)
[2023-06-26 09:53] LABS: Alanine Aminotransferase 21 U/L (0-41); Albumin Level 4.1 g/dL (3.5-5.2); Alkaline Phosphatase 65 U/L (40-130); Blood Urea Nitrogen 17 mg/dL (8-23); Carbon Dioxide 28 mmol/L (22-29); Chloride 103 mmol/L (98-107); Globulin 2.8 g/dL (1.3-4.6); Glomerular Filtration Rate 66.6 mL/min (90-130); Glucose 115 mg/dL (65-115); Osmolality Calculated 290 mOsm/kg (285-295); Sodium 139 mmol/L (136-145); Thyroid Stimulating Hormone 1.77 uIU/mL (0.27-4.20); Total Bilirubin 0.4 mg/dL (0.15-1.2); Total Protein 6.9 g/dL (6.6-8.7)
[2023-06-26 09:56] LABS: Anion Gap 12.9 (5-19); Aspartate Amino Transferase 24 U/L (0-40); Potassium 4.9 mmol/L (3.5-5.1)
[2023-06-26] MEDS: nivolumab 240 MG in sodium chloride 0.9% 250 ML 548 MG IV (11:42)
[2023-06-26 12:35] VITALS: BP 164/91; PULSE 55; RESP 17; TEMP 36.3; O2SAT 99
== END 2023-06-26 23:59 | disposition home or self-care (01) ==
PROVIDERS: Nurse Practitioner Family; PCP Family Medicine; Visit Provider Internal Medicine Medical Oncology
DX: C64.2 Malignant neoplasm of left kidney, except renal pelvis; Z79.899 Other long term (current) drug therapy; Z51.11 Encounter for antineoplastic chemotherapy; Z53.9 Procedure and treatment not carried out, unspecified reason
CPT/HCPCS: 80053; 84443; 85025; 96413; 99213; 99215; J7050; J9299

== ENCOUNTER 2023-07-08 14:11 | Outpatient (CLI) | payer MEDICARE, OTHER, SELFPAY ==
--- NOTE | 2023-07-08 10:30 | PETR_ITS ---
PROCEDURE INFORMATION: Exam: PET/CT Skull Base to Mid-thigh Exam date and time: 07/08/2023 11:22 AM Age: 68 years old Clinical indication: Condition or disease; Primary cancer: Malignant neoplasm of kidney, unspecified laterality, malignant neoplasm of other specified sites; Follow-up oncological assessment; Additional info: Surveillance LABS AND CLINICAL REPORTS: Glucose: 98 mg/dl Treatment strategy for malignancy (PET staging): Restaging (PS) TECHNIQUE: Imaging protocol: Following at least four-hour fasting and following the injection of radiopharmaceutical, low dose CT images were obtained. Then, PET images were obtained. Attenuation corrected images were constructed using the CT scan. Fused images of PET and CT were reviewed. The standardized uptake values (SUV) reported below are maximum values within a region of interest, expressed in gm/ml. Exam includes orbital meatal line to mid-thigh. Radiopharmaceutical: 12.16 mCi F-18 FDG (Fluorodeoxyglucose), IV. Time of imaging post radiopharmaceutical administration: 1 hour Injection site: site [facility]: [facility] [id number] 03/22/2023 12:09 PM FINDINGS: Brain: Visualized brain has normal physiologic uptake. Pharynx: No abnormal uptake. Larynx: No abnormal uptake. Lungs, pleura and trachea: No abnormal uptake. Heart: Normal physiologic uptake. Mediastinal space: No abnormal uptake. Liver: No abnormal uptake. Gallbladder and bile ducts: No abnormal uptake. Pancreas: No abnormal uptake. Spleen: Hypodense mass in the central spleen measuring approximately 5 cm is similar to the previous study. SUV max is 10.3 similar to previous value of 10.7. Adrenal glands: Mass in the left adrenal bed measuring 3.4 x 3.4 cm is unchanged with the previous study when remeasured in the same fashion. SUV maximum is 4.4, decreased from previous value of 6.7. Kidneys and ureters: In the inferior aspect of the left renal bed there is a region of tumor contiguous with the adrenal lesion measuring 2.7 cm with SUV maximum of 3.0, previously 6.7 decreased. Stomach and bowel: Gastric uptake again present with SUV maximum of 7.6 diffusely previously 5.8. This may reflect gastritis. Two small peritoneal metastasis superior and medial to the spleen are again present with similar size. SUV max values are 3.4 previously up to 4.5 in the more medial nodule, which is decreased. Vasculature: No abnormal uptake. Lymph nodes: No abnormal uptake. No lymphadenopathy in the head, neck, chest, abdomen, pelvis, and extremities. Bones/joints: No abnormal uptake in the visualized axial and appendicular skeleton. Soft tissues: Fat containing periumbilical hernia is unchanged. [facility] [id number] IMPRESSION: Findings suggestive of a partial treatment response since the previous exam. Uptake in the left adrenal/renal resection beds is decreased with similar size of tumor on CT. Peritoneal metastasis medial to the spleen are similar in size with decreasing uptake. The uptake in the splenic lesion is stable with stable size. No new site of disease is identified.
== END 2023-07-08 14:12 | disposition home or self-care (01) ==
LOC: RAD 14:11
PROVIDERS: PCP Family Medicine; Visit Provider Nurse Practitioner Family
DX: C64.9 Malignant neoplasm of unspecified kidney, except renal pelvis (principal); C79.89 Secondary malignant neoplasm of other specified sites; C78.6 Secondary malignant neoplasm of retroperitoneum and peritoneum
CPT/HCPCS: 78815; A9552

== ENCOUNTER 2023-07-24 08:30 | Oncology outpatient (recurring) (ONCR) | payer MEDICARE, OTHER, SELFPAY ==
[2023-07-10 09:00] LABS: Basophils % 0.5 %; Eosinophils # 0.1 10^3/uL (0.0-0.8); Eosinophils % 1.7 %; Hematocrit 44.7 % (37-53); Lymphocytes # 1.6 10^3/uL (0.8-4.8); Lymphocytes % 25.8 %; Mean Corpuscular HGB Conc 33.1 g/dL (30-55); Mean Corpuscular Hemoglobin 29.4 pg (27-33); Mean Corpuscular Volume 88.7 fl (82-101); Mean Platelet Volume 9.5 fL (7.4-10.4); Monocytes # 0.6 10^3/uL (0.2-0.9); Monocytes % 9.8 %; Neutrophils # 3.75 10^3/uL (1.8-7.7); Nucleated Red Blood Cells % 0 %; Platelet Count 203 10^3/cmm (157-399); Red Blood Count 5.04 10^6/uL (3.85-5.65); Red Cell Distribution Width 12.9 % (12.1-15.1); White Blood Count 6.04 10^3/uL (3.29-11.43)
[2023-07-10 09:23] VITALS: BP 134/78; PULSE 50; RESP 18; TEMP 36.8; O2SAT 98
[2023-07-10 10:26] LABS: Alanine Aminotransferase 18 U/L (0-41); Albumin Level 4.5 g/dL (3.5-5.2); Alkaline Phosphatase 67 U/L (40-130); Anion Gap 13.5 (5-19); Aspartate Amino Transferase 18 U/L (0-40); Blood Urea Nitrogen 14 mg/dL (8-23); Calcium 9.4 mg/dL (8.5-10.5); Carbon Dioxide 27 mmol/L (22-29); Chloride 101 mmol/L (98-107); Creatinine Clr Calc Pharmacy 86.5092; Globulin 2.7 g/dL (1.3-4.6); Glomerular Filtration Rate 74.3 mL/min (90-130); Glucose 102 mg/dL (65-115); Osmolality Calculated 285 mOsm/kg (285-295); Potassium 4.5 mmol/L (3.5-5.1); Sodium 137 mmol/L (136-145); Thyroid Stimulating Hormone 1.29 uIU/mL (0.27-4.20); Total Bilirubin 0.5 mg/dL (0.15-1.2); Total Protein 7.2 g/dL (6.6-8.7)
[2023-07-10] MEDS: nivolumab 240 MG in sodium chloride 0.9% 250 ML 548 MG IV (11:17)
[2023-07-24 08:42] VITALS: BP 123/75; PULSE 68; RESP 17; TEMP 36.6; O2SAT 95
[2023-07-24 08:43] VITALS: BMI 35.7
[2023-07-24 08:44] LABS: Basophils % 0.6 %; Eosinophils # 0.1 10^3/uL (0.0-0.8); Eosinophils % 2.4 %; Hematocrit 43.4 % (37-53); Lymphocytes # 1.6 10^3/uL (0.8-4.8); Lymphocytes % 30.7 %; Mean Corpuscular HGB Conc 32.9 g/dL (30-55); Mean Corpuscular Hemoglobin 29.6 pg (27-33); Mean Corpuscular Volume 89.9 fl (82-101); Mean Platelet Volume 9.9 fL (7.4-10.4); Monocytes # 0.5 10^3/uL (0.2-0.9); Neutrophils # 3.05 10^3/uL (1.8-7.7); Neutrophils % 56.9 %; Nucleated Red Blood Cells % 0 %; Platelet Count 189 10^3/cmm (157-399); Red Blood Count 4.83 10^6/uL (3.85-5.65); Red Cell Distribution Width 12.6 % (12.1-15.1); White Blood Count 5.35 10^3/uL (3.29-11.43)
[2023-07-24 09:54] LABS: Alanine Aminotransferase 20 U/L (0-41); Albumin Level 4.2 g/dL (3.5-5.2); Alkaline Phosphatase 67 U/L (40-130); Anion Gap 14.1 (5-19); Aspartate Amino Transferase 20 U/L (0-40); Blood Urea Nitrogen 18 mg/dL (8-23); Carbon Dioxide 26 mmol/L (22-29); Chloride 103 mmol/L (98-107); Free T4 Free Thyroxine 1.27 ng/dL (0.82-1.77); Globulin 2.5 g/dL (1.3-4.6); Glomerular Filtration Rate 74.3 mL/min (90-130); Glucose 106 mg/dL (65-115); Osmolality Calculated 290 mOsm/kg (285-295); Potassium 4.1 mmol/L (3.5-5.1); Sodium 139 mmol/L (136-145); T3 Free 2.6 PG/ML (2.0-4.4); Thyroid Stimulating Hormone 1.06 uIU/mL (0.27-4.20); Total Bilirubin 0.5 mg/dL (0.15-1.2); Total Protein 6.7 g/dL (6.6-8.7)
[2023-07-24] MEDS: sodium chloride 0.9% 250 ML 75 ML IV (10:39)
[2023-07-24] MEDS: nivolumab 480 MG in sodium chloride 0.9% 250 ML 596 MG IV (11:04)
[2023-07-24 11:56] VITALS: BP 129/78; PULSE 58; RESP 16; O2SAT 97
== END 2023-07-24 23:59 | disposition home or self-care (01) ==
PROVIDERS: Internal Medicine Medical Oncology; Nurse Practitioner Family; PCP Family Medicine; Visit Provider Nurse Practitioner Family
DX: Z51.12 Encounter for antineoplastic immunotherapy (principal); C64.2 Malignant neoplasm of left kidney, except renal pelvis; Z79.899 Other long term (current) drug therapy; C79.89 Secondary malignant neoplasm of other specified sites
CPT/HCPCS: 80053; 84439; 84443; 84481; 85025; 96413; 99214; 99215; J7050; J9299

== ENCOUNTER 2023-09-04 08:00 | Oncology outpatient (recurring) (ONCR) | payer MEDICARE, OTHER, SELFPAY ==
[2023-08-21 09:41] LABS: Basophils % 0.6 %; Eosinophils # 0.1 10^3/uL (0.0-0.8); Eosinophils % 2.1 %; Hematocrit 43.9 % (37-53); Lymphocytes # 1.7 10^3/uL (0.8-4.8); Lymphocytes % 27.5 %; Mean Corpuscular HGB Conc 32.8 g/dL (30-55); Mean Corpuscular Hemoglobin 29.3 pg (27-33); Mean Corpuscular Volume 89.2 fl (82-101); Mean Platelet Volume 9.8 fL (7.4-10.4); Monocytes # 0.6 10^3/uL (0.2-0.9); Monocytes % 9.6 %; Neutrophils # 3.75 10^3/uL (1.8-7.7); Nucleated Red Blood Cells % 0 %; Platelet Count 193 10^3/cmm (157-399); Red Blood Count 4.92 10^6/uL (3.85-5.65); Red Cell Distribution Width 12.7 % (12.1-15.1); White Blood Count 6.25 10^3/uL (3.29-11.43)
[2023-08-21 10:09] LABS: Alanine Aminotransferase 24 U/L (0-41); Albumin Level 4.2 g/dL (3.5-5.2); Alkaline Phosphatase 72 U/L (40-130); Anion Gap 15.6 (5-19); Aspartate Amino Transferase 19 U/L (0-40); Blood Urea Nitrogen 18 mg/dL (8-23); Calcium 9.2 mg/dL (8.5-10.5); Carbon Dioxide 26 mmol/L (22-29); Chloride 99 mmol/L (98-107); Globulin 2.9 g/dL (1.3-4.6); Glomerular Filtration Rate 74.3 mL/min (90-130); Glucose 107 mg/dL (65-115); Osmolality Calculated 284 mOsm/kg (285-295); Potassium 4.6 mmol/L (3.5-5.1); Sodium 136 mmol/L (136-145); Thyroid Stimulating Hormone 1.38 uIU/mL (0.27-4.20); Total Bilirubin 0.6 mg/dL (0.15-1.2); Total Protein 7.1 g/dL (6.6-8.7)
[2023-08-21] MEDS: nivolumab 240 MG in sodium chloride 0.9% 250 ML 548 MG IV (10:56)
[2023-08-21 11:46] VITALS: BP 157/95; PULSE 51; RESP 16; TEMP 36.5; O2SAT 98
[2023-09-04 08:00] VITALS: BP 154/89; PULSE 52; RESP 18; TEMP 36.6; O2SAT 98
[2023-09-04 08:08] LABS: Basophils % 0.7 %; Eosinophils # 0.1 10^3/uL (0.0-0.8); Hematocrit 43.3 % (37-53); Lymphocytes # 1.5 10^3/uL (0.8-4.8); Lymphocytes % 33.4 %; Mean Corpuscular HGB Conc 32.8 g/dL (30-55); Mean Corpuscular Hemoglobin 29.6 pg (27-33); Mean Corpuscular Volume 90.4 fl (82-101); Mean Platelet Volume 9.6 fL (7.4-10.4); Monocytes # 0.5 10^3/uL (0.2-0.9); Monocytes % 11.5 %; Nucleated Red Blood Cells % 0 %; Platelet Count 191 10^3/cmm (157-399); Red Blood Count 4.79 10^6/uL (3.85-5.65); Red Cell Distribution Width 12.8 % (12.1-15.1); White Blood Count 4.61 10^3/uL (3.29-11.43)
[2023-09-04 08:31] LABS: Alanine Aminotransferase 20 U/L (0-41); Albumin Level 4.2 g/dL (3.5-5.2); Alkaline Phosphatase 64 U/L (40-130); Anion Gap 12.7 (5-19); Aspartate Amino Transferase 20 U/L (0-40); Blood Urea Nitrogen 17 mg/dL (8-23); Calcium 9.4 mg/dL (8.5-10.5); Carbon Dioxide 28 mmol/L (22-29); Chloride 102 mmol/L (98-107); Globulin 2.8 g/dL (1.3-4.6); Glomerular Filtration Rate 74.3 mL/min (90-130); Glucose 109 mg/dL (65-115); Osmolality Calculated 288 mOsm/kg (285-295); Potassium 4.7 mmol/L (3.5-5.1); Sodium 138 mmol/L (136-145); Thyroid Stimulating Hormone 1.34 uIU/mL (0.27-4.20); Total Bilirubin 0.4 mg/dL (0.15-1.2)
[2023-09-04] MEDS: nivolumab 240 MG in sodium chloride 0.9% 250 ML 548 MG IV (10:30)
[2023-09-04 11:15] VITALS: BP 144/98; PULSE 50; TEMP 36.4; O2SAT 99
== END 2023-09-04 23:59 | disposition home or self-care (01) ==
PROVIDERS: Nurse Practitioner Family; PCP Family Medicine; Visit Provider Nurse Practitioner Family
DX: Z51.12 Encounter for antineoplastic immunotherapy (principal); C64.2 Malignant neoplasm of left kidney, except renal pelvis; Z79.899 Other long term (current) drug therapy; C79.89 Secondary malignant neoplasm of other specified sites
CPT/HCPCS: 80053; 84443; 85025; 96413; 99214; J7050; J9299

== ENCOUNTER 2023-10-02 08:07 | Oncology outpatient (recurring) (ONCR) | payer MEDICARE, OTHER, SELFPAY ==
[2023-09-18 09:58] VITALS: BP 142/92; PULSE 59; TEMP 36.8; O2SAT 98
[2023-09-18 10:03] LABS: Basophils % 0.5 %; Eosinophils # 0.1 10^3/uL (0.0-0.8); Eosinophils % 2.4 %; Hematocrit 45.3 % (37-53); Lymphocytes # 1.5 10^3/uL (0.8-4.8); Lymphocytes % 27.2 %; Mean Corpuscular HGB Conc 32.7 g/dL (30-55); Mean Corpuscular Hemoglobin 29.2 pg (27-33); Mean Corpuscular Volume 89.5 fl (82-101); Mean Platelet Volume 9.7 fL (7.4-10.4); Monocytes # 0.5 10^3/uL (0.2-0.9); Monocytes % 9.7 %; Neutrophils # 3.28 10^3/uL (1.8-7.7); Nucleated Red Blood Cells % 0 %; Platelet Count 181 10^3/cmm (157-399); Red Blood Count 5.06 10^6/uL (3.85-5.65); Red Cell Distribution Width 12.8 % (12.1-15.1); White Blood Count 5.47 10^3/uL (3.29-11.43)
[2023-09-18 10:27] LABS: Alanine Aminotransferase 21 U/L (0-41); Albumin Level 4.4 g/dL (3.5-5.2); Alkaline Phosphatase 69 U/L (40-130); Anion Gap 13.5 (5-19); Aspartate Amino Transferase 20 U/L (0-40); Blood Urea Nitrogen 15 mg/dL (8-23); Calcium 9.4 mg/dL (8.5-10.5); Carbon Dioxide 27 mmol/L (22-29); Chloride 103 mmol/L (98-107); Globulin 2.8 g/dL (1.3-4.6); Glomerular Filtration Rate 66.6 mL/min (90-130); Glucose 108 mg/dL (65-115); Lactate Dehydrogenase 201 U/L (135-225); Osmolality Calculated 289 mOsm/kg (285-295); Potassium 4.5 mmol/L (3.5-5.1); Sodium 139 mmol/L (136-145); Total Bilirubin 0.6 mg/dL (0.15-1.2); Total Protein 7.2 g/dL (6.6-8.7)
[2023-09-18] MEDS: nivolumab 240 MG in sodium chloride 0.9% 250 ML 548 MG IV (11:44)
[2023-09-18 11:45] VITALS: BP 142/78; PULSE 74; RESP 16; TEMP 36.6; O2SAT 97
[2023-10-02 08:27] VITALS: BP 155/95; PULSE 49; RESP 18; TEMP 36.7; O2SAT 99; BMI 35.3
[2023-10-02 09:01] LABS: Basophils % 0.7 %; Eosinophils # 0.1 10^3/uL (0.0-0.8); Eosinophils % 2.1 %; Hematocrit 44.5 % (37-53); Lymphocytes # 1.5 10^3/uL (0.8-4.8); Lymphocytes % 26.3 %; Mean Corpuscular HGB Conc 32.8 g/dL (30-55); Mean Corpuscular Hemoglobin 29.1 pg (27-33); Mean Corpuscular Volume 88.6 fl (82-101); Mean Platelet Volume 9.9 fL (7.4-10.4); Monocytes # 0.5 10^3/uL (0.2-0.9); Monocytes % 9.3 %; Neutrophils # 3.55 10^3/uL (1.8-7.7); Neutrophils % 61.1 %; Nucleated Red Blood Cells % 0 %; Platelet Count 194 10^3/cmm (157-399); Red Blood Count 5.02 10^6/uL (3.85-5.65); Red Cell Distribution Width 12.9 % (12.1-15.1); White Blood Count 5.81 10^3/uL (3.29-11.43)
[2023-10-02 09:22] LABS: Alanine Aminotransferase 20 U/L (0-41); Albumin Level 4.2 g/dL (3.5-5.2); Alkaline Phosphatase 67 U/L (40-130); Anion Gap 18.4 (5-19); Aspartate Amino Transferase 19 U/L (0-40); Blood Urea Nitrogen 19 mg/dL (8-23); Calcium 9.3 mg/dL (8.5-10.5); Carbon Dioxide 23 mmol/L (22-29); Chloride 102 mmol/L (98-107); Globulin 2.8 g/dL (1.3-4.6); Glomerular Filtration Rate 74.3 mL/min (90-130); Glucose 135 mg/dL (65-115); Osmolality Calculated 292 mOsm/kg (285-295); Potassium 4.4 mmol/L (3.5-5.1); Sodium 139 mmol/L (136-145); Total Bilirubin 0.5 mg/dL (0.15-1.2)
[2023-10-02] MEDS: sodium chloride 0.9% 250 ML 75 ML IV (11:11)
[2023-10-02] MEDS: nivolumab 240 MG in sodium chloride 0.9% 250 ML 548 MG IV (11:12)
[2023-10-02 12:04] VITALS: BP 149/89; PULSE 54; RESP 16; TEMP 36.7; O2SAT 97
== END 2023-10-02 23:59 | disposition home or self-care (01) ==
PROVIDERS: Internal Medicine Medical Oncology; PCP Family Medicine; Visit Provider Nurse Practitioner Family
DX: Z53.9 Procedure and treatment not carried out, unspecified reason; C64.2 Malignant neoplasm of left kidney, except renal pelvis; C79.89 Secondary malignant neoplasm of other specified sites; I10 Essential (primary) hypertension; E78.5 Hyperlipidemia, unspecified; Z79.899 Other long term (current) drug therapy; Z51.11 Encounter for antineoplastic chemotherapy
CPT/HCPCS: 80053; 83615; 84443; 85025; 96413; 99214; J7050; J9299

== ENCOUNTER 2023-10-30 10:00 | Oncology outpatient (recurring) (ONCR) | payer MEDICARE, OTHER, SELFPAY ==
[2023-10-16 09:50] VITALS: BP 148/88; PULSE 68; RESP 16; TEMP 36.9; O2SAT 97
[2023-10-16 09:53] LABS: Basophils % 0.4 %; Eosinophils # 0.1 10^3/uL (0.0-0.8); Eosinophils % 1.8 %; Hematocrit 41.8 % (37-53); Lymphocytes # 1.4 10^3/uL (0.8-4.8); Lymphocytes % 25.2 %; Mean Corpuscular HGB Conc 33.5 g/dL (30-55); Mean Corpuscular Hemoglobin 29.9 pg (27-33); Mean Corpuscular Volume 89.3 fl (82-101); Mean Platelet Volume 9.4 fL (7.4-10.4); Monocytes # 0.5 10^3/uL (0.2-0.9); Neutrophils # 3.44 10^3/uL (1.8-7.7); Neutrophils % 63.2 %; Nucleated Red Blood Cells % 0 %; Platelet Count 178 10^3/cmm (157-399); Red Blood Count 4.68 10^6/uL (3.85-5.65); Red Cell Distribution Width 12.9 % (12.1-15.1); White Blood Count 5.44 10^3/uL (3.29-11.43)
[2023-10-16 10:23] LABS: Alanine Aminotransferase 24 U/L (0-41); Albumin Level 4.1 g/dL (3.5-5.2); Alkaline Phosphatase 67 U/L (40-130); Anion Gap 14.2 (5-19); Aspartate Amino Transferase 20 U/L (0-40); Blood Urea Nitrogen 17 mg/dL (8-23); Calcium 9.1 mg/dL (8.5-10.5); Carbon Dioxide 25 mmol/L (22-29); Chloride 102 mmol/L (98-107); Globulin 2.8 g/dL (1.3-4.6); Glomerular Filtration Rate 83.9 mL/min (90-130); Glucose 166 mg/dL (65-115); Lactate Dehydrogenase 177 U/L (135-225); Osmolality Calculated 289 mOsm/kg (285-295); Potassium 4.2 mmol/L (3.5-5.1); Sodium 137 mmol/L (136-145); Thyroid Stimulating Hormone 1.24 uIU/mL (0.27-4.20); Total Bilirubin 0.5 mg/dL (0.15-1.2); Total Protein 6.9 g/dL (6.6-8.7)
[2023-10-16] MEDS: nivolumab 240 MG in sodium chloride 0.9% 250 ML 548 MG IV (11:15)
[2023-10-16 12:03] VITALS: BP 137/74; PULSE 96; RESP 16; TEMP 36.9; O2SAT 93
[2023-10-30 10:19] VITALS: BP 147/79; PULSE 51; RESP 18; TEMP 36.8; O2SAT 97
[2023-10-30 10:25] LABS: Basophils % 0.5 %; Eosinophils # 0.1 10^3/uL (0.0-0.8); Eosinophils % 1.4 %; Hematocrit 41.2 % (37-53); Lymphocytes # 1.7 10^3/uL (0.8-4.8); Lymphocytes % 25.7 %; Mean Corpuscular HGB Conc 32.8 g/dL (30-55); Mean Corpuscular Hemoglobin 29.7 pg (27-33); Mean Corpuscular Volume 90.5 fl (82-101); Mean Platelet Volume 9.6 fL (7.4-10.4); Monocytes # 0.6 10^3/uL (0.2-0.9); Monocytes % 8.3 %; Neutrophils # 4.22 10^3/uL (1.8-7.7); Neutrophils % 63.8 %; Nucleated Red Blood Cells % 0 %; Platelet Count 187 10^3/cmm (157-399); Red Blood Count 4.55 10^6/uL (3.85-5.65); Red Cell Distribution Width 13.2 % (12.1-15.1); White Blood Count 6.61 10^3/uL (3.29-11.43)
[2023-10-30 10:53] LABS: Alanine Aminotransferase 17 U/L (0-41); Albumin Level 3.9 g/dL (3.5-5.2); Alkaline Phosphatase 73 U/L (40-130); Anion Gap 16.8 (5-19); Aspartate Amino Transferase 18 U/L (0-40); Blood Urea Nitrogen 15 mg/dL (8-23); Calcium 9.2 mg/dL (8.5-10.5); Carbon Dioxide 26 mmol/L (22-29); Chloride 100 mmol/L (98-107); Glomerular Filtration Rate 74.3 mL/min (90-130); Glucose 155 mg/dL (65-115); Lactate Dehydrogenase 203 U/L (135-225); Osmolality Calculated 290 mOsm/kg (285-295); Potassium 4.8 mmol/L (3.5-5.1); Sodium 138 mmol/L (136-145); Thyroid Stimulating Hormone 1.37 uIU/mL (0.27-4.20); Total Bilirubin 0.4 mg/dL (0.15-1.2); Total Protein 6.9 g/dL (6.6-8.7)
[2023-10-30] MEDS: nivolumab 240 MG in sodium chloride 0.9% 250 ML 548 MG IV (12:34)
[2023-10-30 13:34] VITALS: BP 124/78; PULSE 64; TEMP 36.7
== END 2023-10-30 23:59 | disposition home or self-care (01) ==
PROVIDERS: Internal Medicine; Internal Medicine Medical Oncology; PCP Family Medicine; Visit Provider Nurse Practitioner Family
DX: Z51.12 Encounter for antineoplastic immunotherapy (principal); C64.2 Malignant neoplasm of left kidney, except renal pelvis; C79.89 Secondary malignant neoplasm of other specified sites; Z79.899 Other long term (current) drug therapy; Z53.9 Procedure and treatment not carried out, unspecified reason
CPT/HCPCS: 99214; 80053; 83615; 84443; 85025; 96413; J7050; J9299

== ENCOUNTER 2023-11-27 09:15 | Oncology outpatient (recurring) (ONCR) | payer MEDICARE, OTHER, SELFPAY ==
[2023-11-13 09:40] LABS: Basophils % 0.5 %; Eosinophils # 0.1 10^3/uL (0.0-0.8); Eosinophils % 1.4 %; Hematocrit 42.4 % (37-53); Lymphocytes # 1.7 10^3/uL (0.8-4.8); Lymphocytes % 25.8 %; Mean Corpuscular HGB Conc 32.3 g/dL (30-55); Mean Corpuscular Hemoglobin 29.1 pg (27-33); Mean Corpuscular Volume 90.2 fl (82-101); Mean Platelet Volume 9.3 fL (7.4-10.4); Monocytes # 0.7 10^3/uL (0.2-0.9); Monocytes % 10.7 %; Neutrophils # 3.95 10^3/uL (1.8-7.7); Neutrophils % 61.4 %; Nucleated Red Blood Cells % 0 %; Platelet Count 200 10^3/cmm (157-399); Red Cell Distribution Width 13.1 % (12.1-15.1); White Blood Count 6.43 10^3/uL (3.29-11.43)
[2023-11-13 10:04] LABS: Alanine Aminotransferase 19 U/L (0-41); Alkaline Phosphatase 75 U/L (40-130); Anion Gap 15.5 (5-19); Aspartate Amino Transferase 17 U/L (0-40); Blood Urea Nitrogen 14 mg/dL (8-23); Calcium 8.9 mg/dL (8.5-10.5); Carbon Dioxide 27 mmol/L (22-29); Chloride 102 mmol/L (98-107); Globulin 3.1 g/dL (1.3-4.6); Glomerular Filtration Rate 66.6 mL/min (90-130); Glucose 104 mg/dL (65-115); Lactate Dehydrogenase 189 U/L (135-225); Osmolality Calculated 291 mOsm/kg (285-295); Potassium 4.5 mmol/L (3.5-5.1); Sodium 140 mmol/L (136-145); Total Bilirubin 0.5 mg/dL (0.15-1.2); Total Protein 7.1 g/dL (6.6-8.7)
[2023-11-13] MEDS: sodium chloride 0.9% 250 ML 75 ML IV (11:04)
[2023-11-13] MEDS: nivolumab 240 MG in sodium chloride 0.9% 250 ML 548 MG IV (11:33)
[2023-11-13 12:15] VITALS: BP 156/94; PULSE 55; RESP 16; TEMP 36.6; O2SAT 92
[2023-11-27 10:00] LABS: Basophils % 0.5 %; Eosinophils # 0.1 10^3/uL (0.0-0.8); Eosinophils % 1.2 %; Hematocrit 42.7 % (37-53); Lymphocytes # 1.3 10^3/uL (0.8-4.8); Mean Corpuscular HGB Conc 32.8 g/dL (30-55); Mean Corpuscular Hemoglobin 29.4 pg (27-33); Mean Corpuscular Volume 89.5 fl (82-101); Mean Platelet Volume 9.6 fL (7.4-10.4); Monocytes # 0.6 10^3/uL (0.2-0.9); Monocytes % 8.4 %; Neutrophils # 4.57 10^3/uL (1.8-7.7); Neutrophils % 69.6 %; Nucleated Red Blood Cells % 0 %; Platelet Count 205 10^3/cmm (157-399); Red Blood Count 4.77 10^6/uL (3.85-5.65); Red Cell Distribution Width 12.8 % (12.1-15.1); White Blood Count 6.56 10^3/uL (3.29-11.43)
[2023-11-27 10:35] LABS: Alanine Aminotransferase 18 U/L (0-41); Albumin Level 4.1 g/dL (3.5-5.2); Alkaline Phosphatase 79 U/L (40-130); Anion Gap 14.7 (5-19); Aspartate Amino Transferase 19 U/L (0-40); Blood Urea Nitrogen 17 mg/dL (8-23); Calcium 8.8 mg/dL (8.5-10.5); Carbon Dioxide 28 mmol/L (22-29); Chloride 101 mmol/L (98-107); Creatinine Clr Calc Pharmacy 86.6908; Glomerular Filtration Rate 74.3 mL/min (90-130); Glucose 122 mg/dL (65-115); Osmolality Calculated 291 mOsm/kg (285-295); Potassium 4.7 mmol/L (3.5-5.1); Sodium 139 mmol/L (136-145); Thyroid Stimulating Hormone 1.16 uIU/mL (0.27-4.20); Total Bilirubin 0.4 mg/dL (0.15-1.2); Total Protein 7.1 g/dL (6.6-8.7)
[2023-11-27] MEDS: nivolumab 240 MG in sodium chloride 0.9% 250 ML 548 MG IV (11:51)
[2023-11-27 12:45] VITALS: BP 155/90; PULSE 60; RESP 16; TEMP 36.5; O2SAT 95
== END 2023-11-27 23:59 | disposition home or self-care (01) ==
PROVIDERS: Internal Medicine; Internal Medicine Medical Oncology; PCP Family Medicine; Visit Provider Nurse Practitioner Family
DX: Z51.12 Encounter for antineoplastic immunotherapy; C64.2 Malignant neoplasm of left kidney, except renal pelvis; C79.89 Secondary malignant neoplasm of other specified sites; Z79.899 Other long term (current) drug therapy; Z87.891 Personal history of nicotine dependence; Z53.9 Procedure and treatment not carried out, unspecified reason
CPT/HCPCS: 36415; 80053; 83615; 84443; 85025; 96413; 99214; A4222; J7050; J9299

== ENCOUNTER 2023-12-02 07:51 | Outpatient (CLI) | payer MEDICARE, OTHER, SELFPAY ==
--- NOTE | 2023-12-02 08:00 | PETR_ITS ---
PROCEDURE INFORMATION: Exam: PET/CT Skull Base to Mid-thigh Exam date and time: 12/02/2023 8:26 AM Age: 68 years old Clinical indication: Condition or disease; Primary cancer: Malignant neoplasm of left kidney; Follow-up oncological assessment; Additional info: Malignant neoplasm of the left kidney. History of recent chemotherapy 11/27/2023. LABS AND CLINICAL REPORTS: Glucose: 116 mg/dl Treatment strategy for malignancy (PET staging): Restaging (PS) TECHNIQUE: Imaging protocol: Following at least four-hour fasting and following the injection of radiopharmaceutical, low dose CT images were obtained. Then, PET images were obtained. Attenuation corrected images were constructed using the CT scan. Fused images of PET and CT were reviewed. The standardized uptake values (SUV) reported below are maximum values within a region of interest, expressed in gm/ml. Exam includes orbital meatal line to mid-thigh. Radiopharmaceutical: 14.19 mCi F-18 FDG (Fluorodeoxyglucose), IV. Time of imaging post radiopharmaceutical administration: 1 hour Injection site: Left antecubital COMPARISON: [facility] SUBSEQ [id number] 07/08/2023 11:22 AM FINDINGS: Brain: Visualized brain has normal physiologic uptake. Pharynx: No abnormal uptake. Larynx: No abnormal uptake. Lungs, pleura and trachea: No abnormal uptake. Heart: Normal physiologic uptake. Mediastinal space: No abnormal uptake. Diaphragm: Soft tissue density ovoid nodules in the region of the posteroinferior left hemidiaphragm are similar in size for example measuring 3.1 x 2.4 cm in the axial plane on series 3, image 120, SUV max 4.2 (previously 3.4) and measuring 1.1 cm in diameter on series 3, image 123, SUV max 2.6 (previously 3.4). Liver: No abnormal uptake. Gallbladder and bile ducts: No abnormal uptake. Pancreas: No abnormal uptake. Spleen: A similar in size heterogeneously hypodense lesion within the spleen is radiotracer avid, SUV max 11.1 (previously 11.7), remeasured on the comparison examination). Its margins are somewhat difficult to assess without intravenous contrast administration, measuring approximately 8.3 x 5.7 cm on series 3, image 133. Adrenal glands: The right adrenal gland is unremarkable. The left adrenal gland is not definitively identified. Please refer to kidneys and ureters findings below for further discussion. Kidneys and ureters: There are postoperative changes of left nephrectomy. A slightly increased in size soft tissue density lesion in the left nephrectomy operative bed and in the region of the expected location of the left adrenal gland is noted currently measuring 4.4 x 3.7 cm (previously 4.6 x 3.4 cm) on series 3, image 139 demonstrates an SUV max 4.6 (previously 4.7). Additional radiotracer avid soft tissue density retroperitoneal adjacent and/or contiguous regions of soft tissue density extend inferior to this level between the aorta in the anterior margin of the psoas muscle with elevated uptake which appears slightly more prominent, for example measuring 3.4 x 1.9 cm (previously 2.9 x 1.8 cm) cm on series 3, image 151, SUV max 4.1 (previously 6.0). Stomach and bowel: There is physiologic appearing uptake within the stomach and bowel.There are scattered colonic diverticula. Uptake within the region of the rectum is likely physiologic or inflammatory, without definitive evidence of correlating lesion on the CT images, SUV max 9.0 (previously 4.3). Vasculature: No abnormal uptake. A prominent caliber of the main pulmonary artery is noted which can be associated with pulmonary arterial hypertension. Lymph nodes: No abnormal uptake. No lymphadenopathy in the head, neck, chest, abdomen, pelvis, and extremities. Bones/joints: No abnormal uptake in the visualized axial and appendicular skeleton. Degenerative changes in the spine are present. Soft tissues: See Kidneys and ureters finding. METRICS: Mediastinal blood pool: SUV max 2.2 [facility] SUBSEQ [id number] IMPRESSION: 1. A radiotracer avid metastatic lesion in the spleen appears similar in size with similar to slight interval decrease in uptake (SUV max 11.1, previously 11.7). 2. Soft tissue density nodularity in the region of the posteroinferior left hemidiaphragm appears morphologically similar to the prior examination with regions of increased and decreased uptake which may represent a mixed response to therapy. 3. A soft tissue density mass in the left renal nephrectomy bed and expected location of the left adrenal gland as well as additional soft tissue density lesions extending inferiorly from this level between the aorta and left psoas muscle appear morphologically slightly more prominent with regions of similar or decreased uptake suggestive of a partial response to therapy. 4. Elevated uptake in the rectum has increased since the prior examination with no definitive evidence of correlating lesion on the CT images. This uptake is likely inflammatory or physiologic in nature. A malignant etiology is less likely. 5. Additional nonurgent findings as detailed above.
== END 2023-12-02 07:52 | disposition home or self-care (01) ==
LOC: RAD 07:51
PROVIDERS: PCP Family Medicine; Visit Provider Internal Medicine
DX: C64.2 Malignant neoplasm of left kidney, except renal pelvis (principal)
CPT/HCPCS: 78815; A9552

== ENCOUNTER 2023-12-25 09:25 | Oncology outpatient (recurring) (ONCR) | payer MEDICARE, OTHER, SELFPAY ==
[2023-12-11 08:13] LABS: Basophils % 0.5 %; Eosinophils # 0.1 10^3/uL (0.0-0.8); Eosinophils % 1.9 %; Lymphocytes # 1.5 10^3/uL (0.8-4.8); Lymphocytes % 26.6 %; Mean Corpuscular HGB Conc 32.9 g/dL (30-55); Mean Corpuscular Hemoglobin 29.4 pg (27-33); Mean Corpuscular Volume 89.4 fl (82-101); Mean Platelet Volume 9.3 fL (7.4-10.4); Monocytes # 0.5 10^3/uL (0.2-0.9); Neutrophils # 3.57 10^3/uL (1.8-7.7); Neutrophils % 61.7 %; Nucleated Red Blood Cells % 0 %; Platelet Count 200 10^3/cmm (157-399); Red Cell Distribution Width 12.9 % (12.1-15.1); White Blood Count 5.79 10^3/uL (3.29-11.43)
[2023-12-11 09:17] LABS: Alanine Aminotransferase 18 U/L (0-41); Alkaline Phosphatase 75 U/L (40-130); Anion Gap 12.5 (5-19); Aspartate Amino Transferase 17 U/L (0-40); Blood Urea Nitrogen 15 mg/dL (8-23); Calcium 8.9 mg/dL (8.5-10.5); Carbon Dioxide 28 mmol/L (22-29); Chloride 101 mmol/L (98-107); Globulin 2.9 g/dL (1.3-4.6); Glomerular Filtration Rate 83.9 mL/min (90-130); Glucose 102 mg/dL (65-115); Osmolality Calculated 285 mOsm/kg (285-295); Potassium 4.5 mmol/L (3.5-5.1); Sodium 137 mmol/L (136-145); Thyroid Stimulating Hormone 1.28 uIU/mL (0.27-4.20); Total Bilirubin 0.4 mg/dL (0.15-1.2); Total Protein 6.9 g/dL (6.6-8.7)
[2023-12-11] MEDS: nivolumab 240 MG in sodium chloride 0.9% 250 ML 548 MG IV (10:21)
[2023-12-11 11:08] VITALS: BP 154/94; PULSE 78; RESP 16; TEMP 36.8; O2SAT 98
[2023-12-25 09:54] LABS: Basophils % 0.6 %; Eosinophils # 0.1 10^3/uL (0.0-0.8); Eosinophils % 1.8 %; Hematocrit 43.4 % (37-53); Lymphocytes # 1.4 10^3/uL (0.8-4.8); Lymphocytes % 27.9 %; Mean Corpuscular HGB Conc 32.5 g/dL (30-55); Mean Corpuscular Hemoglobin 29.3 pg (27-33); Mean Platelet Volume 9.7 fL (7.4-10.4); Monocytes # 0.5 10^3/uL (0.2-0.9); Neutrophils % 60.3 %; Nucleated Red Blood Cells % 0 %; Platelet Count 172 10^3/cmm (157-399); Red Blood Count 4.82 10^6/uL (3.85-5.65); Red Cell Distribution Width 12.7 % (12.1-15.1); White Blood Count 5.13 10^3/uL (3.29-11.43)
[2023-12-25 10:13] LABS: Alanine Aminotransferase 22 U/L (0-41); Albumin Level 4.3 g/dL (3.5-5.2); Alkaline Phosphatase 77 U/L (40-130); Anion Gap 14.4 (5-19); Aspartate Amino Transferase 20 U/L (0-40); Blood Urea Nitrogen 17 mg/dL (8-23); Carbon Dioxide 26 mmol/L (22-29); Chloride 98 mmol/L (98-107); Creatinine Clr Calc Pharmacy 95.5164; Glomerular Filtration Rate 83.9 mL/min (90-130); Glucose 154 mg/dL (65-115); Osmolality Calculated 283 mOsm/kg (285-295); Potassium 4.4 mmol/L (3.5-5.1); Sodium 134 mmol/L (136-145); Total Bilirubin 0.4 mg/dL (0.15-1.2); Total Protein 7.3 g/dL (6.6-8.7)
[2023-12-25] MEDS: nivolumab 240 MG in sodium chloride 0.9% 250 ML 548 MG IV (10:42)
[2023-12-25 11:35] VITALS: BP 146/88; PULSE 55; RESP 16; TEMP 36.3; O2SAT 96
== END 2023-12-25 23:59 | disposition home or self-care (01) ==
PROVIDERS: Internal Medicine Medical Oncology; Nurse Practitioner Family; PCP Family Medicine; Visit Provider Nurse Practitioner Family
DX: Z51.12 Encounter for antineoplastic immunotherapy; C64.2 Malignant neoplasm of left kidney, except renal pelvis; Z53.9 Procedure and treatment not carried out, unspecified reason
CPT/HCPCS: 80053; 84443; 85025; 96413; 99214; A4222; J7050; J9299

== ENCOUNTER 2024-01-22 08:30 | Oncology outpatient (recurring) (ONCR) | payer MEDICARE, OTHER, SELFPAY ==
[2024-01-08 09:29] LABS: Basophils % 0.4 %; Eosinophils # 0.1 10^3/uL (0.0-0.8); Eosinophils % 1.6 %; Hematocrit 44.1 % (37-53); Lymphocytes # 1.5 10^3/uL (0.8-4.8); Lymphocytes % 27.4 %; Mean Corpuscular HGB Conc 32.9 g/dL (30-55); Mean Corpuscular Hemoglobin 29.4 pg (27-33); Mean Corpuscular Volume 89.3 fl (82-101); Mean Platelet Volume 9.4 fL (7.4-10.4); Monocytes # 0.5 10^3/uL (0.2-0.9); Monocytes % 9.3 %; Neutrophils % 60.9 %; Nucleated Red Blood Cells % 0 %; Platelet Count 191 10^3/cmm (157-399); Red Blood Count 4.94 10^6/uL (3.85-5.65); Red Cell Distribution Width 12.9 % (12.1-15.1); White Blood Count 5.58 10^3/uL (3.29-11.43)
[2024-01-08 10:03] LABS: Alanine Aminotransferase 21 U/L (0-41); Albumin Level 4.3 g/dL (3.5-5.2); Alkaline Phosphatase 73 U/L (40-130); Anion Gap 14.6 (5-19); Aspartate Amino Transferase 20 U/L (0-40); Blood Urea Nitrogen 21 mg/dL (8-23); Calcium 9.4 mg/dL (8.5-10.5); Carbon Dioxide 27 mmol/L (22-29); Chloride 102 mmol/L (98-107); Globulin 2.8 g/dL (1.3-4.6); Glomerular Filtration Rate 83.9 mL/min (90-130); Glucose 130 mg/dL (65-115); Osmolality Calculated 293 mOsm/kg (285-295); Potassium 4.6 mmol/L (3.5-5.1); Sodium 139 mmol/L (136-145); Total Bilirubin 0.4 mg/dL (0.15-1.2); Total Protein 7.1 g/dL (6.6-8.7)
[2024-01-08] MEDS: nivolumab 240 MG in sodium chloride 0.9% 250 ML 548 MG IV (11:23)
[2024-01-08 12:09] VITALS: BP 158/87; PULSE 58; RESP 16; O2SAT 98
[2024-01-22 09:07] LABS: Basophils % 0.3 %; Eosinophils # 0.1 10^3/uL (0.0-0.8); Eosinophils % 1.8 %; Hematocrit 45.2 % (37-53); Lymphocytes # 1.8 10^3/uL (0.8-4.8); Lymphocytes % 29.4 %; Mean Corpuscular HGB Conc 32.3 g/dL (30-55); Mean Corpuscular Volume 89.9 fl (82-101); Mean Platelet Volume 9.9 fL (7.4-10.4); Monocytes # 0.6 10^3/uL (0.2-0.9); Monocytes % 10.5 %; Neutrophils % 57.7 %; Nucleated Red Blood Cells % 0 %; Platelet Count 193 10^3/cmm (157-399); Red Blood Count 5.03 10^6/uL (3.85-5.65); Red Cell Distribution Width 13.2 % (12.1-15.1); White Blood Count 6.08 10^3/uL (3.29-11.43)
[2024-01-22 09:29] LABS: Alanine Aminotransferase 24 U/L (0-41); Albumin Level 4.2 g/dL (3.5-5.2); Alkaline Phosphatase 72 U/L (40-130); Blood Urea Nitrogen 17 mg/dL (8-23); Calcium 9.1 mg/dL (8.5-10.5); Carbon Dioxide 26 mmol/L (22-29); Chloride 101 mmol/L (98-107); Creatinine Clr Calc Pharmacy 95.5164; Globulin 3.2 g/dL (1.3-4.6); Glomerular Filtration Rate 83.9 mL/min (90-130); Glucose 124 mg/dL (65-115); Osmolality Calculated 285 mOsm/kg (285-295); Sodium 136 mmol/L (136-145); Total Bilirubin 0.4 mg/dL (0.15-1.2); Total Protein 7.4 g/dL (6.6-8.7)
[2024-01-22 09:41] LABS: Anion Gap 13.7 (5-19); Aspartate Amino Transferase 22 U/L (0-40); Potassium 4.7 mmol/L (3.5-5.1)
[2024-01-22] MEDS: nivolumab 240 MG in sodium chloride 0.9% 250 ML 548 MG IV (10:30)
[2024-01-22 11:15] VITALS: BP 132/82; PULSE 53; RESP 16; TEMP 36.2; O2SAT 95
== END 2024-01-22 23:59 | disposition home or self-care (01) ==
PROVIDERS: PCP Family Medicine; Visit Provider Nurse Practitioner Family
DX: Z51.12 Encounter for antineoplastic immunotherapy (principal); C64.2 Malignant neoplasm of left kidney, except renal pelvis; Z53.9 Procedure and treatment not carried out, unspecified reason
CPT/HCPCS: 36415; 80053; 84443; 85025; 96413; 99214; A4222; J7050; J9299

== ENCOUNTER 2024-02-19 09:00 | Oncology outpatient (recurring) (ONCR) | payer MEDICARE, OTHER, SELFPAY ==
[2024-02-05 09:10] LABS: Basophils % 0.6 %; Eosinophils # 0.1 10^3/uL (0.0-0.8); Hematocrit 43.7 % (37-53); Lymphocytes # 1.7 10^3/uL (0.8-4.8); Lymphocytes % 30.5 %; Mean Corpuscular HGB Conc 32.5 g/dL (30-55); Mean Corpuscular Volume 89.2 fl (82-101); Mean Platelet Volume 9.7 fL (7.4-10.4); Monocytes # 0.6 10^3/uL (0.2-0.9); Monocytes % 11.1 %; Neutrophils # 3.01 10^3/uL (1.8-7.7); Neutrophils % 55.6 %; Nucleated Red Blood Cells % 0 %; Platelet Count 179 10^3/cmm (157-399); Red Cell Distribution Width 13.1 % (12.1-15.1); White Blood Count 5.41 10^3/uL (3.29-11.43)
[2024-02-05 09:35] LABS: Alanine Aminotransferase 23 U/L (0-41); Albumin Level 4.2 g/dL (3.5-5.2); Alkaline Phosphatase 73 U/L (40-130); Anion Gap 12.7 (5-19); Aspartate Amino Transferase 21 U/L (0-40); Blood Urea Nitrogen 20 mg/dL (8-23); Calcium 8.6 mg/dL (8.5-10.5); Carbon Dioxide 27 mmol/L (22-29); Chloride 100 mmol/L (98-107); Glomerular Filtration Rate 74.3 mL/min (90-130); Glucose 118 mg/dL (65-115); Osmolality Calculated 284 mOsm/kg (285-295); Potassium 4.7 mmol/L (3.5-5.1); Sodium 135 mmol/L (136-145); Thyroid Stimulating Hormone 1.62 uIU/mL (0.27-4.20); Total Bilirubin 0.3 mg/dL (0.15-1.2); Total Protein 7.2 g/dL (6.6-8.7)
[2024-02-05] MEDS: nivolumab 240 MG in sodium chloride 0.9% 250 ML 548 MG IV (12:05)
[2024-02-05 12:50] VITALS: BP 149/89; PULSE 58; RESP 16; TEMP 36.4; O2SAT 98
[2024-02-19 09:12] LABS: Basophils % 0.4 %; Eosinophils # 0.1 10^3/uL (0.0-0.8); Eosinophils % 1.7 %; Lymphocytes # 1.7 10^3/uL (0.8-4.8); Mean Corpuscular HGB Conc 32.6 g/dL (30-55); Mean Corpuscular Hemoglobin 29.2 pg (27-33); Mean Corpuscular Volume 89.8 fl (82-101); Mean Platelet Volume 9.7 fL (7.4-10.4); Monocytes # 0.6 10^3/uL (0.2-0.9); Monocytes % 9.1 %; Neutrophils # 4.39 10^3/uL (1.8-7.7); Neutrophils % 63.5 %; Nucleated Red Blood Cells % 0 %; Platelet Count 182 10^3/cmm (157-399); Red Blood Count 4.79 10^6/uL (3.85-5.65); Red Cell Distribution Width 13.2 % (12.1-15.1); White Blood Count 6.92 10^3/uL (3.29-11.43)
[2024-02-19 09:31] LABS: Alanine Aminotransferase 22 U/L (0-41); Albumin Level 4.2 g/dL (3.5-5.2); Alkaline Phosphatase 68 U/L (40-130); Anion Gap 11.7 (5-19); Aspartate Amino Transferase 20 U/L (0-40); Blood Urea Nitrogen 27 mg/dL (8-23); Calcium 9.2 mg/dL (8.5-10.5); Carbon Dioxide 27 mmol/L (22-29); Chloride 100 mmol/L (98-107); Creatinine Clr Calc Pharmacy 78.8098; Glomerular Filtration Rate 66.6 mL/min (90-130); Glucose 126 mg/dL (65-115); Osmolality Calculated 285 mOsm/kg (285-295); Potassium 4.7 mmol/L (3.5-5.1); Sodium 134 mmol/L (136-145); Total Bilirubin 0.3 mg/dL (0.15-1.2); Total Protein 7.2 g/dL (6.6-8.7)
[2024-02-19] MEDS: nivolumab 240 MG in sodium chloride 0.9% 250 ML 548 MG IV (10:14)
[2024-02-19 10:55] VITALS: BP 122/78; PULSE 57; TEMP 36.6; O2SAT 95
== END 2024-02-19 23:59 | disposition home or self-care (01) ==
PROVIDERS: PCP Family Medicine; Visit Provider Nurse Practitioner Family
DX: Z51.12 Encounter for antineoplastic immunotherapy (principal); C64.2 Malignant neoplasm of left kidney, except renal pelvis; Z53.9 Procedure and treatment not carried out, unspecified reason
CPT/HCPCS: 36415; 80053; 84443; 85025; 96413; 99214; A4222; J7050; J9299

== ENCOUNTER 2024-03-04 08:50 | Oncology outpatient (recurring) (ONCR) | payer MEDICARE, OTHER, SELFPAY ==
[2024-03-04 09:57] LABS: Basophils % 0.4 %; Eosinophils # 0.1 10^3/uL (0.0-0.8); Eosinophils % 2.1 %; Hematocrit 44.2 % (37-53); Lymphocytes # 1.5 10^3/uL (0.8-4.8); Lymphocytes % 31.5 %; Mean Corpuscular HGB Conc 32.4 g/dL (30-55); Mean Corpuscular Hemoglobin 29.2 pg (27-33); Mean Corpuscular Volume 90.4 fl (82-101); Monocytes # 0.4 10^3/uL (0.2-0.9); Monocytes % 9.2 %; Neutrophils # 2.63 10^3/uL (1.8-7.7); Neutrophils % 56.6 %; Nucleated Red Blood Cells % 0 %; Platelet Count 163 10^3/cmm (157-399); Red Blood Count 4.89 10^6/uL (3.85-5.65); Red Cell Distribution Width 13.2 % (12.1-15.1); White Blood Count 4.66 10^3/uL (3.29-11.43)
[2024-03-04 10:30] LABS: Alanine Aminotransferase 23 U/L (0-41); Albumin Level 4.2 g/dL (3.5-5.2); Alkaline Phosphatase 76 U/L (40-130); Anion Gap 12.6 (5-19); Aspartate Amino Transferase 20 U/L (0-40); Blood Urea Nitrogen 21 mg/dL (8-23); Calcium 8.7 mg/dL (8.5-10.5); Carbon Dioxide 26 mmol/L (22-29); Chloride 103 mmol/L (98-107); Creatinine Clr Calc Pharmacy 86.6908; Glomerular Filtration Rate 74.3 mL/min (90-130); Glucose 128 mg/dL (65-115); Osmolality Calculated 289 mOsm/kg (285-295); Potassium 4.6 mmol/L (3.5-5.1); Sodium 137 mmol/L (136-145); Total Bilirubin 0.4 mg/dL (0.15-1.2); Total Protein 7.2 g/dL (6.6-8.7)
[2024-03-04] MEDS: nivolumab 240 MG in sodium chloride 0.9% 250 ML 548 MG IV (11:29)
[2024-03-04 12:06] VITALS: BP 146/86; PULSE 56; RESP 18; TEMP 36.1; O2SAT 96
== END 2024-03-05 23:59 | disposition home or self-care (01) ==
PROVIDERS: PCP Family Medicine; Visit Provider Nurse Practitioner Family
DX: Z51.12 Encounter for antineoplastic immunotherapy (principal); C64.2 Malignant neoplasm of left kidney, except renal pelvis; C79.89 Secondary malignant neoplasm of other specified sites; R53.83 Other fatigue; I10 Essential (primary) hypertension; Z79.899 Other long term (current) drug therapy; Z53.9 Procedure and treatment not carried out, unspecified reason
CPT/HCPCS: 80053; 85025; 96413; 99213; A4222; J7050; J9299

== ENCOUNTER 2024-04-01 09:30 | Oncology outpatient (recurring) (ONCR) | payer MEDICARE, OTHER, SELFPAY ==
[2024-03-18 08:18] VITALS: BP 125/75; PULSE 54; RESP 18; TEMP 36.6; O2SAT 95
[2024-03-18 08:39] LABS: Basophils % 0.4 %; Eosinophils # 0.1 10^3/uL (0.0-0.8); Eosinophils % 2.2 %; Hematocrit 41.9 % (37-53); Lymphocytes # 1.6 10^3/uL (0.8-4.8); Lymphocytes % 30.9 %; Mean Corpuscular HGB Conc 32.2 g/dL (30-55); Mean Corpuscular Volume 89.9 fl (82-101); Mean Platelet Volume 9.6 fL (7.4-10.4); Monocytes # 0.6 10^3/uL (0.2-0.9); Neutrophils # 2.78 10^3/uL (1.8-7.7); Neutrophils % 55.3 %; Nucleated Red Blood Cells % 0 %; Platelet Count 173 10^3/cmm (157-399); Red Blood Count 4.66 10^6/uL (3.85-5.65); Red Cell Distribution Width 13.3 % (12.1-15.1); White Blood Count 5.02 10^3/uL (3.29-11.43)
[2024-03-18 08:59] LABS: Alanine Aminotransferase 20 U/L (0-41); Albumin Level 4.1 g/dL (3.5-5.2); Alkaline Phosphatase 75 U/L (40-130); Anion Gap 12.5 (5-19); Aspartate Amino Transferase 20 U/L (0-40); Blood Urea Nitrogen 19 mg/dL (8-23); Carbon Dioxide 28 mmol/L (22-29); Chloride 100 mmol/L (98-107); Globulin 2.8 g/dL (1.3-4.6); Glomerular Filtration Rate 74.3 mL/min (90-130); Glucose 138 mg/dL (65-115); Osmolality Calculated 286 mOsm/kg (285-295); Potassium 4.5 mmol/L (3.5-5.1); Sodium 136 mmol/L (136-145); Total Bilirubin 0.4 mg/dL (0.15-1.2); Total Protein 6.9 g/dL (6.6-8.7)
[2024-03-18] MEDS: nivolumab 240 MG in sodium chloride 0.9% 250 ML 548 MG IV (09:57)
[2024-03-18 10:46] VITALS: BP 146/75; PULSE 58; RESP 18; TEMP 36.4; O2SAT 98
[2024-04-01 09:34] LABS: Basophils % 0.5 %; Eosinophils # 0.2 10^3/uL (0.0-0.8); Eosinophils % 2.6 %; Hematocrit 43.1 % (37-53); Lymphocytes # 1.6 10^3/uL (0.8-4.8); Lymphocytes % 28.7 %; Mean Corpuscular HGB Conc 32.3 g/dL (30-55); Mean Corpuscular Hemoglobin 28.6 pg (27-33); Mean Corpuscular Volume 88.7 fl (82-101); Mean Platelet Volume 9.4 fL (7.4-10.4); Monocytes # 0.6 10^3/uL (0.2-0.9); Monocytes % 10.2 %; Neutrophils # 3.29 10^3/uL (1.8-7.7); Neutrophils % 57.6 %; Nucleated Red Blood Cells % 0 %; Platelet Count 197 10^3/cmm (157-399); Red Blood Count 4.86 10^6/uL (3.85-5.65); Red Cell Distribution Width 13.3 % (12.1-15.1); White Blood Count 5.71 10^3/uL (3.29-11.43)
[2024-04-01 10:07] LABS: Alanine Aminotransferase 18 U/L (0-41); Albumin Level 4.3 g/dL (3.5-5.2); Alkaline Phosphatase 76 U/L (40-130); Anion Gap 13.5 (5-19); Aspartate Amino Transferase 19 U/L (0-40); Blood Urea Nitrogen 18 mg/dL (8-23); Calcium 9.4 mg/dL (8.5-10.5); Carbon Dioxide 26 mmol/L (22-29); Chloride 104 mmol/L (98-107); Globulin 3.1 g/dL (1.3-4.6); Glomerular Filtration Rate 66.6 mL/min (90-130); Glucose 140 mg/dL (65-115); Osmolality Calculated 292 mOsm/kg (285-295); Potassium 4.5 mmol/L (3.5-5.1); Sodium 139 mmol/L (136-145); Thyroid Stimulating Hormone 1.26 uIU/mL (0.27-4.20); Total Bilirubin 0.6 mg/dL (0.15-1.2); Total Protein 7.4 g/dL (6.6-8.7)
[2024-04-01] MEDS: nivolumab 240 MG in sodium chloride 0.9% 250 ML 548 MG IV (12:05)
[2024-04-01 12:55] VITALS: BP 143/79; PULSE 55; RESP 16; TEMP 36.7; O2SAT 98
== END 2024-04-01 23:59 | disposition home or self-care (01) ==
PROVIDERS: Nurse Practitioner Family; PCP Family Medicine; Visit Provider Nurse Practitioner Family
DX: Z51.12 Encounter for antineoplastic immunotherapy; C64.2 Malignant neoplasm of left kidney, except renal pelvis; Z87.891 Personal history of nicotine dependence; Z90.5 Acquired absence of kidney; C78.6 Secondary malignant neoplasm of retroperitoneum and peritoneum; C78.89 Secondary malignant neoplasm of other digestive organs; Z79.899 Other long term (current) drug therapy; Z53.9 Procedure and treatment not carried out, unspecified reason
CPT/HCPCS: 80053; 84443; 85025; 96413; 99213; A4222; J7050; J9299

== ENCOUNTER 2024-04-29 07:30 | Oncology outpatient (recurring) (ONCR) | payer MEDICARE, OTHER, SELFPAY ==
[2024-04-15 09:33] VITALS: BP 142/82; PULSE 59; RESP 16; TEMP 36.6; O2SAT 98
[2024-04-15 09:46] LABS: Basophils % 0.5 %; Eosinophils # 0.1 10^3/uL (0.0-0.8); Eosinophils % 1.8 %; Hematocrit 43.5 % (37-53); Lymphocytes # 1.6 10^3/uL (0.8-4.8); Lymphocytes % 28.9 %; Mean Corpuscular HGB Conc 31.7 g/dL (30-55); Mean Corpuscular Hemoglobin 28.5 pg (27-33); Mean Corpuscular Volume 89.7 fl (82-101); Mean Platelet Volume 9.9 fL (7.4-10.4); Monocytes # 0.5 10^3/uL (0.2-0.9); Monocytes % 9.9 %; Neutrophils % 58.7 %; Nucleated Red Blood Cells % 0 %; Platelet Count 180 10^3/cmm (157-399); Red Blood Count 4.85 10^6/uL (3.85-5.65); Red Cell Distribution Width 13.2 % (12.1-15.1); White Blood Count 5.46 10^3/uL (3.29-11.43)
[2024-04-15 10:09] LABS: Alanine Aminotransferase 19 U/L (0-41); Albumin Level 4.3 g/dL (3.5-5.2); Alkaline Phosphatase 74 U/L (40-130); Anion Gap 12.6 (5-19); Aspartate Amino Transferase 18 U/L (0-40); Blood Urea Nitrogen 25 mg/dL (8-23); Calcium 9.2 mg/dL (8.5-10.5); Carbon Dioxide 28 mmol/L (22-29); Chloride 100 mmol/L (98-107); Creatinine Clr Calc Pharmacy 96.7262; Globulin 2.9 g/dL (1.3-4.6); Glomerular Filtration Rate 83.9 mL/min (90-130); Glucose 110 mg/dL (65-115); Osmolality Calculated 287 mOsm/kg (285-295); Potassium 4.6 mmol/L (3.5-5.1); Sodium 136 mmol/L (136-145); Total Bilirubin 0.4 mg/dL (0.15-1.2); Total Protein 7.2 g/dL (6.6-8.7)
[2024-04-15] MEDS: nivolumab 240 MG in sodium chloride 0.9% 250 ML 548 MG IV (10:36)
[2024-04-15 11:10] VITALS: BP 137/86; PULSE 51; RESP 16; TEMP 36.2; O2SAT 95
[2024-04-29 07:50] LABS: Basophils % 0.6 %; Eosinophils # 0.1 10^3/uL (0.0-0.8); Eosinophils % 2.5 %; Hematocrit 42.2 % (37-53); Lymphocytes # 1.4 10^3/uL (0.8-4.8); Mean Corpuscular HGB Conc 32.7 g/dL (30-55); Mean Corpuscular Hemoglobin 29.2 pg (27-33); Mean Corpuscular Volume 89.2 fl (82-101); Mean Platelet Volume 9.9 fL (7.4-10.4); Monocytes # 0.6 10^3/uL (0.2-0.9); Neutrophils % 58.7 %; Nucleated Red Blood Cells % 0 %; Platelet Count 173 10^3/cmm (157-399); Red Blood Count 4.73 10^6/uL (3.85-5.65); White Blood Count 5.11 10^3/uL (3.29-11.43)
[2024-04-29 08:16] LABS: Alanine Aminotransferase 19 U/L (0-41); Albumin Level 4.2 g/dL (3.5-5.2); Alkaline Phosphatase 74 U/L (40-130); Anion Gap 15.6 (5-19); Aspartate Amino Transferase 16 U/L (0-40); Blood Urea Nitrogen 19 mg/dL (8-23); Carbon Dioxide 25 mmol/L (22-29); Chloride 102 mmol/L (98-107); Creatinine Clr Calc Pharmacy 87.0536; Glomerular Filtration Rate 74.3 mL/min (90-130); Glucose 144 mg/dL (65-115); Osmolality Calculated 291 mOsm/kg (285-295); Potassium 4.6 mmol/L (3.5-5.1); Sodium 138 mmol/L (136-145); Thyroid Stimulating Hormone 1.75 uIU/mL (0.27-4.20); Total Bilirubin 0.4 mg/dL (0.15-1.2); Total Protein 7.2 g/dL (6.6-8.7)
[2024-04-29] MEDS: nivolumab 240 MG in sodium chloride 0.9% 250 ML 548 MG IV (09:38)
[2024-04-29 10:11] VITALS: BP 143/79; PULSE 53; RESP 18; O2SAT 96
== END 2024-04-29 23:59 | disposition home or self-care (01) ==
PROVIDERS: Nurse Practitioner Family; PCP Family Medicine; Visit Provider Nurse Practitioner Family
DX: Z53.9 Procedure and treatment not carried out, unspecified reason (principal); Z87.891 Personal history of nicotine dependence; Z51.12 Encounter for antineoplastic immunotherapy; C64.2 Malignant neoplasm of left kidney, except renal pelvis; Z79.620 Long term (current) use of immunosuppressive biologic; C79.89 Secondary malignant neoplasm of other specified sites; Z90.5 Acquired absence of kidney
CPT/HCPCS: 80053; 84443; 85025; 96413; 99214; A4222; J7050; J9299

== ENCOUNTER 2024-05-27 08:30 | Oncology outpatient (recurring) (ONCR) | payer MEDICARE, OTHER, SELFPAY ==
[2024-05-13 12:45] LABS: Basophils % 0.5 %; Eosinophils # 0.1 10^3/uL (0.0-0.8); Eosinophils % 2.2 %; Hematocrit 41.9 % (37-53); Lymphocytes # 1.6 10^3/uL (0.8-4.8); Lymphocytes % 28.5 %; Mean Corpuscular HGB Conc 32.2 g/dL (30-55); Mean Corpuscular Hemoglobin 28.4 pg (27-33); Mean Platelet Volume 10.1 fL (7.4-10.4); Monocytes # 0.6 10^3/uL (0.2-0.9); Monocytes % 11.3 %; Neutrophils # 3.14 10^3/uL (1.8-7.7); Neutrophils % 57.3 %; Nucleated Red Blood Cells % 0 %; Platelet Count 199 10^3/cmm (157-399); Red Blood Count 4.76 10^6/uL (3.85-5.65); White Blood Count 5.48 10^3/uL (3.29-11.43)
[2024-05-13 13:02] LABS: Alanine Aminotransferase 20 U/L (0-41); Albumin Level 4.4 g/dL (3.5-5.2); Alkaline Phosphatase 78 U/L (40-130); Blood Urea Nitrogen 16 mg/dL (8-23); Calcium 9.3 mg/dL (8.5-10.5); Carbon Dioxide 29 mmol/L (22-29); Chloride 101 mmol/L (98-107); Glomerular Filtration Rate 74.1 mL/min (90-130); Glucose 100 mg/dL (65-115); Osmolality Calculated 289 mOsm/kg (285-295); Sodium 139 mmol/L (136-145); Total Bilirubin 0.3 mg/dL (0.15-1.2); Total Protein 7.4 g/dL (6.6-8.7)
[2024-05-13 13:09] LABS: Anion Gap 13.7 (5-19); Aspartate Amino Transferase 24 U/L (0-40); Potassium 4.7 mmol/L (3.5-5.1)
[2024-05-13] MEDS: nivolumab 240 MG in sodium chloride 0.9% 250 ML 548 MG IV (14:03)
[2024-05-13 14:40] VITALS: BP 147/92; PULSE 50; RESP 16; TEMP 36.6; O2SAT 97
[2024-05-27 09:03] LABS: Basophils % 0.6 %; Eosinophils # 0.1 10^3/uL (0.0-0.8); Eosinophils % 2.1 %; Hematocrit 41.4 % (37-53); Lymphocytes # 1.5 10^3/uL (0.8-4.8); Lymphocytes % 28.8 %; Mean Corpuscular HGB Conc 31.9 g/dL (30-55); Mean Corpuscular Volume 87.9 fl (82-101); Mean Platelet Volume 9.9 fL (7.4-10.4); Monocytes # 0.6 10^3/uL (0.2-0.9); Monocytes % 10.7 %; Neutrophils # 2.95 10^3/uL (1.8-7.7); Neutrophils % 57.6 %; Nucleated Red Blood Cells % 0 %; Platelet Count 178 10^3/cmm (157-399); Red Blood Count 4.71 10^6/uL (3.85-5.65); White Blood Count 5.13 10^3/uL (3.29-11.43)
[2024-05-27 09:28] LABS: Alanine Aminotransferase 18 U/L (0-41); Albumin Level 4.2 g/dL (3.5-5.2); Alkaline Phosphatase 74 U/L (40-130); Aspartate Amino Transferase 18 U/L (0-40); Blood Urea Nitrogen 25 mg/dL (8-23); Calcium 9.1 mg/dL (8.5-10.5); Carbon Dioxide 25 mmol/L (22-29); Chloride 102 mmol/L (98-107); Globulin 2.8 g/dL (1.3-4.6); Glomerular Filtration Rate 66.4 mL/min (90-130); Glucose 134 mg/dL (65-115); Osmolality Calculated 290 mOsm/kg (285-295); Prostate Specific Antigen Scr 0.62 ng/mL (0-4); Sodium 137 mmol/L (136-145); Total Bilirubin 0.3 mg/dL (0.15-1.2)
[2024-05-27 09:29] LABS: Anion Gap 14.4 (5-19); Potassium 4.4 mmol/L (3.5-5.1); Thyroid Stimulating Hormone 2.06 uIU/mL (0.27-4.20)
[2024-05-27] MEDS: nivolumab 240 MG in sodium chloride 0.9% 250 ML 548 MG IV (10:52)
[2024-05-27 11:42] VITALS: BP 134/75; PULSE 76; TEMP 36.7; O2SAT 93
== END 2024-05-27 23:59 | disposition home or self-care (01) ==
PROVIDERS: Nurse Practitioner Family; PCP Family Medicine; Visit Provider Nurse Practitioner Family
DX: Z51.12 Encounter for antineoplastic immunotherapy (principal); C64.2 Malignant neoplasm of left kidney, except renal pelvis; Z53.9 Procedure and treatment not carried out, unspecified reason; Z87.891 Personal history of nicotine dependence; E86.0 Dehydration; C78.6 Secondary malignant neoplasm of retroperitoneum and peritoneum
CPT/HCPCS: 80053; 84443; 85025; 96413; 99214; A4222; G0103; J7050; J9299

== ENCOUNTER 2024-06-24 09:15 | Oncology outpatient (recurring) (ONCR) | payer MEDICARE, OTHER, SELFPAY ==
[2024-06-10 11:00] LABS: Basophils % 0.6 %; Eosinophils # 0.1 10^3/uL (0.0-0.8); Eosinophils % 1.7 %; Hematocrit 42.2 % (37-53); Lymphocytes # 1.6 10^3/uL (0.8-4.8); Lymphocytes % 30.4 %; Mean Corpuscular HGB Conc 31.8 g/dL (30-55); Mean Corpuscular Volume 88.3 fl (82-101); Mean Platelet Volume 9.8 fL (7.4-10.4); Monocytes # 0.6 10^3/uL (0.2-0.9); Monocytes % 11.9 %; Neutrophils # 2.92 10^3/uL (1.8-7.7); Neutrophils % 55.2 %; Nucleated Red Blood Cells % 0 %; Platelet Count 180 10^3/cmm (157-399); Red Blood Count 4.78 10^6/uL (3.85-5.65); Red Cell Distribution Width 13.3 % (12.1-15.1); White Blood Count 5.29 10^3/uL (3.29-11.43)
[2024-06-10 11:09] LABS: Alanine Aminotransferase 20 U/L (0-41); Albumin Level 4.4 g/dL (3.5-5.2); Alkaline Phosphatase 79 U/L (40-130); Anion Gap 14.7 (5-19); Aspartate Amino Transferase 21 U/L (0-40); Blood Urea Nitrogen 23 mg/dL (8-23); Calcium 8.8 mg/dL (8.5-10.5); Carbon Dioxide 26 mmol/L (22-29); Chloride 102 mmol/L (98-107); Glomerular Filtration Rate 74.1 mL/min (90-130); Glucose 107 mg/dL (65-115); Lactate Dehydrogenase 185 U/L (135-225); Osmolality Calculated 290 mOsm/kg (285-295); Potassium 4.7 mmol/L (3.5-5.1); Sodium 138 mmol/L (136-145); Total Bilirubin 0.4 mg/dL (0.15-1.2); Total Protein 7.4 g/dL (6.6-8.7)
[2024-06-10 11:58] VITALS: BP 142/72; PULSE 54; RESP 17; TEMP 36.6; O2SAT 94
[2024-06-10] MEDS: nivolumab 240 MG in sodium chloride 0.9% 250 ML 548 MG IV (12:00)
[2024-06-10 12:52] VITALS: BP 145/86; PULSE 60; TEMP 36.4; O2SAT 97
[2024-06-24 10:01] LABS: Basophils % 0.5 %; Eosinophils # 0.2 10^3/uL (0.0-0.8); Eosinophils % 2.6 %; Hematocrit 41.3 % (37-53); Lymphocytes # 1.6 10^3/uL (0.8-4.8); Lymphocytes % 26.3 %; Mean Corpuscular HGB Conc 31.7 g/dL (30-55); Mean Corpuscular Hemoglobin 27.7 pg (27-33); Mean Corpuscular Volume 87.3 fl (82-101); Mean Platelet Volume 10.2 fL (7.4-10.4); Monocytes # 0.7 10^3/uL (0.2-0.9); Monocytes % 11.3 %; Neutrophils # 3.57 10^3/uL (1.8-7.7); Neutrophils % 59.1 %; Nucleated Red Blood Cells % 0 %; Platelet Count 197 10^3/cmm (157-399); Red Blood Count 4.73 10^6/uL (3.85-5.65); Red Cell Distribution Width 13.3 % (12.1-15.1); White Blood Count 6.04 10^3/uL (3.29-11.43)
[2024-06-24 10:11] LABS: Alanine Aminotransferase 17 U/L (0-41); Albumin Level 4.1 g/dL (3.5-5.2); Alkaline Phosphatase 75 U/L (40-130); Anion Gap 12.7 (5-19); Aspartate Amino Transferase 17 U/L (0-40); Blood Urea Nitrogen 19 mg/dL (8-23); Calcium 9.1 mg/dL (8.5-10.5); Carbon Dioxide 29 mmol/L (22-29); Chloride 103 mmol/L (98-107); Globulin 2.9 g/dL (1.3-4.6); Glomerular Filtration Rate 66.4 mL/min (90-130); Glucose 100 mg/dL (65-115); Lactate Dehydrogenase 156 U/L (135-225); Osmolality Calculated 292 mOsm/kg (285-295); Potassium 4.7 mmol/L (3.5-5.1); Sodium 140 mmol/L (136-145); Total Bilirubin 0.4 mg/dL (0.15-1.2)
[2024-06-24] MEDS: nivolumab 240 MG in sodium chloride 0.9% 250 ML 548 MG IV (11:26)
[2024-06-24 12:07] VITALS: BP 152/90; PULSE 55; RESP 16; TEMP 36.8; O2SAT 98
== END 2024-06-24 23:59 | disposition home or self-care (01) ==
PROVIDERS: Nurse Practitioner Family; PCP Family Medicine; Visit Provider Nurse Practitioner Family
DX: Z51.12 Encounter for antineoplastic immunotherapy (principal); C64.2 Malignant neoplasm of left kidney, except renal pelvis; Z53.9 Procedure and treatment not carried out, unspecified reason; Z87.891 Personal history of nicotine dependence; C78.6 Secondary malignant neoplasm of retroperitoneum and peritoneum; C78.89 Secondary malignant neoplasm of other digestive organs; I10 Essential (primary) hypertension; Z79.899 Other long term (current) drug therapy; Z79.69 Long term (current) use of other immunomodulators and immunosuppressants
CPT/HCPCS: 80053; 83615; 85025; 96365; 96413; 99214; A4222; J7050; J9299

== ENCOUNTER 2024-07-22 08:00 | Oncology outpatient (recurring) (ONCR) | payer MEDICARE, OTHER, SELFPAY ==
[2024-07-08 10:51] LABS: Basophils % 0.6 %; Eosinophils # 0.2 10^3/uL (0.0-0.8); Eosinophils % 2.3 %; Lymphocytes # 1.4 10^3/uL (0.8-4.8); Lymphocytes % 20.9 %; Mean Corpuscular HGB Conc 31.6 g/dL (30-55); Mean Corpuscular Hemoglobin 27.5 pg (27-33); Mean Corpuscular Volume 86.9 fl (82-101); Mean Platelet Volume 10.3 fL (7.4-10.4); Monocytes # 0.8 10^3/uL (0.2-0.9); Monocytes % 12.3 %; Neutrophils # 4.14 10^3/uL (1.8-7.7); Neutrophils % 63.6 %; Nucleated Red Blood Cells % 0 %; Platelet Count 207 10^3/cmm (157-399); Red Blood Count 4.95 10^6/uL (3.85-5.65); Red Cell Distribution Width 13.5 % (12.1-15.1); White Blood Count 6.51 10^3/uL (3.29-11.43)
[2024-07-08 11:08] LABS: Alanine Aminotransferase 19 U/L (0-41); Albumin Level 4.3 g/dL (3.5-5.2); Alkaline Phosphatase 80 U/L (40-130); Blood Urea Nitrogen 22 mg/dL (8-23); Calcium 9.2 mg/dL (8.5-10.5); Carbon Dioxide 27 mmol/L (22-29); Chloride 103 mmol/L (98-107); Globulin 2.9 g/dL (1.3-4.6); Glomerular Filtration Rate 66.4 mL/min (90-130); Glucose 110 mg/dL (65-115); Osmolality Calculated 290 mOsm/kg (285-295); Sodium 138 mmol/L (136-145); Total Bilirubin 0.4 mg/dL (0.15-1.2); Total Protein 7.2 g/dL (6.6-8.7)
[2024-07-08 11:11] LABS: Aspartate Amino Transferase 23 U/L (0-40)
[2024-07-08] MEDS: nivolumab 240 MG in sodium chloride 0.9% 250 ML 548 MG IV (12:10)
[2024-07-08 12:53] VITALS: BP 143/74; PULSE 48; RESP 16; TEMP 36.6; O2SAT 96
--- NOTE | 2024-07-08 13:02 | XR_ITS ---
WS: [id number] Exam: XR chest 2V* [id number] Date/Time of Exam: 07/08/2024 1:11 PM Reason For Exam: cough Comparison 01/23/2022. Lungs are fully expanded and clear. Heart size top limits normal. The mediastinum is normal in contou r. Bony structures are intact. XR/XR chest 2V* [id number] IMPRESSION: 1. No acute cardiopulmonary finding.
[2024-07-22 08:25] LABS: Basophils % 0.7 %; Eosinophils # 0.2 10^3/uL (0.0-0.8); Eosinophils % 2.8 %; Hematocrit 42.8 % (37-53); Lymphocytes # 1.6 10^3/uL (0.8-4.8); Lymphocytes % 26.9 %; Mean Corpuscular Hemoglobin 27.8 pg (27-33); Mean Platelet Volume 10.1 fL (7.4-10.4); Monocytes # 0.7 10^3/uL (0.2-0.9); Monocytes % 11.3 %; Neutrophils # 3.54 10^3/uL (1.8-7.7); Neutrophils % 58.1 %; Nucleated Red Blood Cells % 0 %; Platelet Count 220 10^3/cmm (157-399); Red Blood Count 4.92 10^6/uL (3.85-5.65); Red Cell Distribution Width 13.5 % (12.1-15.1); White Blood Count 6.09 10^3/uL (3.29-11.43)
[2024-07-22 08:46] LABS: Alanine Aminotransferase 17 U/L (0-41); Albumin Level 4.5 g/dL (3.5-5.2); Alkaline Phosphatase 84 U/L (40-130); Blood Urea Nitrogen 23 mg/dL (8-23); Calcium 9.2 mg/dL (8.5-10.5); Carbon Dioxide 28 mmol/L (22-29); Chloride 102 mmol/L (98-107); Creatinine Clr Calc Pharmacy 71.0897; Globulin 2.9 g/dL (1.3-4.6); Glucose 108 mg/dL (65-115); Osmolality Calculated 290 mOsm/kg (285-295); Sodium 138 mmol/L (136-145); Total Bilirubin 0.4 mg/dL (0.15-1.2); Total Protein 7.4 g/dL (6.6-8.7)
[2024-07-22 08:47] LABS: Anion Gap 12.9 (5-19); Aspartate Amino Transferase 21 U/L (0-40); Potassium 4.9 mmol/L (3.5-5.1)
[2024-07-22] MEDS: nivolumab 240 MG in sodium chloride 0.9% 250 ML 548 MG IV (09:37)
[2024-07-22 10:19] VITALS: BP 134/68; PULSE 58; RESP 16; TEMP 36.7; O2SAT 96
== END 2024-07-22 23:59 | disposition home or self-care (01) ==
PROVIDERS: Nurse Practitioner Family; PCP Family Medicine; Visit Provider Nurse Practitioner Family
DX: Z53.9 Procedure and treatment not carried out, unspecified reason; Z51.12 Encounter for antineoplastic immunotherapy; C64.2 Malignant neoplasm of left kidney, except renal pelvis; I10 Essential (primary) hypertension; R05.9 Cough, unspecified; Z79.899 Other long term (current) drug therapy
CPT/HCPCS: 71046; 80053; 84443; 85025; 96413; 99214; A4222; J7050; J9299

== ENCOUNTER 2024-08-05 09:22 | Oncology outpatient (recurring) (ONCR) | payer MEDICARE, OTHER, SELFPAY ==
[2024-08-05 10:02] VITALS: BP 145/73; PULSE 64; RESP 17; TEMP 36.7; O2SAT 93
[2024-08-05] MEDS: nivolumab 480 MG in sodium chloride 0.9% 250 ML 596 MG IV (10:42)
[2024-08-05 11:33] VITALS: BP 140/67; PULSE 49; TEMP 36.8; O2SAT 96
== END 2024-08-05 23:59 | disposition home or self-care (01) ==
PROVIDERS: PCP Family Medicine; Visit Provider Nurse Practitioner Family
DX: Z51.12 Encounter for antineoplastic immunotherapy (principal); C64.2 Malignant neoplasm of left kidney, except renal pelvis; Z79.899 Other long term (current) drug therapy
CPT/HCPCS: 96413; J7050; J9299

== ENCOUNTER 2024-09-20 09:30 | Oncology outpatient (recurring) (ONCR) | payer MEDICARE, OTHER, SELFPAY ==
[2024-09-06 09:00] LABS: Basophils # 0.1 10^3/uL (0.0-0.1); Basophils % 0.7 %; Eosinophils # 0.2 10^3/uL (0.0-0.8); Eosinophils % 3.2 %; Hematocrit 42.3 % (37-53); Lymphocytes # 1.6 10^3/uL (0.8-4.8); Mean Corpuscular Hemoglobin 26.5 pg (27-33); Mean Corpuscular Volume 85.6 fl (82-101); Mean Platelet Volume 9.7 fL (7.4-10.4); Monocytes # 0.7 10^3/uL (0.2-0.9); Neutrophils # 4.24 10^3/uL (1.8-7.7); Neutrophils % 62.8 %; Nucleated Red Blood Cells % 0 %; Platelet Count 218 10^3/cmm (157-399); Red Blood Count 4.94 10^6/uL (3.85-5.65); White Blood Count 6.77 10^3/uL (3.29-11.43)
[2024-09-06 09:22] LABS: Alanine Aminotransferase 16 U/L (0-41); Albumin Level 4.3 g/dL (3.5-5.2); Alkaline Phosphatase 88 U/L (40-130); Anion Gap 10.8 (5-19); Aspartate Amino Transferase 17 U/L (0-40); Blood Urea Nitrogen 15 mg/dL (8-23); Calcium 9.7 mg/dL (8.5-10.5); Carbon Dioxide 30 mmol/L (22-29); Chloride 97 mmol/L (98-107); Creatinine Clr Calc Pharmacy 85.3077; Globulin 3.1 g/dL (1.3-4.6); Glomerular Filtration Rate 74.1 mL/min (90-130); Glucose 96 mg/dL (65-115); Osmolality Calculated 277 mOsm/kg (285-295); Potassium 4.8 mmol/L (3.5-5.1); Sodium 133 mmol/L (136-145); Total Bilirubin 0.4 mg/dL (0.15-1.2); Total Protein 7.4 g/dL (6.6-8.7)
[2024-09-06] MEDS: nivolumab 240 MG in sodium chloride 0.9% 250 ML 548 MG IV (10:48)
[2024-09-06 11:32] VITALS: BP 139/90; PULSE 55
[2024-09-20 09:53] LABS: Basophils % 0.5 %; Eosinophils # 0.2 10^3/uL (0.0-0.8); Eosinophils % 2.9 %; Hematocrit 40.7 % (37-53); Lymphocytes # 1.5 10^3/uL (0.8-4.8); Lymphocytes % 22.4 %; Mean Corpuscular HGB Conc 31.7 g/dL (30-55); Mean Corpuscular Hemoglobin 26.7 pg (27-33); Mean Corpuscular Volume 84.1 fl (82-101); Mean Platelet Volume 10.1 fL (7.4-10.4); Monocytes # 0.8 10^3/uL (0.2-0.9); Monocytes % 11.8 %; Neutrophils # 4.02 10^3/uL (1.8-7.7); Neutrophils % 62.2 %; Nucleated Red Blood Cells % 0 %; Platelet Count 217 10^3/cmm (157-399); Red Blood Count 4.84 10^6/uL (3.85-5.65); Red Cell Distribution Width 14.4 % (12.1-15.1); White Blood Count 6.46 10^3/uL (3.29-11.43)
[2024-09-20 10:18] LABS: Alanine Aminotransferase 18 U/L (0-41); Albumin Level 4.3 g/dL (3.5-5.2); Alkaline Phosphatase 86 U/L (40-130); Aspartate Amino Transferase 22 U/L (0-40); Blood Urea Nitrogen 17 mg/dL (8-23); Calcium 9.6 mg/dL (8.5-10.5); Carbon Dioxide 28 mmol/L (22-29); Chloride 98 mmol/L (98-107); Creatinine Clr Calc Pharmacy 85.8445; Glomerular Filtration Rate 74.1 mL/min (90-130); Glucose 105 mg/dL (65-115); Osmolality Calculated 286 mOsm/kg (285-295); Sodium 137 mmol/L (136-145); Thyroid Stimulating Hormone 1.46 uIU/mL (0.27-4.20); Total Bilirubin 0.4 mg/dL (0.15-1.2); Total Protein 7.3 g/dL (6.6-8.7)
[2024-09-20 10:23] LABS: Anion Gap 16.1 (5-19); Potassium 5.1 mmol/L (3.5-5.1)
[2024-09-20] MEDS: nivolumab 240 MG in sodium chloride 0.9% 250 ML 548 MG IV (12:13)
[2024-09-20 12:54] VITALS: BP 151/71; PULSE 68; RESP 17; TEMP 36.3; O2SAT 95
== END 2024-09-20 23:59 | disposition home or self-care (01) ==
PROVIDERS: Internal Medicine Medical Oncology; Nurse Practitioner Family; PCP Family Medicine; Visit Provider Nurse Practitioner Family
DX: Z51.12 Encounter for antineoplastic immunotherapy (principal); C64.2 Malignant neoplasm of left kidney, except renal pelvis; C79.89 Secondary malignant neoplasm of other specified sites; Z79.899 Other long term (current) drug therapy; Z87.891 Personal history of nicotine dependence
CPT/HCPCS: 80053; 84443; 85025; 96413; 99214; A4222; J7050; J9299

== ENCOUNTER 2024-10-04 08:00 | Oncology outpatient (recurring) (ONCR) | payer MEDICARE, OTHER, SELFPAY ==
--- NOTE | 2024-09-24 12:50 | PETR_ITS ---
PROCEDURE INFORMATION: Exam: PET/CT Skull Base to Mid-thigh Exam date and time: 09/24/2024 1:16 PM Age: 69 years old Clinical indication: Condition or disease; Primary cancer: Metastatic renal cell carcinoma left LABS AND CLINICAL REPORTS: Glucose: 100 mg/dl Treatment strategy for malignancy (PET staging): Restaging (PS) TECHNIQUE: Imaging protocol: Following at least four-hour fasting and following the injection of radiopharmaceutical, low dose CT images were obtained. Then, PET images were obtained. Attenuation corrected images were constructed using the CT scan. Fused images of PET and CT were reviewed. The standardized uptake values (SUV) reported below are maximum values within a region of interest, expressed in gm/ml. Exam includes orbital meatal line to mid-thigh. SUV normalization method: BodyWeight Radiopharmaceutical: 12.72 mCi F-18 FDG (Fluorodeoxyglucose), IV. Time of imaging post radiopharmaceutical administration: 53 minutes Injection site: LEFT AC COMPARISON: PT PET skull to thigh SUBS [id number] 12/02/2023 8:26 AM FINDINGS: Brain: Visualized brain has normal physiologic uptake. Pharynx: No abnormal uptake. Larynx: No abnormal uptake. Lungs, pleura and trachea: No abnormal uptake. Mild bibasilar subsegmental atelectasis versus scarring. No consolidation or mass. Heart: Normal physiologic uptake. Mediastinal space: No abnormal uptake. Diaphragm: Increased nodular thickening along the left posteromedial hemidiaphragm, index lesion measuring 3.0 x 2.8 cm on axial image 138 showing SUV max 30.6, previously 2.6 x 2.1 cm with SUV max 4.2. More posterior lesion on axial image 141 measures 4.2 x 1.7 cm and shows SUV max 18.3, previously 2.6 x 1.1 cm with SUV max 2.6. Liver: No abnormal uptake. Gallbladder and biliary ducts: No abnormal uptake. Pancreas: No abnormal uptake. Spleen: Increased size splenic mass measures approximately 9 x 6.5 cm on axial image 155 with developed cystic/necrotic component anterolaterally showing SUV max 25.2, previously measuring approximately 7 x 4.1 cm with SUV max 11.1. Adrenal glands: Normal right adrenal gland. Left adrenal gland not definitely visualized, see below. Kidneys and ureters: Prior left nephrectomy. Irregular FDG avid mass at the nephrectomy/adrenal bed measures 5.1 x 4.5 cm on axial image 160 (previously 4.5 x 3.6 cm) with superomedial extension involving the left retrocrural space (SUV max 19.4, previously 4.6) and extending inferiorly along the left para-aortic region with measurement of 3.3 x 2.7 cm on axial image 174 (previously 2.8 x 1.8 cm). Some of this abnormality, particularly the more inferior component, may represent abnormal lymphadenopathy. Punctate nonobstructive right nephrolith. Otherwise unremarkable right kidney and ureter. Stomach and bowel: Diffuse FDG uptake along the somewhat underdistended stomach. No abnormal bowel uptake. Vasculature: No abnormal uptake. Mild systemic atherosclerotic calcification without aortic aneurysm. Pulmonary arterial dilatation with the main trunk measuring 4.6 cm. Lymph nodes: See Kidneys and ureters finding. Skeleton: No abnormal uptake in the visualized axial and appendicular skeleton. Degenerative change along the spine and sacroiliac joints as well as the left shoulder. Soft tissues: No abnormal uptake in the visualized head, neck, chest, abdomen, pelvis, and extremities. Small fat containing umbilical hernia. METRICS: Mediastinal blood pool: SUV mean 2.1 Liver uptake: SUV mean 2.6 PET/PET skull to thigh SUBS [id number] IMPRESSION: 1. Disease progression with increased size and FDG avidity of left nephrectomy bed mass extending to the left retrocrural space and inferiorly along the left para-aortic region (possible lymphadenopathy), splenic mass, and left posteromedial diaphragmatic masses. 2. Diffuse FDG uptake along the stomach may be physiologic or inflammatory. 3. Punctate nonobstructive right nephrolith. 4. Pulmonary arterial dilatation may be seen in setting of pulmonary hypertension.
[2024-10-04 09:05] LABS: Basophils % 0.8 %; Eosinophils # 0.2 10^3/uL (0.0-0.8); Eosinophils % 3.1 %; Hematocrit 39.1 % (37-53); Lymphocytes # 1.4 10^3/uL (0.8-4.8); Lymphocytes % 27.4 %; Mean Corpuscular HGB Conc 30.9 g/dL (30-55); Mean Corpuscular Hemoglobin 26.4 pg (27-33); Mean Corpuscular Volume 85.2 fl (82-101); Mean Platelet Volume 9.6 fL (7.4-10.4); Monocytes # 0.5 10^3/uL (0.2-0.9); Monocytes % 9.8 %; Neutrophils # 2.98 10^3/uL (1.8-7.7); Neutrophils % 58.7 %; Nucleated Red Blood Cells % 0 %; Platelet Count 190 10^3/cmm (157-399); Red Blood Count 4.59 10^6/uL (3.85-5.65); White Blood Count 5.08 10^3/uL (3.29-11.43)
[2024-10-04 09:33] LABS: Alanine Aminotransferase 17 U/L (0-41); Albumin Level 4.2 g/dL (3.5-5.2); Alkaline Phosphatase 94 U/L (40-130); Anion Gap 14.6 (5-19); Aspartate Amino Transferase 22 U/L (0-40); Blood Urea Nitrogen 15 mg/dL (8-23); Calcium 9.3 mg/dL (8.5-10.5); Carbon Dioxide 30 mmol/L (22-29); Chloride 96 mmol/L (98-107); Creatinine Clr Calc Pharmacy 94.9853; Globulin 3.2 g/dL (1.3-4.6); Glomerular Filtration Rate 83.7 mL/min (90-130); Glucose 119 mg/dL (65-115); Osmolality Calculated 284 mOsm/kg (285-295); Potassium 4.6 mmol/L (3.5-5.1); Sodium 136 mmol/L (136-145); Thyroid Stimulating Hormone 1.92 uIU/mL (0.27-4.20); Total Bilirubin 0.3 mg/dL (0.15-1.2); Total Protein 7.4 g/dL (6.6-8.7)
[2024-10-04] MEDS: nivolumab 240 MG in sodium chloride 0.9% 250 ML 548 MG IV (11:33)
[2024-10-04 12:20] VITALS: BP 118/68; PULSE 52; RESP 16; TEMP 36.6; O2SAT 96
== END 2024-10-04 23:59 | disposition home or self-care (01) ==
PROVIDERS: PCP Family Medicine; Visit Provider Nurse Practitioner Family
DX: Z53.9 Procedure and treatment not carried out, unspecified reason (principal); Z51.12 Encounter for antineoplastic immunotherapy; C64.2 Malignant neoplasm of left kidney, except renal pelvis; C79.89 Secondary malignant neoplasm of other specified sites; Z79.899 Other long term (current) drug therapy
CPT/HCPCS: 36415; 78815; 80053; 84443; 85025; 96413; 99214; A4222; A9552; J7050; J9299

== ENCOUNTER 2024-11-01 07:30 | Oncology outpatient (recurring) (ONCR) | payer MEDICARE, OTHER, SELFPAY ==
[2024-10-18 08:26] LABS: Basophils % 0.7 %; Eosinophils # 0.1 10^3/uL (0.0-0.8); Eosinophils % 2.2 %; Hematocrit 41.7 % (37-53); Lymphocytes # 1.6 10^3/uL (0.8-4.8); Lymphocytes % 28.3 %; Mean Corpuscular HGB Conc 31.4 g/dL (30-55); Mean Corpuscular Hemoglobin 26.4 pg (27-33); Mean Corpuscular Volume 83.9 fl (82-101); Mean Platelet Volume 9.7 fL (7.4-10.4); Monocytes # 0.6 10^3/uL (0.2-0.9); Neutrophils # 3.19 10^3/uL (1.8-7.7); Neutrophils % 57.6 %; Nucleated Red Blood Cells % 0 %; Platelet Count 210 10^3/cmm (157-399); Red Blood Count 4.97 10^6/uL (3.85-5.65); Red Cell Distribution Width 14.4 % (12.1-15.1); White Blood Count 5.54 10^3/uL (3.29-11.43)
[2024-10-18 08:58] LABS: Alanine Aminotransferase 18 U/L (0-41); Albumin Level 4.2 g/dL (3.5-5.2); Alkaline Phosphatase 79 U/L (40-130); Anion Gap 14.4 (5-19); Aspartate Amino Transferase 16 U/L (0-40); Blood Urea Nitrogen 17 mg/dL (8-23); Calcium 9.6 mg/dL (8.5-10.5); Carbon Dioxide 27 mmol/L (22-29); Chloride 100 mmol/L (98-107); Creatinine Clr Calc Pharmacy 85.3077; Globulin 3.2 g/dL (1.3-4.6); Glomerular Filtration Rate 74.1 mL/min (90-130); Glucose 131 mg/dL (65-115); Osmolality Calculated 287 mOsm/kg (285-295); Potassium 4.4 mmol/L (3.5-5.1); Sodium 137 mmol/L (136-145); Thyroid Stimulating Hormone 1.93 uIU/mL (0.27-4.20); Total Bilirubin 0.3 mg/dL (0.15-1.2); Total Protein 7.4 g/dL (6.6-8.7)
[2024-10-18] MEDS: nivolumab 240 MG in sodium chloride 0.9% 250 ML 548 MG IV (09:55)
[2024-10-18 10:29] VITALS: BP 137/88; PULSE 60; RESP 17; TEMP 36.1; O2SAT 98
[2024-11-01 07:58] LABS: Basophils % 0.7 %; Eosinophils # 0.1 10^3/uL (0.0-0.8); Eosinophils % 2.2 %; Hematocrit 42.1 % (37-53); Lymphocytes # 1.6 10^3/uL (0.8-4.8); Lymphocytes % 28.8 %; Mean Corpuscular HGB Conc 31.4 g/dL (30-55); Mean Corpuscular Hemoglobin 26.5 pg (27-33); Mean Corpuscular Volume 84.5 fl (82-101); Mean Platelet Volume 9.8 fL (7.4-10.4); Monocytes # 0.7 10^3/uL (0.2-0.9); Monocytes % 12.9 %; Neutrophils # 3.03 10^3/uL (1.8-7.7); Neutrophils % 55.2 %; Nucleated Red Blood Cells % 0 %; Platelet Count 206 10^3/cmm (157-399); Red Blood Count 4.98 10^6/uL (3.85-5.65); Red Cell Distribution Width 14.4 % (12.1-15.1); White Blood Count 5.49 10^3/uL (3.29-11.43)
[2024-11-01 08:31] LABS: Alanine Aminotransferase 17 U/L (0-41); Albumin Level 4.3 g/dL (3.5-5.2); Alkaline Phosphatase 88 U/L (40-130); Aspartate Amino Transferase 17 U/L (0-40); Blood Urea Nitrogen 14 mg/dL (8-23); Calcium 9.7 mg/dL (8.5-10.5); Carbon Dioxide 28 mmol/L (22-29); Chloride 99 mmol/L (98-107); Creatinine Clr Calc Pharmacy 94.5873; Globulin 3.3 g/dL (1.3-4.6); Glomerular Filtration Rate 83.7 mL/min (90-130); Glucose 109 mg/dL (65-115); Osmolality Calculated 285 mOsm/kg (285-295); Sodium 137 mmol/L (136-145); Thyroid Stimulating Hormone 1.76 uIU/mL (0.27-4.20); Total Bilirubin 0.3 mg/dL (0.15-1.2); Total Protein 7.6 g/dL (6.6-8.7)
[2024-11-01] MEDS: nivolumab 240 MG in sodium chloride 0.9% 250 ML 548 MG IV (10:06)
[2024-11-01 10:46] VITALS: BP 133/88; PULSE 56; RESP 17; TEMP 36; O2SAT 98
== END 2024-11-01 23:59 | disposition home or self-care (01) ==
PROVIDERS: Internal Medicine Medical Oncology; PCP Family Medicine; Visit Provider Nurse Practitioner Family
DX: Z51.12 Encounter for antineoplastic immunotherapy (principal); C64.2 Malignant neoplasm of left kidney, except renal pelvis; Z53.9 Procedure and treatment not carried out, unspecified reason; Z79.899 Other long term (current) drug therapy; C78.89 Secondary malignant neoplasm of other digestive organs; Z87.891 Personal history of nicotine dependence; R53.83 Other fatigue
CPT/HCPCS: 80053; 84443; 85025; 96413; 99214; 99215; A4222; J7050; J9299

== ENCOUNTER 2024-11-29 07:30 | Oncology outpatient (recurring) (ONCR) | payer MEDICARE, OTHER, SELFPAY ==
[2024-11-08 11:22] LABS: Basophils # 0.1 10^3/uL (0.0-0.1); Basophils % 0.7 %; Eosinophils # 0.1 10^3/uL (0.0-0.8); Eosinophils % 1.5 %; Hematocrit 42.4 % (37-53); Lymphocytes # 2.1 10^3/uL (0.8-4.8); Lymphocytes % 28.2 %; Mean Corpuscular HGB Conc 31.8 g/dL (30-55); Mean Corpuscular Hemoglobin 26.3 pg (27-33); Mean Corpuscular Volume 82.5 fl (82-101); Mean Platelet Volume 9.7 fL (7.4-10.4); Monocytes # 0.8 10^3/uL (0.2-0.9); Monocytes % 11.3 %; Neutrophils # 4.33 10^3/uL (1.8-7.7); Neutrophils % 58.2 %; Nucleated Red Blood Cells % 0 %; Platelet Count 198 10^3/cmm (157-399); Red Blood Count 5.14 10^6/uL (3.85-5.65); White Blood Count 7.44 10^3/uL (3.29-11.43)
[2024-11-08 11:50] LABS: Alanine Aminotransferase 22 U/L (0-41); Albumin Level 4.4 g/dL (3.5-5.2); Alkaline Phosphatase 103 U/L (40-130); Aspartate Amino Transferase 21 U/L (0-40); Blood Urea Nitrogen 18 mg/dL (8-23); Calcium 9.2 mg/dL (8.5-10.5); Carbon Dioxide 27 mmol/L (22-29); Chloride 96 mmol/L (98-107); Creatinine Clr Calc Pharmacy 84.8269; Free T4 Free Thyroxine 1.24 ng/dL (0.82-1.77); Globulin 3.2 g/dL (1.3-4.6); Glomerular Filtration Rate 74.1 mL/min (90-130); Glucose 105 mg/dL (65-115); Lactate Dehydrogenase 259 U/L (135-225); Osmolality Calculated 280 mOsm/kg (285-295); Sodium 134 mmol/L (136-145); T3 Free 2.7 PG/ML (2.0-4.4); Total Bilirubin 0.2 mg/dL (0.15-1.2); Total Protein 7.6 g/dL (6.6-8.7)
[2024-11-15 09:16] LABS: Basophils % 0.5 %; Eosinophils # 0.1 10^3/uL (0.0-0.8); Hematocrit 44.6 % (37-53); Lymphocytes # 1.9 10^3/uL (0.8-4.8); Lymphocytes % 29.9 %; Mean Corpuscular HGB Conc 31.6 g/dL (30-55); Mean Corpuscular Hemoglobin 25.7 pg (27-33); Mean Corpuscular Volume 81.2 fl (82-101); Mean Platelet Volume 9.4 fL (7.4-10.4); Monocytes # 0.5 10^3/uL (0.2-0.9); Monocytes % 7.8 %; Neutrophils # 3.82 10^3/uL (1.8-7.7); Neutrophils % 59.5 %; Nucleated Red Blood Cells % 0 %; Platelet Count 240 10^3/cmm (157-399); Red Blood Count 5.49 10^6/uL (3.85-5.65); Red Cell Distribution Width 13.7 % (12.1-15.1); White Blood Count 6.42 10^3/uL (3.29-11.43)
[2024-11-15 09:48] LABS: Alanine Aminotransferase < 5 U/L (0-41); Aspartate Amino Transferase 5 U/L (0-40); Creatinine Clr Calc Pharmacy 106.1874; Thyroid Stimulating Hormone 1.77 uIU/mL (0.27-4.20); Total Bilirubin 0.2 mg/dL (0.15-1.2)
[2024-11-15 09:54] LABS: Potassium 4.7 mmol/L (3.5-5.1)
[2024-11-15 10:26] LABS: Albumin Level 4.4 g/dL (3.5-5.2); Alkaline Phosphatase 107 U/L (40-130); Anion Gap 17.7 (5-19); Blood Urea Nitrogen 22 mg/dL (8-23); Calcium 9.8 mg/dL (8.5-10.5); Carbon Dioxide 27 mmol/L (22-29); Chloride 91 mmol/L (98-107); Globulin 3.6 g/dL (1.3-4.6); Glomerular Filtration Rate 74.1 mL/min (90-130); Glucose 128 mg/dL (65-115); Osmolality Calculated 277 mOsm/kg (285-295); Sodium 131 mmol/L (136-145)
[2024-11-15] MEDS: nivolumab 240 MG in sodium chloride 0.9% 250 ML 548 MG IV (11:40)
[2024-11-15 12:17] VITALS: BP 149/93; PULSE 56; RESP 17; TEMP 36.2; O2SAT 94
[2024-11-29 07:40] LABS: Basophils % 0.9 %; Eosinophils # 0.1 10^3/uL (0.0-0.8); Lymphocytes # 1.8 10^3/uL (0.8-4.8); Lymphocytes % 39.9 %; Mean Corpuscular HGB Conc 31.6 g/dL (30-55); Mean Corpuscular Hemoglobin 25.5 pg (27-33); Mean Corpuscular Volume 80.7 fl (82-101); Monocytes # 0.5 10^3/uL (0.2-0.9); Neutrophils # 2.06 10^3/uL (1.8-7.7); Neutrophils % 46.2 %; Nucleated Red Blood Cells % 0 %; Platelet Count 187 10^3/cmm (157-399); Red Blood Count 5.33 10^6/uL (3.85-5.65); Red Cell Distribution Width 14.6 % (12.1-15.1); White Blood Count 4.46 10^3/uL (3.29-11.43)
[2024-11-29 08:08] LABS: Alanine Aminotransferase 40 U/L (0-41); Albumin Level 4.3 g/dL (3.5-5.2); Alkaline Phosphatase 102 U/L (40-130); Anion Gap 15.7 (5-19); Aspartate Amino Transferase 31 U/L (0-40); Blood Urea Nitrogen 16 mg/dL (8-23); Calcium 9.4 mg/dL (8.5-10.5); Carbon Dioxide 29 mmol/L (22-29); Chloride 95 mmol/L (98-107); Creatinine Clr Calc Pharmacy 84.5922; Glomerular Filtration Rate 74.1 mL/min (90-130); Glucose 122 mg/dL (65-115); Osmolality Calculated 282 mOsm/kg (285-295); Potassium 4.7 mmol/L (3.5-5.1); Sodium 135 mmol/L (136-145); Thyroid Stimulating Hormone 1.66 uIU/mL (0.27-4.20); Total Bilirubin 0.4 mg/dL (0.15-1.2); Total Protein 7.3 g/dL (6.6-8.7)
[2024-11-29 09:31] LABS: Ferritin 48 ng/mL (30-400); Iron 75 ug/dL (59-158); Percent Saturation 19.3 % (20-50); Total Iron Binding Capacity 387 mcg/dl; Unsaturated Iron Binding 312 ug/dL (112-347)
[2024-11-29] MEDS: nivolumab 240 MG in sodium chloride 0.9% 250 ML 548 MG IV (10:08)
[2024-11-29 10:58] VITALS: BP 135/87; PULSE 60; RESP 16; TEMP 36.9; O2SAT 99
== END 2024-11-29 23:59 | disposition home or self-care (01) ==
PROVIDERS: PCP Family Medicine; Visit Provider Nurse Practitioner Family
DX: Z53.9 Procedure and treatment not carried out, unspecified reason; Z51.12 Encounter for antineoplastic immunotherapy; C64.2 Malignant neoplasm of left kidney, except renal pelvis; R71.8 Other abnormality of red blood cells; Z79.620 Long term (current) use of immunosuppressive biologic; Z87.891 Personal history of nicotine dependence
CPT/HCPCS: 36415; 80053; 82728; 83540; 83550; 83615; 84439; 84443; 84481; 85025; 96413; 99214; A4222; J7050; J9299

== ENCOUNTER 2024-12-27 08:00 | Oncology outpatient (recurring) (ONCR) | payer MEDICARE, OTHER, SELFPAY ==
[2024-12-13 08:09] LABS: Basophils % 0.7 %; Eosinophils # 0.1 10^3/uL (0.0-0.8); Eosinophils % 1.8 %; Hematocrit 44.4 % (37-53); Lymphocytes % 44.1 %; Mean Corpuscular HGB Conc 32.4 g/dL (30-55); Mean Corpuscular Hemoglobin 26.2 pg (27-33); Mean Corpuscular Volume 80.7 fl (82-101); Mean Platelet Volume 9.2 fL (7.4-10.4); Monocytes # 0.5 10^3/uL (0.2-0.9); Monocytes % 10.4 %; Neutrophils # 1.93 10^3/uL (1.8-7.7); Neutrophils % 42.8 %; Nucleated Red Blood Cells % 0 %; Platelet Count 180 10^3/cmm (157-399); Red Cell Distribution Width 15.6 % (12.1-15.1); White Blood Count 4.51 10^3/uL (3.29-11.43)
[2024-12-13 08:36] LABS: Alanine Aminotransferase 47 U/L (0-41); Albumin Level 4.3 g/dL (3.5-5.2); Alkaline Phosphatase 94 U/L (40-130); Aspartate Amino Transferase 31 U/L (0-40); Blood Urea Nitrogen 23 mg/dL (8-23); Calcium 9.5 mg/dL (8.5-10.5); Carbon Dioxide 27 mmol/L (22-29); Chloride 94 mmol/L (98-107); Globulin 3.4 g/dL (1.3-4.6); Glomerular Filtration Rate 74.1 mL/min (90-130); Glucose 117 mg/dL (65-115); Osmolality Calculated 277 mOsm/kg (285-295); Sodium 131 mmol/L (136-145); Thyroid Stimulating Hormone 2.93 uIU/mL (0.27-4.20); Total Bilirubin 0.4 mg/dL (0.15-1.2); Total Protein 7.7 g/dL (6.6-8.7)
[2024-12-13] MEDS: nivolumab 240 MG in sodium chloride 0.9% 250 ML 548 MG IV (09:20)
[2024-12-13 10:03] VITALS: BP 127/82; PULSE 84; RESP 18; TEMP 36.4; O2SAT 99
[2024-12-27 07:44] LABS: Basophils % 0.8 %; Eosinophils # 0.1 10^3/uL (0.0-0.8); Hematocrit 44.1 % (37-53); Lymphocytes # 1.6 10^3/uL (0.8-4.8); Lymphocytes % 40.6 %; Mean Corpuscular HGB Conc 32.9 g/dL (30-55); Mean Corpuscular Hemoglobin 26.8 pg (27-33); Mean Corpuscular Volume 81.5 fl (82-101); Mean Platelet Volume 9.6 fL (7.4-10.4); Monocytes # 0.5 10^3/uL (0.2-0.9); Monocytes % 11.8 %; Neutrophils # 1.78 10^3/uL (1.8-7.7); Neutrophils % 44.5 %; Nucleated Red Blood Cells % 0 %; Platelet Count 201 10^3/cmm (157-399); Red Blood Count 5.41 10^6/uL (3.85-5.65); Red Cell Distribution Width 17.2 % (12.1-15.1); White Blood Count 3.99 10^3/uL (3.29-11.43)
[2024-12-27 08:33] LABS: Alanine Aminotransferase 47 U/L (0-41); Albumin Level 4.4 g/dL (3.5-5.2); Alkaline Phosphatase 85 U/L (40-130); Anion Gap 13.9 (5-19); Blood Urea Nitrogen 19 mg/dL (8-23); Calcium 9.3 mg/dL (8.5-10.5); Carbon Dioxide 28 mmol/L (22-29); Chloride 101 mmol/L (98-107); Creatinine Clr Calc Pharmacy 83.6976; Globulin 3.2 g/dL (1.3-4.6); Glomerular Filtration Rate 74.1 mL/min (90-130); Glucose 115 mg/dL (65-115); Osmolality Calculated 289 mOsm/kg (285-295); Potassium 4.9 mmol/L (3.5-5.1); Sodium 138 mmol/L (136-145); Total Bilirubin 0.4 mg/dL (0.15-1.2); Total Protein 7.6 g/dL (6.6-8.7)
[2024-12-27 08:34] LABS: Aspartate Amino Transferase 37 U/L (0-40)
[2024-12-27] MEDS: nivolumab 240 MG in sodium chloride 0.9% 250 ML 548 MG IV (10:42)
[2024-12-27 11:22] VITALS: BP 141/93; PULSE 48; RESP 16; TEMP 36.1; O2SAT 97
[2024-12-27 13:26] LABS: Ferritin 83 ng/mL (30-400); Iron 174 ug/dL (59-158)
[2024-12-27 13:30] LABS: Percent Saturation 44.5 % (20-50); Total Iron Binding Capacity 391 mcg/dl; Unsaturated Iron Binding 217 ug/dL (112-347)
== END 2024-12-27 23:59 | disposition home or self-care (01) ==
PROVIDERS: Nurse Practitioner Family; PCP Family Medicine; Visit Provider Internal Medicine Medical Oncology
DX: Z53.9 Procedure and treatment not carried out, unspecified reason; Z51.12 Encounter for antineoplastic immunotherapy; C64.2 Malignant neoplasm of left kidney, except renal pelvis; C79.89 Secondary malignant neoplasm of other specified sites; M62.838 Other muscle spasm; Z79.620 Long term (current) use of immunosuppressive biologic; Z79.899 Other long term (current) drug therapy; Z87.891 Personal history of nicotine dependence
CPT/HCPCS: 80053; 82728; 83540; 83550; 83735; 84443; 85025; 96413; 99214; A4222; J7050; J9299

== ENCOUNTER 2025-01-24 09:15 | Oncology outpatient (recurring) (ONCR) | payer MEDICARE, OTHER, SELFPAY ==
[2025-01-10 08:33] LABS: Basophils % 0.4 %; Eosinophils # 0.1 10^3/uL (0.0-0.8); Eosinophils % 2.2 %; Hematocrit 44.3 % (37-53); Lymphocytes # 1.9 10^3/uL (0.8-4.8); Mean Corpuscular HGB Conc 32.7 g/dL (30-55); Mean Corpuscular Hemoglobin 27.3 pg (27-33); Mean Corpuscular Volume 83.4 fl (82-101); Mean Platelet Volume 9.2 fL (7.4-10.4); Monocytes # 0.6 10^3/uL (0.2-0.9); Monocytes % 12.1 %; Neutrophils # 2.02 10^3/uL (1.8-7.7); Neutrophils % 44.3 %; Nucleated Red Blood Cells % 0 %; Platelet Count 174 10^3/cmm (157-399); Red Blood Count 5.31 10^6/uL (3.85-5.65); Red Cell Distribution Width 17.4 % (12.1-15.1); White Blood Count 4.56 10^3/uL (3.29-11.43)
[2025-01-10 09:07] LABS: Alanine Aminotransferase 45 U/L (0-41); Albumin Level 4.3 g/dL (3.5-5.2); Alkaline Phosphatase 77 U/L (40-130); Anion Gap 14.1 (5-19); Aspartate Amino Transferase 32 U/L (0-40); Blood Urea Nitrogen 18 mg/dL (8-23); Calcium 9.2 mg/dL (8.5-10.5); Carbon Dioxide 28 mmol/L (22-29); Chloride 98 mmol/L (98-107); Creatinine Clr Calc Pharmacy 83.6976; Globulin 2.7 g/dL (1.3-4.6); Glomerular Filtration Rate 74.1 mL/min (90-130); Glucose 118 mg/dL (65-115); Osmolality Calculated 285 mOsm/kg (285-295); Potassium 4.1 mmol/L (3.5-5.1); Sodium 136 mmol/L (136-145); Thyroid Stimulating Hormone 2.12 uIU/mL (0.27-4.20); Total Bilirubin 0.4 mg/dL (0.15-1.2)
[2025-01-10] MEDS: nivolumab 240 MG in sodium chloride 0.9% 250 ML 548 MG IV (09:47)
[2025-01-10 10:24] VITALS: BP 143/93; PULSE 49; RESP 17; O2SAT 95
--- NOTE | 2025-01-21 13:00 | PETR_ITS ---
PROCEDURE INFORMATION: Exam: PET/CT Skull Base to Mid-thigh Exam date and time: 01/21/2025 1:41 PM Age: 69 years old Clinical indication: Condition or disease; Primary cancer: Metastatic renal cell carcinoma LABS AND CLINICAL REPORTS: Glucose: 113 mg/dl Treatment strategy for malignancy (PET staging): Restaging (PS) TECHNIQUE: Imaging protocol: Following at least four-hour fasting and following the injection of radiopharmaceutical, low dose CT images were obtained. Then, PET images were obtained. Attenuation corrected images were constructed using the CT scan. Fused images of PET and CT were reviewed. The standardized uptake values (SUV) reported below are maximum values within a region of interest, expressed in gm/ml. Exam includes orbital meatal line to mid-thigh. SUV normalization method: BodyWeight Radiopharmaceutical: 11.85 mCi F-18 FDG (Fluorodeoxyglucose), IV. Time of imaging post radiopharmaceutical administration: 47 minutes Injection site: right ac COMPARISON: PT PET skull to thigh SUBS [id number] 09/24/2024 1:16 PM FINDINGS: Brain: Visualized brain has normal physiologic uptake. Pharynx: No abnormal uptake. Larynx: No abnormal uptake. Lungs, pleura and trachea: No abnormal uptake. Mild bibasilar subsegmental atelectasis versus scarring. No consolidation or mass. Heart: Normal physiologic uptake. Mediastinal space: No abnormal uptake. Diaphragm: Decreased nodular thickening along the left posteromedial hemidiaphragm, index lesion measuring 2.1 x 2.3 cm on axial image 136 showing SUV max 10.8, previously 3.0 x 2.8 cm with SUV max 30.6. More posterior lesion is grossly stable in size and metabolic activity. Liver: No abnormal uptake. Gallbladder and biliary ducts: No abnormal uptake. Pancreas: No abnormal uptake. Spleen: Stable size splenic mass measures approximately 9.5 x 6.5 cm on axial image 152 with mildly increased cystic/necrotic component showing decreased peripheral FDG uptake with SUV max 13.5, previously 25.2. Adrenal glands: Normal right adrenal gland. Left adrenal gland not definitely visualized, see below. Kidneys and ureters: Prior left nephrectomy. Irregular FDG avid mass at the nephrectomy/adrenal bed measures 4.1 x 3.2 cm on axial image 159 (previously 5.1 x 4.5 cm) with decreased size superomedial extension involving the left retrocrural space (SUV max 10.6, previously 19.4) and extending inferiorly along the left para-aortic region with measurement of 2.2 x 1.8 cm on axial image 171 (previously 3.3 x 2.7 cm). Some of this abnormality, particularly the more inferior component, likely represents abnormal lymphadenopathy. Punctate nonobstructive right nephrolith. Otherwise unremarkable right kidney and ureter. Stomach and bowel: Diffuse FDG uptake along the somewhat underdistended stomach similar to prior. No abnormal bowel uptake. Vasculature: No abnormal uptake. Mild systemic atherosclerotic calcification without aortic aneurysm. Stable pulmonary arterial dilatation. Lymph nodes: See Kidneys and ureters finding. Skeleton: No abnormal uptake in the visualized axial and appendicular skeleton. Degenerative change along the axial skeletal system and shoulders. Soft tissues: No abnormal uptake in the visualized head, neck, chest, abdomen, pelvis, and extremities. Small fat containing umbilical hernia. METRICS: Mediastinal blood pool: SUV mean 2.3 Liver uptake: SUV mean 2.7 PET/PET skull to thigh SUBS [id number] IMPRESSION: 1. Partial treatment response with decreased size and FDG avidity of left nephrectomy bed mass extending to the left retrocrural space and inferiorly along the left para-aortic region (possible lymphadenopathy), stable size splenic mass with increased cystic/necrotic component and decreased FDG uptake, and stable to decreased left posteromedial diaphragmatic masses. 2. Similar diffuse FDG uptake along the stomach may be physiologic or inflammatory. 3. Punctate nonobstructive right nephrolith. 4. Pulmonary arterial dilatation may be seen in setting of pulmonary hypertension.
[2025-01-24 08:52] LABS: Basophils % 0.7 %; Eosinophils # 0.1 10^3/uL (0.0-0.8); Eosinophils % 2.7 %; Hematocrit 43.4 % (37-53); Lymphocytes # 1.7 10^3/uL (0.8-4.8); Lymphocytes % 37.8 %; Mean Corpuscular HGB Conc 33.2 g/dL (30-55); Mean Corpuscular Hemoglobin 27.9 pg (27-33); Mean Corpuscular Volume 84.1 fl (82-101); Mean Platelet Volume 8.9 fL (7.4-10.4); Monocytes # 0.5 10^3/uL (0.2-0.9); Monocytes % 11.2 %; Neutrophils # 2.11 10^3/uL (1.8-7.7); Neutrophils % 47.4 %; Nucleated Red Blood Cells % 0 %; Platelet Count 164 10^3/cmm (157-399); Red Blood Count 5.16 10^6/uL (3.85-5.65); White Blood Count 4.45 10^3/uL (3.29-11.43)
[2025-01-24 09:21] LABS: Alanine Aminotransferase 39 U/L (0-41); Albumin Level 4.5 g/dL (3.5-5.2); Alkaline Phosphatase 79 U/L (40-130); Anion Gap 14.3 (5-19); Aspartate Amino Transferase 29 U/L (0-40); Blood Urea Nitrogen 23 mg/dL (8-23); Calcium 9.5 mg/dL (8.5-10.5); Carbon Dioxide 29 mmol/L (22-29); Chloride 92 mmol/L (98-107); Creatinine Clr Calc Pharmacy 69.5987; Glucose 108 mg/dL (65-115); Osmolality Calculated 276 mOsm/kg (285-295); Potassium 4.3 mmol/L (3.5-5.1); Sodium 131 mmol/L (136-145); Thyroid Stimulating Hormone 2.43 uIU/mL (0.27-4.20); Total Bilirubin 0.4 mg/dL (0.15-1.2); Total Protein 7.5 g/dL (6.6-8.7)
[2025-01-24] MEDS: nivolumab 240 MG in sodium chloride 0.9% 250 ML 548 MG IV (10:31)
[2025-01-24 11:13] VITALS: BP 137/87; PULSE 52; RESP 17; TEMP 36.7; O2SAT 92
== END 2025-01-24 23:59 | disposition home or self-care (01) ==
PROVIDERS: PCP Family Medicine; Visit Provider Internal Medicine Medical Oncology
DX: Z53.9 Procedure and treatment not carried out, unspecified reason; Z51.12 Encounter for antineoplastic immunotherapy; C64.2 Malignant neoplasm of left kidney, except renal pelvis; R03.0 Elevated blood-pressure reading, without diagnosis of hypertension; Z79.620 Long term (current) use of immunosuppressive biologic; Z87.891 Personal history of nicotine dependence; Z79.899 Other long term (current) drug therapy
CPT/HCPCS: 78815; 80053; 84443; 85025; 96413; 99214; A4222; A9552; J7050; J9299

== ENCOUNTER 2025-02-21 08:30 | Oncology outpatient (recurring) (ONCR) | payer MEDICARE, OTHER, SELFPAY ==
[2025-02-07 08:54] LABS: Basophils % 0.4 %; Eosinophils # 0.1 10^3/uL (0.0-0.8); Eosinophils % 2.9 %; Hematocrit 42.5 % (37-53); Lymphocytes # 1.8 10^3/uL (0.8-4.8); Lymphocytes % 40.1 %; Mean Corpuscular HGB Conc 33.9 g/dL (30-55); Mean Corpuscular Hemoglobin 28.5 pg (27-33); Mean Corpuscular Volume 84.2 fl (82-101); Mean Platelet Volume 8.8 fL (7.4-10.4); Monocytes # 0.5 10^3/uL (0.2-0.9); Monocytes % 11.1 %; Neutrophils # 2.05 10^3/uL (1.8-7.7); Neutrophils % 45.5 %; Nucleated Red Blood Cells % 0 %; Platelet Count 193 10^3/cmm (157-399); Red Blood Count 5.05 10^6/uL (3.85-5.65); Red Cell Distribution Width 17.8 % (12.1-15.1); White Blood Count 4.51 10^3/uL (3.29-11.43)
[2025-02-07 09:21] LABS: Alanine Aminotransferase 43 U/L (0-41); Albumin Level 4.2 g/dL (3.5-5.2); Alkaline Phosphatase 84 U/L (40-130); Anion Gap 14.8 (5-19); Aspartate Amino Transferase 33 U/L (0-40); Blood Urea Nitrogen 19 mg/dL (8-23); Calcium 9.5 mg/dL (8.5-10.5); Carbon Dioxide 30 mmol/L (22-29); Chloride 94 mmol/L (98-107); Creatinine Clr Calc Pharmacy 75.9259; Globulin 3.4 g/dL (1.3-4.6); Glomerular Filtration Rate 66.4 mL/min (90-130); Glucose 102 mg/dL (65-115); Osmolality Calculated 282 mOsm/kg (285-295); Potassium 3.8 mmol/L (3.5-5.1); Sodium 135 mmol/L (136-145); Thyroid Stimulating Hormone 1.62 uIU/mL (0.27-4.20); Total Bilirubin 0.4 mg/dL (0.15-1.2); Total Protein 7.6 g/dL (6.6-8.7)
[2025-02-07] MEDS: nivolumab 240 MG in sodium chloride 0.9% 250 ML 548 MG IV (10:24)
[2025-02-07 11:01] VITALS: BP 131/88; PULSE 59; RESP 18; TEMP 36.9
[2025-02-21 08:53] LABS: Basophils % 0.5 %; Eosinophils # 0.1 10^3/uL (0.0-0.8); Eosinophils % 2.2 %; Hematocrit 43.8 % (37-53); Lymphocytes # 1.8 10^3/uL (0.8-4.8); Lymphocytes % 43.3 %; Mean Corpuscular HGB Conc 33.8 g/dL (30-55); Mean Corpuscular Hemoglobin 29.2 pg (27-33); Mean Corpuscular Volume 86.6 fl (82-101); Mean Platelet Volume 8.9 fL (7.4-10.4); Monocytes # 0.4 10^3/uL (0.2-0.9); Monocytes % 10.4 %; Neutrophils % 43.6 %; Nucleated Red Blood Cells % 0 %; Platelet Count 202 10^3/cmm (157-399); Red Blood Count 5.06 10^6/uL (3.85-5.65); Red Cell Distribution Width 18.1 % (12.1-15.1); White Blood Count 4.13 10^3/uL (3.29-11.43)
[2025-02-21 09:27] LABS: Alanine Aminotransferase 46 U/L (0-41); Albumin Level 4.4 g/dL (3.5-5.2); Alkaline Phosphatase 79 U/L (40-130); Aspartate Amino Transferase 37 U/L (0-40); Blood Urea Nitrogen 18 mg/dL (8-23); Calcium 9.5 mg/dL (8.5-10.5); Carbon Dioxide 31 mmol/L (22-29); Chloride 94 mmol/L (98-107); Creatinine Clr Calc Pharmacy 82.9816; Globulin 3.2 g/dL (1.3-4.6); Glomerular Filtration Rate 74.1 mL/min (90-130); Glucose 107 mg/dL (65-115); Osmolality Calculated 282 mOsm/kg (285-295); Sodium 135 mmol/L (136-145); Thyroid Stimulating Hormone 1.89 uIU/mL (0.27-4.20); Total Bilirubin 0.4 mg/dL (0.15-1.2); Total Protein 7.6 g/dL (6.6-8.7)
[2025-02-21 09:29] LABS: Anion Gap 13.9 (5-19); Potassium 3.9 mmol/L (3.5-5.1)
[2025-02-21] MEDS: nivolumab 240 MG in sodium chloride 0.9% 250 ML 548 MG IV (10:41)
== END 2025-02-21 23:59 | disposition home or self-care (01) ==
PROVIDERS: PCP Family Medicine; Visit Provider Internal Medicine Medical Oncology
DX: Z53.9 Procedure and treatment not carried out, unspecified reason; Z51.12 Encounter for antineoplastic immunotherapy; C64.2 Malignant neoplasm of left kidney, except renal pelvis; C77.5 Secondary and unspecified malignant neoplasm of intrapelvic lymph nodes; Z87.891 Personal history of nicotine dependence; Z90.5 Acquired absence of kidney; I10 Essential (primary) hypertension; Z79.899 Other long term (current) drug therapy
CPT/HCPCS: 80053; 84443; 85025; 96365; 96413; 99214; A4222; J7050; J9299

== ENCOUNTER 2025-03-21 09:15 | Oncology outpatient (recurring) (ONCR) | payer MEDICARE, OTHER, SELFPAY ==
[2025-03-07 10:46] LABS: Basophils % 0.6 %; Eosinophils # 0.2 10^3/uL (0.0-0.8); Eosinophils % 3.9 %; Hematocrit 42.5 % (37-53); Lymphocytes # 2.2 10^3/uL (0.8-4.8); Lymphocytes % 42.9 %; Mean Corpuscular HGB Conc 33.2 g/dL (30-55); Mean Corpuscular Hemoglobin 29.1 pg (27-33); Mean Corpuscular Volume 87.6 fl (82-101); Mean Platelet Volume 9.1 fL (7.4-10.4); Monocytes # 0.5 10^3/uL (0.2-0.9); Monocytes % 10.4 %; Neutrophils # 2.17 10^3/uL (1.8-7.7); Nucleated Red Blood Cells % 0 %; Platelet Count 164 10^3/cmm (157-399); Red Blood Count 4.85 10^6/uL (3.85-5.65); Red Cell Distribution Width 17.2 % (12.1-15.1); White Blood Count 5.17 10^3/uL (3.29-11.43)
[2025-03-07 11:12] LABS: Alanine Aminotransferase 39 U/L (0-41); Albumin Level 4.1 g/dL (3.5-5.2); Alkaline Phosphatase 68 U/L (40-130); Anion Gap 13.2 (5-19); Aspartate Amino Transferase 28 U/L (0-40); Blood Urea Nitrogen 18 mg/dL (8-23); Calcium 9.4 mg/dL (8.5-10.5); Carbon Dioxide 27 mmol/L (22-29); Chloride 100 mmol/L (98-107); Creatinine Clr Calc Pharmacy 83.1607; Globulin 2.9 g/dL (1.3-4.6); Glomerular Filtration Rate 74.1 mL/min (90-130); Glucose 102 mg/dL (65-115); Osmolality Calculated 284 mOsm/kg (285-295); Potassium 4.2 mmol/L (3.5-5.1); Sodium 136 mmol/L (136-145); Thyroid Stimulating Hormone 1.71 uIU/mL (0.27-4.20); Total Bilirubin 0.4 mg/dL (0.15-1.2)
[2025-03-07] MEDS: nivolumab 240 MG in sodium chloride 0.9% 250 ML 548 MG IV (11:20)
[2025-03-07 11:53] VITALS: BP 132/87; PULSE 65; RESP 18; TEMP 36.6; O2SAT 97
[2025-03-21 09:31] LABS: Basophils % 0.6 %; Eosinophils # 0.2 10^3/uL (0.0-0.8); Eosinophils % 4.5 %; Hematocrit 43.3 % (37-53); Lymphocytes # 2.1 10^3/uL (0.8-4.8); Lymphocytes % 44.9 %; Mean Corpuscular HGB Conc 33.9 g/dL (30-55); Mean Corpuscular Hemoglobin 29.7 pg (27-33); Mean Corpuscular Volume 87.5 fl (82-101); Mean Platelet Volume 9.3 fL (7.4-10.4); Monocytes # 0.5 10^3/uL (0.2-0.9); Monocytes % 11.1 %; Neutrophils # 1.81 10^3/uL (1.8-7.7); Neutrophils % 38.7 %; Nucleated Red Blood Cells % 0 %; Platelet Count 201 10^3/cmm (157-399); Red Blood Count 4.95 10^6/uL (3.85-5.65); Red Cell Distribution Width 16.3 % (12.1-15.1); White Blood Count 4.68 10^3/uL (3.29-11.43)
[2025-03-21 10:00] LABS: Alanine Aminotransferase 45 U/L (0-41); Albumin Level 4.5 g/dL (3.5-5.2); Alkaline Phosphatase 76 U/L (40-130); Anion Gap 15.1 (5-19); Aspartate Amino Transferase 34 U/L (0-40); Blood Urea Nitrogen 20 mg/dL (8-23); Calcium 9.7 mg/dL (8.5-10.5); Carbon Dioxide 30 mmol/L (22-29); Chloride 93 mmol/L (98-107); Globulin 3.3 g/dL (1.3-4.6); Glomerular Filtration Rate 74.1 mL/min (90-130); Glucose 107 mg/dL (65-115); Osmolality Calculated 281 mOsm/kg (285-295); Potassium 4.1 mmol/L (3.5-5.1); Sodium 134 mmol/L (136-145); Total Bilirubin 0.5 mg/dL (0.15-1.2); Total Protein 7.8 g/dL (6.6-8.7)
[2025-03-21] MEDS: nivolumab 240 MG in sodium chloride 0.9% 250 ML 548 MG IV (11:17)
[2025-03-21 11:54] VITALS: BP 147/90; PULSE 66; RESP 16; TEMP 36.8; O2SAT 97
== END 2025-03-21 23:59 | disposition home or self-care (01) ==
PROVIDERS: Nurse Practitioner; PCP Family Medicine; Visit Provider Internal Medicine Medical Oncology
DX: Z53.9 Procedure and treatment not carried out, unspecified reason; Z51.12 Encounter for antineoplastic immunotherapy; C64.2 Malignant neoplasm of left kidney, except renal pelvis; Z79.620 Long term (current) use of immunosuppressive biologic; Z87.891 Personal history of nicotine dependence; R03.0 Elevated blood-pressure reading, without diagnosis of hypertension
CPT/HCPCS: 80053; 84443; 85025; 96413; 99214; A4222; J7050; J9299

== ENCOUNTER 2025-04-04 08:37 | Oncology outpatient (recurring) (ONCR) | payer MEDICARE, OTHER, SELFPAY ==
[2025-04-04 08:59] LABS: Basophils % 0.7 %; Eosinophils # 0.3 10^3/uL (0.0-0.8); Eosinophils % 5.6 %; Hematocrit 41.8 % (37-53); Lymphocytes # 1.6 10^3/uL (0.8-4.8); Lymphocytes % 36.9 %; Mean Corpuscular HGB Conc 34.2 g/dL (30-55); Mean Corpuscular Hemoglobin 30.5 pg (27-33); Mean Corpuscular Volume 89.1 fl (82-101); Mean Platelet Volume 8.9 fL (7.4-10.4); Monocytes # 0.5 10^3/uL (0.2-0.9); Monocytes % 10.6 %; Neutrophils # 2.05 10^3/uL (1.8-7.7); Nucleated Red Blood Cells % 0 %; Platelet Count 168 10^3/cmm (157-399); Red Blood Count 4.69 10^6/uL (3.85-5.65); Red Cell Distribution Width 15.2 % (12.1-15.1); White Blood Count 4.45 10^3/uL (3.29-11.43)
[2025-04-04 09:28] LABS: Alanine Aminotransferase 44 U/L (0-41); Albumin Level 4.3 g/dL (3.5-5.2); Alkaline Phosphatase 74 U/L (40-130); Anion Gap 13.1 (5-19); Aspartate Amino Transferase 32 U/L (0-40); Blood Urea Nitrogen 21 mg/dL (8-23); Calcium 9.7 mg/dL (8.5-10.5); Carbon Dioxide 30 mmol/L (22-29); Chloride 96 mmol/L (98-107); Globulin 3.1 g/dL (1.3-4.6); Glomerular Filtration Rate 74.1 mL/min (90-130); Glucose 108 mg/dL (65-115); Osmolality Calculated 284 mOsm/kg (285-295); Potassium 4.1 mmol/L (3.5-5.1); Sodium 135 mmol/L (136-145); Thyroid Stimulating Hormone 1.46 uIU/mL (0.27-4.20); Total Bilirubin 0.5 mg/dL (0.15-1.2); Total Protein 7.4 g/dL (6.6-8.7)
[2025-04-04] MEDS: nivolumab 240 MG in sodium chloride 0.9% 250 ML 548 MG IV (11:24)
[2025-04-04 11:57] VITALS: BP 151/94; PULSE 58; RESP 16; TEMP 36.1; O2SAT 96
== END 2025-04-04 23:59 | disposition home or self-care (01) ==
PROVIDERS: Nurse Practitioner Family; PCP Family Medicine; Visit Provider Internal Medicine Medical Oncology
DX: Z51.12 Encounter for antineoplastic immunotherapy (principal); C64.2 Malignant neoplasm of left kidney, except renal pelvis; Z79.899 Other long term (current) drug therapy; Z79.620 Long term (current) use of immunosuppressive biologic
CPT/HCPCS: 80053; 84443; 85025; 96413; A4222; J7050; J9299

== ENCOUNTER 2025-05-02 09:45 | Oncology outpatient (recurring) (ONCR) | payer MEDICARE, OTHER, SELFPAY ==
[2025-04-18 10:07] LABS: Hematocrit 41.4 % (37-53); Hemoglobin 14.20 g/dL (11.27-16.99); Mean Corpuscular HGB Conc 34.3 g/dL (30-55); Mean Corpuscular Hemoglobin 30.8 pg (27-33); Mean Corpuscular Volume 89.8 fl (82-101); Nucleated Red Blood Cells % 0 %; Platelet Count 177 10^3/cmm (157-399); Red Blood Count 4.61 10^6/uL (3.85-5.65); White Blood Count 4.72 10^3/uL (3.29-11.43)
[2025-04-18 10:51] LABS: Alanine Aminotransferase 237 U/L (0-41); Albumin Level 4.3 g/dL (3.5-5.2); Alkaline Phosphatase 64 U/L (40-130); Anion Gap 14.0 (5-19); Aspartate Amino Transferase 112 U/L (0-40); Blood Urea Nitrogen 19 mg/dL (8-23); Calcium 9.5 mg/dL (8.5-10.5); Carbon Dioxide 30 mmol/L (22-29); Chloride 95 mmol/L (98-107); Creatinine Clr Calc Pharmacy 75.2754; Globulin 3.0 g/dL (1.3-4.6); Glucose 116 mg/dL (65-115); Osmolality Calculated 283 mOsm/kg (285-295); Potassium 4.0 mmol/L (3.5-5.1); Sodium 135 mmol/L (136-145); Total Protein 7.3 g/dL (6.6-8.7)
[2025-04-18 11:01] LABS: Thyroid Stimulating Hormone 1.50 uIU/mL (0.27-4.20)
[2025-04-18] MEDS: nivolumab 240 MG in sodium chloride 0.9% 250 ML 548 MG IV (12:18)
[2025-04-18 13:03] VITALS: BP 148/100; PULSE 58; RESP 17; TEMP 36.6; O2SAT 98
--- NOTE | 2025-04-29 12:30 | PETR_ITS ---
PROCEDURE INFORMATION: Exam: PET/CT Skull Base to Mid-thigh Exam date and time: 04/29/2025 1:29 PM Age: 69 years old Clinical indication: Condition or disease; Primary cancer: Metastatic renal cell carcinoma LABS AND CLINICAL REPORTS: Glucose: 103 mg/dl Treatment strategy for malignancy (PET staging): Restaging (PS) TECHNIQUE: Imaging protocol: Following at least four-hour fasting and following the injection of radiopharmaceutical, low dose CT images were obtained. Then, PET images were obtained. Attenuation corrected images were constructed using the CT scan. Fused images of PET and CT were reviewed. The standardized uptake values (SUV) reported below are maximum values within a region of interest, expressed in gm/ml. Exam includes orbital meatal line to mid-thigh. SUV normalization method: BodyWeight Radiopharmaceutical: 12.92 mCi F-18 FDG (Fluorodeoxyglucose), IV. Time of imaging post radiopharmaceutical administration: 45 minutes Injection site: left ac COMPARISON: PT PET skull to thigh SUBS [id number] 01/21/2025 1:41 PM FINDINGS: Brain: On the nondedicated limited brain images there is no abnormal distribution of the radiotracer in the arriaza and white matter. Pharynx: Normal distribution of the radiotracer in nasopharyngeal, and oropharyngeal structures. Larynx: Normal distribution of the radiotracer in laryngeal structures. Lungs, pleura and trachea: No abnormal uptake. No lung nodules or masses. No pleural effusion. Heart: Normal physiologic uptake. Stable mild cardiomegaly. There is no pericardial effusion. mediastinal space: No abnormal uptake. Mediastinal space: No abnormal uptake. Liver: Normal size without abnormal radiotracer uptake. Gallbladder and biliary ducts: No abnormal uptake. Pancreas: Normal distribution of radiotracer. Spleen: Central necrotic metastatic mass measures 9.4 x 6 x 9 cm/11.2 SUV, previously 10.2 x 6 x 11 cm/13.5 SUV. The maximal size of the spleen decreased from 15 cm to 14.5 cm. Adrenal glands: No abnormal uptake in the right adrenal. The left adrenal appears involved in the left retroperitoneal malignant mass described below. Kidneys and ureters: Normal physiologic uptake in the solitary right kidney. Status post left nephrectomy. Stomach and bowel: Persistent diffusely increased uptake in the stomach is probably benign physiologic in nature. Long segments of increased uptake in the small bowel, cecum and the sigmoid colon are benign. Intraperitoneal and retroperitoneal spaces: Metastasis adjacent to the left diaphragm on axial image 124 measures 2 cm/11.3 SUV, previously 2.3 cm/10.8 SUV. Malignant mass within the resection bed of the left kidney/in the left para-aortic space is stable in size (about 4.1 x 3.7 x 5.3 cm) with interval increase in maximal uptake from 12.4 SUV to 25.8 SUV. No ascites. Urinary bladder: Normal physiologic uptake. Reproductive: No abnormal uptake. Vasculature: No abnormal uptake. No aortic aneurysm. Lymph nodes: See above in retroperitoneal spaces . No lymphadenopathy in the head, neck, chest, pelvis, and extremities. Skeleton: No abnormal uptake in the visualized axial and appendicular skeleton. Soft tissues: No abnormal uptake in the visualized head, neck, chest, abdomen, pelvis, and extremities. METRICS: Mediastinal blood pool maximal uptake is 3.3 SUV. Liver maximal uptake is 4.1 SUV. PET/PET skull to thigh SUBS [id number] IMPRESSION: In comparison with 01/21/2025 there are mixed changes with overall stable disease. 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 Local recurrence in the resection bed of the left kidney remained stable in size and significantly increased in uptake. Paradiaphragmatic metastasis is stable. No new metastatic sites.
[2025-05-02 09:48] LABS: Hematocrit 41.3 % (37-53); Hemoglobin 13.90 g/dL (11.27-16.99); Mean Corpuscular HGB Conc 33.7 g/dL (30-55); Mean Corpuscular Hemoglobin 30.9 pg (27-33); Mean Corpuscular Volume 91.8 fl (82-101); Nucleated Red Blood Cells % 0 %; Platelet Count 161 10^3/cmm (157-399); Red Blood Count 4.50 10^6/uL (3.85-5.65); White Blood Count 4.37 10^3/uL (3.29-11.43)
[2025-05-02 10:21] LABS: Alanine Aminotransferase 38 U/L (0-41); Albumin Level 4.3 g/dL (3.5-5.2); Alkaline Phosphatase 74 U/L (40-130); Anion Gap 14.1 (5-19); Aspartate Amino Transferase 30 U/L (0-40); Blood Urea Nitrogen 23 mg/dL (8-23); Calcium 9.4 mg/dL (8.5-10.5); Carbon Dioxide 28 mmol/L (22-29); Chloride 97 mmol/L (98-107); Creatinine Clr Calc Pharmacy 63.1439; Globulin 2.9 g/dL (1.3-4.6); Glucose 103 mg/dL (65-115); Osmolality Calculated 284 mOsm/kg (285-295); Potassium 4.1 mmol/L (3.5-5.1); Sodium 135 mmol/L (136-145); Thyroid Stimulating Hormone 1.57 uIU/mL (0.27-4.20); Total Protein 7.2 g/dL (6.6-8.7)
[2025-05-02] MEDS: nivolumab 240 MG in sodium chloride 0.9% 250 ML 548 MG IV (11:12)
[2025-05-02 12:10] VITALS: BP 158/98; PULSE 52; RESP 17; TEMP 36.6; O2SAT 97
== END 2025-05-02 16:25 | disposition home or self-care (01) ==
PROVIDERS: Nurse Practitioner Family; PCP Family Medicine; Visit Provider Internal Medicine Medical Oncology
DX: Z53.9 Procedure and treatment not carried out, unspecified reason; Z51.12 Encounter for antineoplastic immunotherapy; C64.2 Malignant neoplasm of left kidney, except renal pelvis; Z79.620 Long term (current) use of immunosuppressive biologic; Z87.891 Personal history of nicotine dependence; I10 Essential (primary) hypertension; Z79.899 Other long term (current) drug therapy
CPT/HCPCS: 36415; 78815; 80053; 84443; 85025; 96413; 99214; A4222; A9552; J7050; J9299

== ENCOUNTER 2025-05-30 08:00 | Oncology outpatient (recurring) (ONCR) | payer MEDICARE, OTHER, SELFPAY ==
[2025-05-16 08:07] LABS: Hematocrit 41.9 % (37-53); Hemoglobin 14.50 g/dL (11.27-16.99); Mean Corpuscular HGB Conc 34.6 g/dL (30-55); Mean Corpuscular Hemoglobin 31.3 pg (27-33); Mean Corpuscular Volume 90.5 fl (82-101); Nucleated Red Blood Cells % 0 %; Platelet Count 166 10^3/cmm (157-399); Red Blood Count 4.63 10^6/uL (3.85-5.65); White Blood Count 5.92 10^3/uL (3.29-11.43)
[2025-05-16 08:51] LABS: Alanine Aminotransferase 34 U/L (0-41); Albumin Level 4.2 g/dL (3.5-5.2); Alkaline Phosphatase 85 U/L (40-130); Anion Gap 12.3 (5-19); Aspartate Amino Transferase 31 U/L (0-40); Blood Urea Nitrogen 18 mg/dL (8-23); Calcium 9.2 mg/dL (8.5-10.5); Carbon Dioxide 32 mmol/L (22-29); Chloride 93 mmol/L (98-107); Creatinine Clr Calc Pharmacy 73.7340; Globulin 3.1 g/dL (1.3-4.6); Glucose 109 mg/dL (65-115); Osmolality Calculated 280 mOsm/kg (285-295); Potassium 3.3 mmol/L (3.5-5.1); Sodium 134 mmol/L (136-145); Thyroid Stimulating Hormone 2.82 uIU/mL (0.27-4.20); Total Protein 7.3 g/dL (6.6-8.7)
[2025-05-16] MEDS: nivolumab 240 MG in sodium chloride 0.9% 250 ML 548 MG IV (10:16)
[2025-05-16 10:55] VITALS: BP 139/90; PULSE 51; RESP 18; TEMP 36.2; O2SAT 98
[2025-05-30 08:16] LABS: Hematocrit 41.4 % (37-53); Hemoglobin 14.00 g/dL (11.27-16.99); Mean Corpuscular HGB Conc 33.8 g/dL (30-55); Mean Corpuscular Hemoglobin 30.9 pg (27-33); Mean Corpuscular Volume 91.4 fl (82-101); Nucleated Red Blood Cells % 0 %; Platelet Count 199 10^3/cmm (157-399); Red Blood Count 4.53 10^6/uL (3.85-5.65); White Blood Count 5.14 10^3/uL (3.29-11.43)
[2025-05-30 09:12] LABS: Alanine Aminotransferase 40 U/L (0-41); Albumin Level 4.5 g/dL (3.5-5.2); Alkaline Phosphatase 74 U/L (40-130); Anion Gap 14.9 (5-19); Aspartate Amino Transferase 34 U/L (0-40); Blood Urea Nitrogen 17 mg/dL (8-23); Calcium 9.1 mg/dL (8.5-10.5); Carbon Dioxide 28 mmol/L (22-29); Chloride 98 mmol/L (98-107); Creatinine Clr Calc Pharmacy 73.4134; Globulin 2.9 g/dL (1.3-4.6); Glucose 117 mg/dL (65-115); Osmolality Calculated 287 mOsm/kg (285-295); Potassium 3.9 mmol/L (3.5-5.1); Sodium 137 mmol/L (136-145); Thyroid Stimulating Hormone 1.63 uIU/mL (0.27-4.20); Total Protein 7.4 g/dL (6.6-8.7)
[2025-05-30] MEDS: nivolumab 240 MG in sodium chloride 0.9% 250 ML 548 MG IV (09:50)
[2025-05-30 10:28] VITALS: BP 131/85; PULSE 49; TEMP 36.4; O2SAT 99
== END 2025-05-30 23:59 | disposition home or self-care (01) ==
PROVIDERS: Nurse Practitioner Family; PCP Family Medicine; Visit Provider Internal Medicine Medical Oncology
DX: Z51.12 Encounter for antineoplastic immunotherapy; C64.2 Malignant neoplasm of left kidney, except renal pelvis; C79.89 Secondary malignant neoplasm of other specified sites; R03.0 Elevated blood-pressure reading, without diagnosis of hypertension; Z79.899 Other long term (current) drug therapy; Z87.891 Personal history of nicotine dependence; Z53.9 Procedure and treatment not carried out, unspecified reason
CPT/HCPCS: 80053; 84443; 85025; 96413; 99214; A4222; J7050; J9299

== ENCOUNTER 2025-06-27 09:00 | Oncology outpatient (recurring) (ONCR) | payer MEDICARE, OTHER, SELFPAY ==
[2025-06-13 08:51] LABS: Hematocrit 39.4 % (37-53); Hemoglobin 13.70 g/dL (11.27-16.99); Mean Corpuscular HGB Conc 34.8 g/dL (30-55); Mean Corpuscular Hemoglobin 31.6 pg (27-33); Mean Corpuscular Volume 90.8 fl (82-101); Nucleated Red Blood Cells % 0 %; Platelet Count 147 10^3/cmm (157-399); Red Blood Count 4.34 10^6/uL (3.85-5.65); White Blood Count 4.56 10^3/uL (3.29-11.43)
[2025-06-13 09:17] LABS: Alanine Aminotransferase 36 U/L (0-41); Albumin Level 4.2 g/dL (3.5-5.2); Alkaline Phosphatase 67 U/L (40-130); Aspartate Amino Transferase 33 U/L (0-40); Blood Urea Nitrogen 17 mg/dL (8-23); Calcium 9.5 mg/dL (8.5-10.5); Carbon Dioxide 30 mmol/L (22-29); Chloride 97 mmol/L (98-107); Globulin 2.9 g/dL (1.3-4.6); Glucose 117 mg/dL (65-115); Osmolality Calculated 285 mOsm/kg (285-295); Sodium 136 mmol/L (136-145); Thyroid Stimulating Hormone 2.33 uIU/mL (0.27-4.20); Total Protein 7.1 g/dL (6.6-8.7)
[2025-06-13 09:18] LABS: Anion Gap 13.2 (5-19); Potassium 4.2 mmol/L (3.5-5.1)
[2025-06-13] MEDS: nivolumab 240 MG in sodium chloride 0.9% 250 ML 548 MG IV (10:24)
[2025-06-13 11:14] VITALS: BP 136/63; PULSE 38; RESP 17; TEMP 36.3; O2SAT 95
[2025-06-27 09:17] LABS: Hematocrit 42.1 % (37-53); Hemoglobin 14.30 g/dL (11.27-16.99); Mean Corpuscular HGB Conc 34.0 g/dL (30-55); Mean Corpuscular Hemoglobin 31.4 pg (27-33); Mean Corpuscular Volume 92.5 fl (82-101); Nucleated Red Blood Cells % 0 %; Platelet Count 183 10^3/cmm (157-399); Red Blood Count 4.55 10^6/uL (3.85-5.65); White Blood Count 4.53 10^3/uL (3.29-11.43)
[2025-06-27 09:41] LABS: Alanine Aminotransferase 36 U/L (0-41); Albumin Level 4.2 g/dL (3.5-5.2); Alkaline Phosphatase 66 U/L (40-130); Anion Gap 15.2 (5-19); Aspartate Amino Transferase 29 U/L (0-40); Blood Urea Nitrogen 20 mg/dL (8-23); Calcium 9.4 mg/dL (8.5-10.5); Carbon Dioxide 29 mmol/L (22-29); Chloride 97 mmol/L (98-107); Creatinine Clr Calc Pharmacy 80.7547; Globulin 3.1 g/dL (1.3-4.6); Glucose 105 mg/dL (65-115); Osmolality Calculated 287 mOsm/kg (285-295); Potassium 4.2 mmol/L (3.5-5.1); Sodium 137 mmol/L (136-145); Thyroid Stimulating Hormone 1.79 uIU/mL (0.27-4.20); Total Protein 7.3 g/dL (6.6-8.7)
[2025-06-27] MEDS: nivolumab 240 MG in sodium chloride 0.9% 250 ML 548 MG IV (10:43)
[2025-06-27 11:28] VITALS: BP 134/84; PULSE 38; RESP 17; TEMP 36.3; O2SAT 97
== END 2025-06-27 23:59 | disposition home or self-care (01) ==
PROVIDERS: Nurse Practitioner Family; PCP Family Medicine; Visit Provider Internal Medicine Medical Oncology
DX: Z51.12 Encounter for antineoplastic immunotherapy; C64.2 Malignant neoplasm of left kidney, except renal pelvis; R03.0 Elevated blood-pressure reading, without diagnosis of hypertension; Z79.899 Other long term (current) drug therapy; Z90.5 Acquired absence of kidney; Z87.891 Personal history of nicotine dependence; Z53.9 Procedure and treatment not carried out, unspecified reason
CPT/HCPCS: 80053; 84443; 85025; 96413; 99214; A4222; J7050; J9299

== ENCOUNTER 2025-07-15 09:57 | Outpatient (CLI) | payer MEDICARE, OTHER, SELFPAY ==
--- NOTE | 2025-07-15 10:00 | PETR_ITS ---
PROCEDURE INFORMATION: Exam: PET/CT Skull Base to Mid-thigh Exam date and time: 07/15/2025 10:42 AM Age: 70 years old Clinical indication: Condition or disease; Primary cancer: Metastatic renal cell carcinoma, LABS AND CLINICAL REPORTS: Glucose: 121 mg/dl Treatment strategy for malignancy (PET staging): Restaging (PS) TECHNIQUE: Imaging protocol: Following at least four-hour fasting and following the injection of radiopharmaceutical, low dose CT images were obtained. Then, PET images were obtained. Attenuation corrected images were constructed using the CT scan. Fused images of PET and CT were reviewed. The standardized uptake values (SUV) reported below are maximum values within a region of interest, expressed in gm/ml. Exam includes orbital meatal line to mid-thigh. SUV normalization method: BodyWeight Radiopharmaceutical: 11.64 mCi F-18 FDG (Fluorodeoxyglucose), IV. Time of imaging post radiopharmaceutical administration: 46 minutes Injection site: left ac COMPARISON: PT PET skull to thigh SUBS [id number] 04/29/2025 1:29 PM FINDINGS: Brain: Visualized brain has normal physiologic uptake. Pharynx: No abnormal uptake. Larynx: No abnormal uptake. Lungs, pleura and trachea: No abnormal uptake. Heart: Normal physiologic uptake. Mediastinal space: No abnormal uptake. Liver: No abnormal uptake. Gallbladder and biliary ducts: No abnormal uptake. Pancreas: No abnormal uptake. Spleen: Stable centrally necrotic mass measuring 9 x 6 cm with SUV max 12.4, previously 11.2. Adrenal glands: Stable appearance of left adrenal gland involvement in left retroperitoneal mass. Unremarkable right adrenal gland. Kidneys and ureters: Normal physiologic uptake on the right. Prior left nephrectomy. Stomach and bowel: Diffuse uptake along the stomach, small and large bowel without underlying CT abnormality is likely benign physiologic. Colonic diverticulosis without findings of diverticulitis. Intraperitoneal and retroperitoneal spaces: Stable FDG avid metastatic deposits at the left inferior diaphragmatic margin, index measuring 2 cm on axial image 136 with SUV max 12.6, previously 11.3. Stable left retroperitoneal mass involving the para-aortic and retrocrural spaces measuring approximately 4.1 x 3.7 x 5.3 cm shows SUV max 23.1, previously 25.8. More inferior FDG avid left retroperitoneal mass versus enlarged lymph node is also stable, measuring 1.6 cm in the short axis on axial image 172. Vasculature: No abnormal uptake. Mild systemic atherosclerotic calcification without aortic aneurysm. Stable pulmonary arterial dilatation. Lymph nodes: See Intraperitoneal and retroperitoneal spaces findings. Skeleton: No abnormal uptake in the visualized axial and appendicular skeletal system. Degenerative change along the axial skeletal system. Soft tissues: No abnormal uptake in the visualized head, neck, chest, abdomen, pelvis, and extremities. Small fat containing periumbilical hernia. METRICS: Mediastinal blood pool: SUV mean 2.3 Liver uptake: SUV mean 2.8 PET/PET skull to thigh SUBS [id number] IMPRESSION: Compared to 04/29/2025, stable disease to include left retroperitoneal mass involving the nephrectomy bed (and more inferior mass versus lymphadenopathy), splenic metastasis, and metastatic deposits at left inferior diaphragmatic margin.
== END 2025-07-15 09:58 | disposition home or self-care (01) ==
LOC: RAD 09:57
PROVIDERS: PCP Family Medicine; Visit Provider Internal Medicine Medical Oncology
DX: C79.89 Secondary malignant neoplasm of other specified sites (principal); C64.9 Malignant neoplasm of unspecified kidney, except renal pelvis; R16.1 Splenomegaly, not elsewhere classified; C74.92 Malignant neoplasm of unspecified part of left adrenal gland; Z90.5 Acquired absence of kidney; K57.50 Diverticulosis of both small and large intestine without perforation or abscess without bleeding; I70.0 Atherosclerosis of aorta; K44.9 Diaphragmatic hernia without obstruction or gangrene; G31.89 Other specified degenerative diseases of nervous system
CPT/HCPCS: 78815; A9552

== ENCOUNTER 2025-07-25 09:00 | Oncology outpatient (recurring) (ONCR) | payer MEDICARE, OTHER, SELFPAY ==
[2025-07-11 08:25] LABS: Hematocrit 41.8 % (37-53); Hemoglobin 14.00 g/dL (11.27-16.99); Mean Corpuscular HGB Conc 33.5 g/dL (30-55); Mean Corpuscular Hemoglobin 31.3 pg (27-33); Mean Corpuscular Volume 93.3 fl (82-101); Nucleated Red Blood Cells % 0 %; Platelet Count 172 10^3/cmm (157-399); Red Blood Count 4.48 10^6/uL (3.85-5.65); White Blood Count 4.52 10^3/uL (3.29-11.43)
[2025-07-11 08:56] LABS: Alanine Aminotransferase 36 U/L (0-41); Albumin Level 4.5 g/dL (3.5-5.2); Alkaline Phosphatase 66 U/L (40-130); Anion Gap 13.1 (5-19); Aspartate Amino Transferase 34 U/L (0-40); Blood Urea Nitrogen 20 mg/dL (8-23); Calcium 8.6 mg/dL (8.5-10.5); Carbon Dioxide 33 mmol/L (22-29); Chloride 98 mmol/L (98-107); Globulin 2.7 g/dL (1.3-4.6); Glucose 128 mg/dL (65-115); Osmolality Calculated 294 mOsm/kg (285-295); Potassium 4.1 mmol/L (3.5-5.1); Sodium 140 mmol/L (136-145); Thyroid Stimulating Hormone 2.09 uIU/mL (0.27-4.20); Total Protein 7.2 g/dL (6.6-8.7)
[2025-07-11] MEDS: nivolumab 240 MG in sodium chloride 0.9% 250 ML 548 MG IV (09:50)
[2025-07-11 10:37] VITALS: BP 121/77; PULSE 75; TEMP 36.4; O2SAT 99
--- NOTE | 2025-07-12 10:38 | PC.PHAR ---
patient has requested double dose of opdivo on 07/25/25 because he is unable to come for his 08/[address] barr has okays this. i have placed in draft but the system won't let me postpone further treatments. i have reached out to [facility] to ensure this is okay with his insurance.
[2025-07-25 09:19] LABS: Hematocrit 41.9 % (37-53); Hemoglobin 14.30 g/dL (11.27-16.99); Mean Corpuscular HGB Conc 34.1 g/dL (30-55); Mean Corpuscular Hemoglobin 31.6 pg (27-33); Mean Corpuscular Volume 92.5 fl (82-101); Nucleated Red Blood Cells % 0 %; Platelet Count 166 10^3/cmm (157-399); Red Blood Count 4.53 10^6/uL (3.85-5.65); White Blood Count 4.50 10^3/uL (3.29-11.43)
[2025-07-25 09:49] LABS: Alanine Aminotransferase 48 U/L (0-41); Albumin Level 4.1 g/dL (3.5-5.2); Alkaline Phosphatase 73 U/L (40-130); Blood Urea Nitrogen 15 mg/dL (8-23); Calcium 9.1 mg/dL (8.5-10.5); Carbon Dioxide 31 mmol/L (22-29); Chloride 94 mmol/L (98-107); Creatinine Clr Calc Pharmacy 73.5735; Globulin 3.0 g/dL (1.3-4.6); Glucose 103 mg/dL (65-115); Osmolality Calculated 277 mOsm/kg (285-295); Sodium 133 mmol/L (136-145); Thyroid Stimulating Hormone 2.05 uIU/mL (0.27-4.20); Total Protein 7.1 g/dL (6.6-8.7)
[2025-07-25 10:14] LABS: Anion Gap 12.1 (5-19); Aspartate Amino Transferase 43 U/L (0-40); Potassium 4.1 mmol/L (3.5-5.1)
[2025-07-25] MEDS: nivolumab 480 MG in sodium chloride 0.9% 250 ML 596 MG IV (10:27)
[2025-07-25 11:16] VITALS: BP 142/92; PULSE 45; RESP 17; TEMP 36; O2SAT 98
== END 2025-07-25 23:59 | disposition home or self-care (01) ==
PROVIDERS: Nurse Practitioner Family; PCP Family Medicine; Visit Provider Internal Medicine Medical Oncology
DX: Z51.12 Encounter for antineoplastic immunotherapy; C64.2 Malignant neoplasm of left kidney, except renal pelvis; R03.0 Elevated blood-pressure reading, without diagnosis of hypertension; Z79.899 Other long term (current) drug therapy; Z90.5 Acquired absence of kidney; Z87.891 Personal history of nicotine dependence; Z53.9 Procedure and treatment not carried out, unspecified reason
CPT/HCPCS: 80053; 84403; 84443; 85025; 96413; 99214; A4222; J7050; J9299

== ENCOUNTER 2025-08-08 10:18 | Oncology outpatient (recurring) (ONCR) | payer MEDICARE, OTHER, SELFPAY ==
[2025-08-08 10:59] LABS: Hematocrit 42.3 % (37-53); Hemoglobin 14.20 g/dL (11.27-16.99); Mean Corpuscular HGB Conc 33.6 g/dL (30-55); Mean Corpuscular Hemoglobin 31.0 pg (27-33); Mean Corpuscular Volume 92.4 fl (82-101); Nucleated Red Blood Cells % 0 %; Platelet Count 191 10^3/cmm (157-399); Red Blood Count 4.58 10^6/uL (3.85-5.65); White Blood Count 4.92 10^3/uL (3.29-11.43)
[2025-08-08 12:12] LABS: Alanine Aminotransferase 39 U/L (0-41); Albumin Level 4.1 g/dL (3.5-5.2); Alkaline Phosphatase 65 U/L (40-130); Anion Gap 12.6 (5-19); Aspartate Amino Transferase 34 U/L (0-40); Blood Urea Nitrogen 16 mg/dL (8-23); Calcium 8.5 mg/dL (8.5-10.5); Carbon Dioxide 27 mmol/L (22-29); Chloride 99 mmol/L (98-107); Globulin 2.7 g/dL (1.3-4.6); Glucose 106 mg/dL (65-115); Osmolality Calculated 282 mOsm/kg (285-295); Potassium 3.6 mmol/L (3.5-5.1); Sodium 135 mmol/L (136-145); Thyroid Stimulating Hormone 1.34 uIU/mL (0.27-4.20); Total Protein 6.8 g/dL (6.6-8.7)
== END 2025-09-04 23:59 | disposition home or self-care (01) ==
PROVIDERS: PCP Family Medicine; Visit Provider Internal Medicine Medical Oncology
DX: C64.2 Malignant neoplasm of left kidney, except renal pelvis (principal); C79.89 Secondary malignant neoplasm of other specified sites; R03.0 Elevated blood-pressure reading, without diagnosis of hypertension; Z90.5 Acquired absence of kidney; Z87.891 Personal history of nicotine dependence; Z79.899 Other long term (current) drug therapy
CPT/HCPCS: 80053; 84443; 85025; 99214

== ENCOUNTER 2025-09-19 09:00 | Oncology outpatient (recurring) (ONCR) | payer MEDICARE, OTHER, SELFPAY ==
[2025-09-05 09:44] LABS: Hematocrit 41.9 % (37-53); Hemoglobin 14.10 g/dL (11.27-16.99); Mean Corpuscular HGB Conc 33.7 g/dL (30-55); Mean Corpuscular Hemoglobin 31.2 pg (27-33); Mean Corpuscular Volume 92.7 fl (82-101); Nucleated Red Blood Cells % 0 %; Platelet Count 200 10^3/cmm (157-399); Red Blood Count 4.52 10^6/uL (3.85-5.65); White Blood Count 5.47 10^3/uL (3.29-11.43)
[2025-09-05 10:13] LABS: Alanine Aminotransferase 30 U/L (0-41); Albumin Level 4.3 g/dL (3.5-5.2); Alkaline Phosphatase 67 U/L (40-130); Aspartate Amino Transferase 29 U/L (0-40); Blood Urea Nitrogen 15 mg/dL (8-23); Calcium 9.3 mg/dL (8.5-10.5); Carbon Dioxide 30 mmol/L (22-29); Chloride 97 mmol/L (98-107); Free T4 Free Thyroxine 1.29 ng/dL (0.82-1.77); Globulin 2.9 g/dL (1.3-4.6); Glucose 100 mg/dL (65-115); Osmolality Calculated 283 mOsm/kg (285-295); Sodium 136 mmol/L (136-145); Thyroid Stimulating Hormone 1.43 uIU/mL (0.27-4.20); Total Protein 7.2 g/dL (6.6-8.7)
[2025-09-05 10:15] LABS: Anion Gap 12.9 (5-19); Potassium 3.9 mmol/L (3.5-5.1)
[2025-09-05] MEDS: nivolumab 240 MG in sodium chloride 0.9% 250 ML 548 MG IV (11:42)
[2025-09-05 12:20] VITALS: PULSE 63; RESP 17; TEMP 36.6; O2SAT 98
[2025-09-19 09:12] LABS: Hematocrit 40.5 % (37-53); Hemoglobin 13.70 g/dL (11.27-16.99); Mean Corpuscular HGB Conc 33.8 g/dL (30-55); Mean Corpuscular Hemoglobin 31.4 pg (27-33); Mean Corpuscular Volume 92.9 fl (82-101); Nucleated Red Blood Cells % 0 %; Platelet Count 188 10^3/cmm (157-399); Red Blood Count 4.36 10^6/uL (3.85-5.65); White Blood Count 4.50 10^3/uL (3.29-11.43)
[2025-09-19 09:48] LABS: Alanine Aminotransferase 37 U/L (0-41); Albumin Level 4.4 g/dL (3.5-5.2); Alkaline Phosphatase 64 U/L (40-130); Anion Gap 12.1 (5-19); Aspartate Amino Transferase 38 U/L (0-40); Blood Urea Nitrogen 16 mg/dL (8-23); Calcium 9.4 mg/dL (8.5-10.5); Carbon Dioxide 30 mmol/L (22-29); Chloride 100 mmol/L (98-107); Globulin 2.6 g/dL (1.3-4.6); Glucose 135 mg/dL (65-115); Osmolality Calculated 289 mOsm/kg (285-295); Potassium 4.1 mmol/L (3.5-5.1); Sodium 138 mmol/L (136-145); Thyroid Stimulating Hormone 1.65 uIU/mL (0.27-4.20); Total Protein 7.0 g/dL (6.6-8.7)
[2025-09-19 09:50] VITALS: BP 127/64; PULSE 55; RESP 17; TEMP 36.2; O2SAT 98
[2025-09-19] MEDS: nivolumab 240 MG in sodium chloride 0.9% 250 ML 548 MG IV (10:24)
[2025-09-19 10:57] VITALS: BP 141/75; PULSE 47; RESP 16; TEMP 36.4; O2SAT 97
== END 2025-09-19 23:59 | disposition home or self-care (01) ==
PROVIDERS: Internal Medicine Medical Oncology; PCP Family Medicine; Visit Provider Nurse Practitioner Family
DX: Z51.12 Encounter for antineoplastic immunotherapy; C64.2 Malignant neoplasm of left kidney, except renal pelvis; R03.0 Elevated blood-pressure reading, without diagnosis of hypertension; Z79.899 Other long term (current) drug therapy; Z79.631 Long term (current) use of antimetabolite agent; Z90.5 Acquired absence of kidney; Z87.891 Personal history of nicotine dependence; Z53.9 Procedure and treatment not carried out, unspecified reason
CPT/HCPCS: 80053; 84439; 84443; 84481; 85025; 96413; 99213; 99214; A4222; J7050; J9299

== ENCOUNTER 2025-10-03 11:02 | Oncology outpatient (recurring) (ONCR) | payer MEDICARE, OTHER, SELFPAY ==
[2025-10-03 11:19] LABS: Hematocrit 42.4 % (37-53); Hemoglobin 14.20 g/dL (11.27-16.99); Mean Corpuscular HGB Conc 33.5 g/dL (30-55); Mean Corpuscular Hemoglobin 31.1 pg (27-33); Mean Corpuscular Volume 93.0 fl (82-101); Nucleated Red Blood Cells % 0 %; Platelet Count 168 10^3/cmm (157-399); Red Blood Count 4.56 10^6/uL (3.85-5.65); White Blood Count 4.81 10^3/uL (3.29-11.43)
[2025-10-03 13:52] LABS: Alanine Aminotransferase 39 U/L (0-41); Albumin Level 4.3 g/dL (3.5-5.2); Alkaline Phosphatase 63 U/L (40-130); Anion Gap 14.0 (5-19); Aspartate Amino Transferase 32 U/L (0-40); Blood Urea Nitrogen 18 mg/dL (8-23); Calcium 9.3 mg/dL (8.5-10.5); Carbon Dioxide 29 mmol/L (22-29); Chloride 98 mmol/L (98-107); Creatinine Clr Calc Pharmacy 73.0927; Globulin 2.3 g/dL (1.3-4.6); Glucose 96 mg/dL (65-115); Osmolality Calculated 286 mOsm/kg (285-295); Potassium 4.0 mmol/L (3.5-5.1); Sodium 137 mmol/L (136-145); Thyroid Stimulating Hormone 1.54 uIU/mL (0.27-4.20); Total Protein 6.6 g/dL (6.6-8.7)
[2025-10-03] MEDS: nivolumab 240 MG in sodium chloride 0.9% 250 ML 548 MG IV (14:19)
[2025-10-03 15:03] VITALS: BP 130/90; PULSE 71; RESP 18; TEMP 35.9; O2SAT 96
== END 2025-10-05 23:59 | disposition home or self-care (01) ==
PROVIDERS: Internal Medicine Medical Oncology; PCP Family Medicine; Visit Provider Nurse Practitioner Family
DX: Z51.12 Encounter for antineoplastic immunotherapy (principal); C64.2 Malignant neoplasm of left kidney, except renal pelvis; C79.89 Secondary malignant neoplasm of other specified sites; R03.0 Elevated blood-pressure reading, without diagnosis of hypertension; Z90.5 Acquired absence of kidney; Z87.891 Personal history of nicotine dependence; Z79.620 Long term (current) use of immunosuppressive biologic; Z79.899 Other long term (current) drug therapy
CPT/HCPCS: 80053; 84443; 85025; 96413; 99214; A4222; J7050; J9299